=== PATIENT | male | born 1960 | race Caucasian/White ===

== ENCOUNTER → 2017-11-01 09:50 | Outpatient (CLI) | payer OTHER, SELFPAY ==
[2017-11-01 11:23] LABS: ALB/GLOB Ratio 1.2 RATIO (0.9-2.4); AST(SGOT) 22 U/L (15-37); Alanine Aminotransfer ALT/SGPT 28 U/L (16-61); Albumin, Serum 3.7 g/dL (3.2-5.0); Alkaline Phosphatase 56 U/L (45-117); Anion Gap 9 (5-15); BUN 18 mg/dL (7-18); BUN/Creat Ratio 16.1 RATIO (10-20); Calcium,Total 8.4 mg/dL (8.5-10.1); Chloride 106 mmol/L (98-107); Cholesterol 146 mg/dL (200); Creatinine, Serum 1.12 mg/dL (0.70-1.30); EST Glomerular Filtration Rate 72 mL/min (>60); Est Glom Filt Rate - Afr Amer 87 mL/min (>60); Globulin 3.1 g/dL (2.2-4.2); Glucose 100 mg/dL (74-106); High Density Lipoprotein 41 mg/dL; Potassium 4.1 mmol/L (3.5-5.1); Protein, Total 6.8 g/dL (6.4-8.2); Sodium Level 142 mmol/L (136-145); Triglycerides 71 mg/dL; Very Low Density Lipoprotein 14 mg/dL (5-40)
== END ==
PROVIDERS: Family Provider Family Medicine; PCP Family Medicine; Visit Provider Family Medicine
DX: I10 Essential (primary) hypertension (principal)
CPT/HCPCS: 36415; 80053; 80061

== ENCOUNTER 2017-11-14 14:00 | Outpatient (RCR) | payer OTHER, SELFPAY ==
--- NOTE | 2017-10-29 14:56 | HP.PTEVAL_ITS ---
Patient's Visit Information EDUARDO WESTBROOK is a 57 year old M referred to Physical Therapy by JAIR Wade with a diagnosis of L hip OA. Date of Evaluation: 10/29/17 Physical Therapist: Azam Hawkins DPT, OC - Visit Plan Frequency: 3x /Week Duration: 4-6 Weeks Plan: 3x/week for 3-6 weeks for. 1. rollout ITB, HS, Hip flexor adn quad and stretch, teach stretches for HEP, hip stabs for ext and abd adn progress to EHP. May use ESTIM and MH if painful. - Subjective Subjective: L hip is not getting better. Flared up with pain a couple years ago and got better on its own. Flared back up earlier this summer for a weeka nd got better. Then 2 weeks ago it started hurting again insidiously. Could hardly do anything weightbearing and walked very slow. Pain is anteror L hip and groin. Better once he gets moving, transitions are painful. Stabbing pain with flexion. Doctor x rayed and showed some OA. Sent for PT. F/U in 4 weeks. Sleep is Ok. Rolling can hurt. 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 Basic ADLs are OK, slower and painful. Walks for fitness with and she had to slow down. Hobbies include fishing and hiking but not lately becasue of hip. Grandkids were hard to play with this past weekend due to pain, ages 5,3,1. - Pain L hip anterior Pain Intensity (Out of 10): 0 Pain Intensity Range: 0, 6 - Objective L posterior pelvic rotation to avoid L hip ext at end stance. Slight antalgia today but not bad. Trasfers I but this hurts the most for a quick second as well as when he lifts the leg but not isometric hold. sensation LE WNL to gross light touch. reflexes 2/3 patella and achilles. Strength HIP ext and abd 4- and other hip 4+/5, knees 5/5 and ankles 5/5. Flexibility: HS mod tight , hip flexors max tight, ITB min tight B. AROM L hip flexion to 110 with mild discomfort, abd symmetrical, IR painful, ext rotation 50 degrees. R ext rotation 60 and IR not painful at 15 degrees. steps are reciprocal with a rail and hurts to ascend L hip, he tends to just use R. + L scour. - JOSE MANUEL, slight + FADDIR L - Goals Goal 1:: Pt feel 100% back to normal with L hip pain and gait Goal Time Frame: 4-6 Weeks Goal 2:: Pt I in appropriate ex to minimize future problems Goal Time Frame: 4-6 Weeks Goal 3:: Pt walk with at her normal speed for fitness without pain Goal Time Frame: 4-6 Weeks Goal 4:: Transfer out of chair without noticing pain and roll in bed easily. Goal Time Frame: 4-6 Weeks - Rehabilitation Potential Physical Therapy Diagnosis: L hip OA Rehabilitation Potential: Fair - Anticipated Interventions Patient/Client Instruction: Educate patient on: Condition, Plan of Care For the Purpose of:: To decrease pain, To improve muscle performance and motor function, To improve ability of physical actions for home/community/work/leisure Therapeutic Exercise to Include: Strength training, Flexibilty training, Gait and locomotor training, Active ROM For the Purpose of:: To decrease pain, To decrease swelling/inflammation, To increase ROM, To improve performance and independence with ADL's, To improve ability of physical actions for home/community/work/leisure Manual Therapy Techniques to Include: Soft tissue mobilization For the Purpose of:: To improve nutrient delivery to tissue TENS: Yes Thermo therapy (hot pack): Yes For the Purpose of:: To decrease pain Thank you for the opportunity to evaluate your patient. For Medicare and Medicare HMO plans, please review the plan of care and approve it. It will need to be FAXED BACK to us at [phone] for Medicare purposes. Please let me know if there are questions or concerns regarding this plan of care. Physician Signature: Date:
--- NOTE | 2017-11-14 15:13 | HP.PTREVAL_ITS ---
JAIR Wade, It has been my pleasure to treat EDUARDO WESTBROOK over the last 9 visits for L hip OA. Please see the progress note below for an update on the physical therapy plan of care! Subjective: Took anti inflammatory this morning. Will see doctor next week. Not sure next week. Pain this week has been 5/10 with transfers. in L groin. No pain at rest. Sleep is OK. HEP at home is stretches. Objective/Function: IR end range to L hip still mildly painful. Transfers adn gait are I but slight L antalgia. Strength in L hip 4/5 abd and ext. Still very tight in quad and hip flexor but no tenderness anteriorly. OVERALL SLIGHTLY BETTER BUT SLOW PROGRESS AND LIKELY DUE TO ANTI INFLAMMATORY IN PATIENT 'S MIND. Plan Plan: PATIENT TO F/U WITH DOCTOR NEXT WEEK AND CONTINUE WITH HEP AND F/U THREE WEEKS FOR EX PROGRESSION IF NEEDED(DIPS, SQUATS, SLS). PT TO CALL PRIOR IF WORSENS OR DOCTOR DESIRES SOMETHING DIFFERENT. POOL CAN BE CONSIDERED IF NO OTHER OPTIONS. Goals Goal 1:: Pt feel 100% back to normal with L hip pain and gait Goal Time Frame: 4-6 Weeks Goal Progress: Progressing Goal 2:: Pt I in appropriate ex to minimize future problems Goal Time Frame: 4-6 Weeks Goal Progress: Goal Met Goal 3:: Pt walk with at her normal speed for fitness without pain Goal Time Frame: 4-6 Weeks Goal Progress: Progressing Goal 4:: Transfer out of chair without noticing pain and roll in bed easily. Goal Time Frame: 4-6 Weeks Goal Progress: needs anti inflamm Anticipated Interventions Patient/Client Instruction: Educate patient on: Condition, Plan of Care For the Purpose of:: To decrease pain, To improve muscle performance and motor function, To improve ability of physical actions for home/community/work/leisure Therapeutic Exercise to Include: Strength training, Flexibilty training, Gait and locomotor training, Active ROM For the Purpose of:: To decrease pain, To decrease swelling/inflammation, To increase ROM, To improve performance and independence with ADL's, To improve ability of physical actions for home/community/work/leisure Manual Therapy Techniques to Include: Soft tissue mobilization For the Purpose of:: To improve nutrient delivery to tissue TENS: Yes Thermo therapy (hot pack): Yes For the Purpose of:: To decrease pain Please do not hesitate to contact me at [phone] by phone or Fax: if you have questions or concerns regarding this new plan of care! Sincerely, RAJINDER McgrathT, OC
--- NOTE | 2018-02-03 10:50 | HP.PT.NRP ---
HP - Discharge Summary (1) - Patient Information EDUARDO WESTBROOK was seen in my office for initial evaluation on 10/29/17. The following Plan of Care was established for this patient: Initial Frequency: 3x /Week Initial Duration: 4-6 Weeks - Anticipated Interventions Patient/Client Instruction: Educate patient on: Condition, Plan of Care For the Purpose of:: To decrease pain, To improve muscle performance and motor function, To improve ability of physical actions for home/community/work/leisure Therapeutic Exercise to Include: Strength training, Flexibilty training, Gait and locomotor training, Active ROM For the Purpose of:: To decrease pain, To decrease swelling/inflammation, To increase ROM, To improve performance and independence with ADL's, To improve ability of physical actions for home/community/work/leisure Manual Therapy Techniques to Include: Soft tissue mobilization For the Purpose of:: To improve nutrient delivery to tissue TENS: Yes Thermo therapy (hot pack): Yes For the Purpose of:: To decrease pain This patient was last seen in our office 11/14/17. Pertinent comments regarding their Physical therapy will appear below: Pt seen for 9 visits and was sent back to doctor following last session and was to f/u in three weeks to ensure progress. He neglected to schedule that visit adn at this point it has been over two months and I will discontinue him from my care. At this point I will be discontinuing this patient from physical therapy. I would be happy to see this patient again in the future if found appropriate by the physician. Thank you! Azam Hawkins, DPT, OC
== END 2017-11-14 19:00 | disposition home or self-care (01) ==
LOC: PT 14:00
PROVIDERS: Family Provider Family Medicine; PCP Family Medicine; Visit Provider Physician Assistant Surgical
DX: M16.12 Unilateral primary osteoarthritis, left hip (principal)
CPT/HCPCS: 97110; 97140; 97162; 97530

== ENCOUNTER 2017-11-18 06:05 | Day surgery (SDC) | payer OTHER, SELFPAY ==
[2017-11-18] VITALS (8 sets, daily range): BP systolic 82–144; BP diastolic 48–100; PULSE 65–70; RESP 16; TEMP 35.8–36.8; O2SAT 95–100; BMI 38.0
--- NOTE | 2017-11-18 | IMM_PTH ---
PATIENT: EDUARDO WESTBROOK LOC: EN U#:[id number] AGE/SX: 57/M ROOM: RE11/18/[address]: Dr. Valentin Garcia MD : 1960 BED: DIS: 11/18/2017 SPEC #: [id number] RECD: 11/19/17 14:00 STATUS: EDILBERTO REAnum #: [id number] ACITIE: 11/18/17 00:[address]: Valentin Garcia DEPT: IMMUNOHISTOCHEMISTRY RECD BY: Lissa Lubin ENTERED: 11/19/17 14:03 SP TYPE: IMMUNO OTHR DR: Dr. Ramsey Rosenthal, Tissues: A - Stomach, NOS B - Stomach, NOS C - Cardioesophageal junction D - Esophageal mucous membrane Procedures: H Pylori (initial) QUEEN-2 (initial) CK20 (add) CK7 (add) CK8 (add) HER2 BARRY (add) CDX2 (add) PHYSICIAN & INSTITUTION [place] [id number] SPECIMEN INFORMATION: Tissue Source: A ? Antrum, B ? Antral subcutaneous mass, C ? Mass of cardia, D ? Distal esophagus Clinical Info: Esophageal dysphagia Specimen Number: [id number] CPT code: 23814 x4, 46377 x7 METHODOLOGY: Deparaffinized sections of prefer/formalin-fixed tissue or PAP/DQ stained slides are incubated with monoclonal/polyclonal antibodies/oligonucleotide probes. Localization is made via biotin free immunoperoxidase method. Appropriate controls are performed and reacted as expected. Results on target cell population are indicated in the following table: RESULTS: ANTIBODY / CLONE RESULT Block A H Pylori (polyclonal) negative Block B H Pylori (polyclonal) negative Block C CK7 (OV-TL12/30) negative CK8 ([id number]) positive H Pylori (polyclonal) negative Block D Her-2neu (CB11) negative (1+) CK7 (OV-TL12/30) positive, focal CK8 (46byfnC87) positive CK20 (KS20.8) negative CDX2 ([id number]) positive QUEEN-2 (SP21) positive These tests were developed and their performance characteristics determined by [facility]. They may not have been cleared or approved by the U.S. Food and Drug Administration. The FDA has determined that such clearance or approval is not necessary. INTERPRETATION: A. Antrum, biopsy: Negative for Helicobacter pylori organisms. B. Antral mass, biopsy: Negative for Helicobacter pylori organisms. C. 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 Negative for Helicobacter pylori organisms. D. 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 SJ:wagner 11/20/17
--- NOTE | 2017-11-18 07:00 | EGD_PTH ---
PATIENT: EDUARDO WESTBROOK LOC: EN U#:[id number] AGE/SX: 57/M ROOM: RE11/18/[address]: Dr. Valentin Garcia MD : 1960 BED: DIS: 11/18/2017 SPEC #: [id number] RECD: 11/18/17 10:07 STATUS: EDILBERTO YUNIER #: [id number] CAITIE: 11/18/17 07:[address]: Valentin Garcia DEPT: SURGICAL PATHOLOGY RECD BY: Oscar Delgado ENTERED: 11/18/17 12:15 SP TYPE: EGD BIOPSY JOAN DR: Dr. Ramsey Rosenthal, DO Tissues: A - Gastric mucous membrane B - Gastric mucous membrane C - Gastric mucous membrane D - Esophageal mucous membrane Procedures: Surgery Specimen Level IV HEADER OPERATION: EGD PRE-OP DIAGNOSIS: Esophageal dysphagia TISSUE SUBMITTED: A ? Antral biopsy, B ? Antral subcutaneous mass biopsy, C ? Mass of cardia biopsy, D ? Distal esophagus biopsy MICROSCOPIC DIAGNOSIS A. Antral biopsy: Mild gastritis. B. Antral mass, biopsy: Mild gastritis. Negative for malignancy. C. 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 See comment. Chronic active gastritis. A few lymphoid aggregate formations, favor benign. D. 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 See comment. SJ:rg 11/19/17 COMMENT A & B. The results of immunohistochemistry for Helicobacter pylori will be reported separately ([id number]). C. The results of immunohistochemistry for Helicobacter pylori will be reported separately ([id number]). Immunohistochemistry ([id number]) supports the above diagnosis. D. Immunohistochemistry ([id number]) supports the above diagnosis. The tumor in specimen C & D shows similar morphologic features. Case has been reviewed in consultation with Dr. Shine who concurs with the above diagnosis. IDC:AM MICROSCOPIC DESCRIPTION Slides are reviewed. A & B. The specimen shows fragments of gastric mucosa with chronic inflammatory cell infiltrates in the lamina propria consisting of lymphocytes and plasma cells, consistent with mild chronic gastritis. GROSS DESCRIPTION A - Received in fixative is one container labeled with the patient's name and designated biopsy gastric antrum. The specimen consists of one irregular fragment of light edmondson soft tissue that measures 0.5 x 0.3 x 0.1 cm. The specimen is totally submitted in one cassette. B - Received in fixative is one container labeled with the patient's name and designated antral subcutaneous mass biopsy. The specimen consists of one irregular fragment of light edmondson soft tissue that measures 0.3 x 0.3 x 0.1 cm. The specimen is totally submitted in one cassette. C - Received in fixative is one container labeled with the patient's name and designated biopsy mass of cardia. The specimen consists of multiple irregular fragments of light edmondson soft tissue that in aggregate measure 1 x 0.3 x 0.1 cm. The specimen is totally submitted in one cassette. D - Received in fixative is one container labeled with the patient's name and designated biopsy distal esophagus. The specimen consists of multiple irregular fragments of light edmondson soft tissue that in aggregate measure 1 x 0.5 x 0.1 cm. The specimen is totally submitted in one cassette. / SJ:rg 11/18/17 TC:0 CPT: 37726 x4
--- NOTE | 2017-11-18 07:18 | CT_ITS ---
STUDY: CT CHEST WITH CONTRAST REASON FOR EXAM: Male, 57 years old. Esophageal mass seen on endoscopy. Abdominal bloating. RADIATION DOSAGE (If Supplied By Facility): CTDIvol = ( 23.48 ) mGy, DLP = ( 2497.6 ) mGycm TECHNIQUE: Transaxial imaging was performed following intravenous administration of 100 ml of Isovue 300 contrast material. Multiplanar coronal and sagittal images were reformatted. Individualized dose optimization techniques were used for this CT. COMPARISON: None. FINDINGS: The lungs are normal. There is no demonstrated pleural abnormality. Normal heart and pericardium. There are multiple small lymph nodes within the mediastinum, which are normal in size and morphology most compatible with reactive lymph hyperplasia. Normal hilar regions. Normal enhanced pulmonary arteries. Normal aorta arch and descending thoracic aorta. Normal osseous structures. There is a 1.5 cm x 1.4 cm x 2.8 cm nodular density along the right lateral wall of the distal esophagus extending into the gastroesophageal junction. Circumferential wall thickening at the gastroesophageal junction. CT/Chest WITH Contrast IMPRESSION: 1.5 cm x 1.4 cm x 2.8 cm nodular density in the right lateral wall of the distal esophagus at the level of the gastroesophageal junction with the evidence of circumferential wall thickening of the distal esophagus. Electronically Signed: Luis Miguel Bennett MD at 10:46 EDT Tel [phone], Service support ,
--- NOTE | 2017-11-18 07:18 | CT_ITS ---
STUDY: CT ABDOMEN AND PELVIS WITH CONTRAST REASON FOR EXAM: Male, 57 years old. Esophageal mass seen on endoscopy. RADIATION DOSAGE (If Supplied By Facility): CTDIvol = ( 23.48 ) mGy, DLP = ( 2497.6 ) mGycm TECHNIQUE: Transaxial images were obtained from the dome of the diaphragm to the symphysis pubis without oral contrast. 100 ml of Isovue 300 contrast was administered. Sagittal and coronal images were reconstructed. Individualized dose optimization techniques were used for this CT. COMPARISON: None. FINDINGS: The visualized lung bases are unremarkable. The visualized portions of the heart are within normal limits. 5.8 mm cyst in the inferior aspect of the right lobe of the liver. Normal gallbladder and extrahepatic biliary system. Normal spleen. Normal pancreas. Normal bilateral adrenal glands. Normal right kidney. Punctate calcification in the lower pole calyx of the left kidney. 1.7 cm x 1.6 cm nodular mass along the right lateral wall of the distal esophagus as it enters the gastroesophageal junction. Circumferential wall thickening of the gastroesophageal junction. Normal small intestine. Normal colon. The appendix is visualized and appears normal. There is scattered atherosclerotic calcification of the abdominal aorta, without a demonstrated aneurysm. Normal inferior vena cava. There is borderline retroperitoneal lymphadenopathy with enlarged nodes no greater than 10mm in the short axis diameter. Normal urinary bladder. Small benign-appearing bilateral inguinal lymph nodes. Normal abdominal wall. There are degenerative changes of the visualized lumbar spine. CT/Abdomen/Pelvis WITH Contrast IMPRESSION: Nodules seen along the right lateral wall of the distal esophagus with circumferential wall thickening of the gastroesophageal junction as described. Punctate calcification in the lower pole calyx of the left kidney. Electronically Signed: Luis Miguel Bennett MD at 10:50 EDT Tel [phone], Service support ,
--- NOTE | 2017-11-18 07:20 | PCM.OPRPT ---
Problem List (1) Dysphagia Status: Acute Qualifiers: Dysphagia type: esophageal phase Report of Operation Date of Procedure: 11/18/17 Pre-Operative Diagnosis: Esophageal dysphagia Post-Operative Diagnosis: Mass of the distal esophagus and cardiac at the e.g. junction with evidence of blood loss and ulceration Surgery/Procedure Performed:: Esophagogastroduodenoscopy with multiple cold forceps biopsies Description of Surgical Findings:: Timeout and informed consent was obtained. 87-year-old gentleman was taken to the endoscopy suite. His oropharynx anesthetized with Topex. He was placed in a left lateral decubitus position. Throughout the procedure in aliquots received total 100 mg Demerol and 4 mg of Versed is intravenous sedation. Under direct physician videogastroscope was inserted into the hypopharynx which appear to be unremarkable. Photographs obtained. The scope was advanced into the esophagus. Proximal and mid portions of the esophagus did not appear to be remarkable. The EG junction was remarkable. In the very distal esophagus just proximal to the e.g. junction there was what appeared to be a subcutaneous mass. There is irregularity of the e.g. junction with evidence of ulceration and recent bleeding with coffee-ground material. The EG junction approximately a at 41-42 cm but was distorted. Upon the scope entering the stomach immediately there were coffee ground mucus staining. The scope was advanced down to the antral area with a subcutaneous mass approximately 10 cm from the pylorus was identified. Photographs obtained. Scope was advanced through the pylorus and the first and second portion of the duodenum were inspected this did not appear to be unremarkable. The scope was withdrawn back into the stomach some mild gastritis of the antrum noted. Biopsies obtained of the antrum with cold forceps. Cold forceps were used to sample the mucosa overlying the subcutaneous mass in the more proximal antrum with a photograph was taken. The scope was retroflexed and within the cardia a ulcerated mass at the e.g. junction was identified. Cold forceps were used to sample this and it was friable and bled easily. It seemed to involve at least 50% of the circumference of the e.g. junction. Multiple photographs were obtained. The area it appeared to be ulcerated with evidence of recent bleeding. After several biopsies were obtained from a retroflex view the scope was then straightened and withdrawn back into the distal esophagus where biopsies immediately at the e.g. junction were obtained. There appeared to be a portion of this friable mass that extended into the distal esophagus as well. Difficult to appreciate the extent. Multiple photographs of the distal esophagus with this friable protruding lesion was obtained. Cold forcep biopsies were obtained from this direction as well. Excess fluid nurse aspirated free the scope was withdrawn without additional abnormality. Impression Malignant appearing tumor at the e.g. junction involving the very distal esophagus and cardia. Evidence of recent coffee ground material consistent with ulceration and low-grade bleeding. Mild antral gastritis. Subcutaneous mass of the antrum as noted. Normal-appearing duodenum. Appropriate laboratory will be obtained. CT scan of the chest and abdomen will be obtained. Appropriate oncology referral will be obtained. Appropriate treatment will be expedited for this patient. Medications were given at 0701. The scope was inserted 0704. Procedure was completed at 0712. Cc: Dr. Ishan Garcia M.D., F.A.C.S. Type of Anesthesia:: IV Sedation
[2017-11-18 07:46] LABS: Absolute Lymphocyte Count 0.99 X10^3/ul (0.83-4.51); Absolute Neutrophil Count 4.3 X10^3/uL (2.0-7.7); Basophil# 0.03 X10^3/uL; Basophil% 0.5 % (0-1); Eosinophil# 0.09 X10^3/uL; Eosinophils% 1.5 % (0-5); Hematocrit 25.7 % (40-54); Hemoglobin 7.6 g/dl (13.0-16.5); Lymphocyte # 0.99 X10^3/ul (4.0); Lymphocyte % 16.4 % (19-41); Mean Corp Hgb Conc 29.6 g/gl (32-36); Mean Corpuscular Hgb 22.8 pg (27.0-32.0); Mean Corpuscular Volume 77.2 fL (80-94); Mean Platelet Vol. 10.5 fl (6.2-12.0); Monocyte# 0.63 X10^3/uL; Monocyte% 10.4 % (0-10); Neutrophil # 4.31 X10^3/uL (2.7-7.7); Neutrophil % 71.2 % (47-70); Platelet Count 187 K/mm3 (150-450); RBC Distribution Width CV 15.1 % (11.6-14.6); RBC Distribution Width SD 41.4 fl (35.1-43.9); Red Blood Count 3.33 M/mm3 (4.6-6.2); White Blood Count 6.1 K/mm3 (4.4-11.0)
[2017-11-18 08:00] LABS: POSITIVE COUNT NO; POSITIVE DIFFERENTIAL NO; POSITIVE MORPHOLOGY NO
[2017-11-18 10:45] LABS: ALB/GLOB Ratio 1.3 RATIO (0.9-2.4); AST(SGOT) 18 U/L (15-37); Alanine Aminotransfer ALT/SGPT 21 U/L (16-61); Albumin, Serum 3.3 g/dL (3.2-5.0); Alkaline Phosphatase 55 U/L (45-117); Anion Gap 10 (5-15); BUN 16 mg/dL (7-18); BUN/Creat Ratio 15.2 RATIO (10-20); Calcium,Total 8.2 mg/dL (8.5-10.1); Chloride 108 mmol/L (98-107); Creatinine, Serum 1.05 mg/dL (0.70-1.30); EST Glomerular Filtration Rate 78 mL/min (>60); Est Glom Filt Rate - Afr Amer 94 mL/min (>60); Estimated Creatinine Clearance 86.22 ml/min; Globulin 2.6 g/dL (2.2-4.2); Glucose 109 mg/dL (74-106); Potassium 4.1 mmol/L (3.5-5.1); Protein, Total 5.9 g/dL (6.4-8.2); Sodium Level 142 mmol/L (136-145)
[2017-11-19 11:19] LABS: Carcinoembryonic Antigen 2.1 ng/mL (0.0-4.7)
== END 2017-11-18 09:18 | disposition home or self-care (01) ==
LOC: EN 06:06 → AC 06:07
PROVIDERS: Family Provider Family Medicine; PCP Family Medicine; Visit Provider Surgery
PROC: (CPT 43239; principal; 2017-11-18 06:55)
DX: C16.0 Malignant neoplasm of cardia (principal); K29.70 Gastritis, unspecified, without bleeding; K22.11 Ulcer of esophagus with bleeding; R13.19 Other dysphagia; I10 Essential (primary) hypertension; G47.30 Sleep apnea, unspecified; E66.9 Obesity, unspecified; Z79.1 Long term (current) use of non-steroidal anti-inflammatories (NSAID); Z79.899 Other long term (current) drug therapy
CPT/HCPCS: 43239; 36415; 71260; 74177; 80053; 82378; 85025; 88305; 88341; 88342; 99152; 99153; J7120; Q9967; A4216

== ENCOUNTER → 2017-11-24 07:04 | Outpatient (CLI) | payer OTHER, SELFPAY ==
--- NOTE | 2017-11-24 07:50 | PET_ITS ---
EXAMINATION: FDG PET CT INDICATIONS: A 57-year-old male with 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 COMPARISON EXAMINATION: CT of the chest report dated 11/18/17, CT of the abdomen and pelvis report dated 11/18/17. INDEX LESION SIZE SUV INTERPRETATION Distal esophagus, gastroesophageal junction, gastric cardia 50.9 mm x 41.4 mm (frame 183) 11.0 Fulfills quantitative criteria for viable neoplasm Subcarinal mediastinum 12.6 mm largest (frame 201) 3.3 (max) Fulfills borderline quantitative criteria for viable neoplasm TECHNIQUE: Following the intravenous administration of 15.63 mCi of F-18 deoxyglucose via the left antecubital fossa, multiplanar image acquisitions of the neck, chest, abdomen and pelvis to level of mid thigh, obtained at one hour post radiopharmaceutical administration contemporaneously interpreted with the current CT of the neck, chest, abdomen and pelvis to level of mid thigh, dated 11/24/[address] of the chest report dated 11/18/17, CT of the abdomen and pelvis report dated 11/18/17 reveal: SERUM GLUCOSE LEVEL: 119 mg/dl. HEIGHT: 72 inches. WEIGHT: 275 lbs. FINDINGS: 1. An increase in glucose metabolism is demonstrated in the distribution of the distal esophagus, gastroesophageal junction extending to the gastric cardia. The calculated maximum standard uptake value is 11.0. The maximal axial diameter of the corresponding metabolic, morphologic abnormality on review of CT of the thorax dated 11/24/17 is approximately 50.9 mm (transverse) x 41.4 mm (AP). 2. An increase in FDG concentration appears evident in the subcarinal mediastinum to the left of the midline generating a calculated maximum standard uptake value of 3.3. The maximal axial diameter of the corresponding hypermetabolic soft tissue density on review of CT of the thorax dated 11/24/17 is 12.6 mm (transverse). 3. Normal physiologic distribution of the radiopharmaceutical is apparent in the hepatic (2.8) and splenic parenchyma, both renal units, bladder and visualized intestinal tract. There is uniform distribution of the radiopharmaceutical concentration defined in the visualized cerebellar hemispheres and cerebral cortical structures.? Diffuse intestinal tract activity is noted throughout all four quadrants of the abdominal-pelvic retroperitoneum, mesentery consistent with normal physiologic distribution of the radiopharmaceutical. Homogeneous radiopharmaceutical concentration is apparent in the visualized appendicular-axial skeletal structures. Pertinent CT findings are as follows. CHEST: Bilateral axillary soft tissue densities with fatty hilus formation are non-glucose avid. Subcentimeter additional mediastinal soft tissue is ametabolic. There are no parenchymal densities-nodules noted in the right-left hemithorax demonstrating discernible, quantitatively significant enhanced glucose metabolism. ABDOMEN AND PELVIS: Atherosclerotic calcification is defined in the abdominal aorta without evidence of dilatation, aneurysm formation. Dystrophic calcification manifest within the prostate gland demonstrates no evidence of quantitatively significant enhanced glucose metabolism. Right-left inguinal soft tissue densities with fatty hilus formation reveal no evidence of increased glucose metabolism. SKELETAL: Degenerative changes defined in the cervical, thoracic and lumbar spine demonstrate no evidence for glucose hypermetabolism. PET/PET/CT Tumor Base -Thigh Init IMPRESSION: 1. ABNORMAL EXAMINATION INDICATIVE OF MALIGNANT VIABLE NEOPLASM. 2. Increased radiopharmaceutical concentration defined in the distal esophagus fulfills quantitative criteria for viable neoplasm. 3. The subcarinal mediastinal hypermetabolic focus fulfills borderline quantitative criteria for viable neoplasm. (Nicolasa et al, Journal of Clinical Oncology 16:2142, 1998). 4. Homogenous increased glucose metabolism manifest in the visualized appendicular-axial skeletal structures, in the absence of chemotherapeutic intervention and marrow stimulation, is consistent with the pattern associated with hyperplasia of the hematopoietic marrow. (Moiz, AJR 180:669, 2003). 5. No other quantitatively significant hypermetabolic abnormalities are noted. There is no definitive scintigraphic evidence of distant metastatic disease. Electronic Signature Yahir Barbour D.O. Electronically Signed: Yahir Barbour DO at 8:12 EDT Tel , Service support ,
== END ==
PROVIDERS: Family Provider Family Medicine; PCP Family Medicine; Visit Provider Internal Medicine Hematology & Oncology
DX: C15.5 Malignant neoplasm of lower third of esophagus (principal)
CPT/HCPCS: 78815; A9552; A4216

== ENCOUNTER 2017-11-25 09:59 | Outpatient (RCR) | payer OTHER, SELFPAY | END 2017-12-07 23:59 | LOC: NS 09:59 | PROVIDERS: Family Provider Family Medicine; PCP Family Medicine; Visit Provider Internal Medicine Hematology & Oncology | DX: D50.9 Iron deficiency anemia, unspecified (principal); Z71.3 Dietary counseling and surveillance | CPT/HCPCS: 97802 ==

== ENCOUNTER → 2017-12-04 08:11 | Outpatient (CLI) | payer OTHER, SELFPAY ==
[2017-12-01 15:00] VITALS: BMI 37.5
--- NOTE | 2017-12-04 08:16 | EKG12_ITS ---
Test Reason : PREOP Blood Pressure : / mmHG Vent. Rate : 070 BPM Atrial Rate : 070 BPM P-R Int : 146 ms QRS Dur : 136 ms QT Int : 390 ms P-R-T Axes : 055 -35 042 degrees QTc Int : 421 ms Normal sinus rhythm Left axis deviation Right bundle branch block Left ventricular hypertrophy with QRS widening Abnormal ECG Confirmed by FAITH SIMMS, MANDEEP ([id number]), tape editor JOSY GONZALES ([id number]) on 12/05/2017 1:27:04 PM Referred By: Valentin Garcia Confirmed By:MANDEEP CUEVAS MD
[2017-12-04 09:33] LABS: Hematocrit 35.1 % (40-54); Hemoglobin 10.5 g/dl (13.0-16.5); Mean Corp Hgb Conc 29.9 g/gl (32-36); Mean Corpuscular Hgb 23.7 pg (27.0-32.0); Mean Corpuscular Volume 79.2 fL (80-94); Mean Platelet Vol. 11.1 fl (6.2-12.0); Platelet Count 250 K/mm3 (150-450); RBC Distribution Width CV 20.6 % (11.6-14.6); RBC Distribution Width SD 53.7 fl (35.1-43.9); Red Blood Count 4.43 M/mm3 (4.6-6.2); White Blood Count 6.9 K/mm3 (4.4-11.0)
[2017-12-04 09:39] LABS: Scan Indicated on CBC? Y/N YES- FLAGS NOTED
[2017-12-04 09:55] LABS: Differential Comment SCANNED
== END ==
PROVIDERS: Family Provider Family Medicine; PCP Family Medicine; Referring Provider Surgery; Visit Provider Surgery
DX: Z01.818 Encounter for other preprocedural examination (principal); D64.9 Anemia, unspecified
CPT/HCPCS: 36415; 85027; 93005

== ENCOUNTER 2017-12-08 10:29 | Day surgery (SDC) | payer OTHER, SELFPAY ==
[2017-12-01 15:00] VITALS: BMI 37.5
[2017-12-08 10:48] VITALS: BP 138/80; PULSE 62; RESP 16; TEMP 36.3; O2SAT 99; BMI 37.3
--- NOTE | 2017-12-08 12:14 | DCINST_ITS ---
Discharge Diet: Light diet - advance as tolerated - if you have questions about your diet instructions, please talk to you doctor. Discharge Activity: May Not Drive - for 1 week or while taking narcotic pain medicine. May shower in (days): 1 Lifting Restrictions: 10 pounds Call your doctor if your incision/area has: Continuous Slow Oozing, Sudden Increased Bleeding, Increased Pain/ Swelling, Increased Redness, Foul Smelling Discharge Call your doctor if you observe: Fever of 101 or Higher Suture Line Care: Avoid Pulling/Pushing, Avoid Pinching/Bending Additional Dressing/Incision Instructions:: Change or remove dressing in 4 days. Leave steri-strips in place for 1 week. Allergies/Adverse Reactions: Allergies hydrocodone [From Vicodin] Allergy (Severe, Verified 12/04/17 14:13) Hallucination Penicillins Allergy (Severe, Verified 12/04/17 14:13) Rash Sulfa (Sulfonamide Antibiotics) Allergy (Severe, Verified 12/04/17 14:13) Rash Medications to take at Discharge Multivitamin [Multiple Vitamins] 1 ea PO DAILY 11/18/17 alprazolam 0.5 mg tablet 0.5 mg PO BID-TID PRN #30 tab 11/18/17 atenolol 50 mg tablet 50 mg PO DAILY #90 tab 11/18/17 ferrous sulfate 325 mg (65 mg iron) tablet,delayed release 325 mg PO DAILY #60 tab 11/19/17 Lidocaine/Prilocaine [Lidocaine-Prilocaine Cream] 30 gm TP DAILY PRN PRN #1 cream..g. 12/04/17 Ondansetron [Zofran Odt] 4 mg PO Q8H PRN 30 Days #30 tab.rapdis 12/04/17 Ascorbic Acid [Vitamin C] 500 mg PO DAILY 12/05/17 Oxycodone HCl/Acetaminophen [Percocet 5/325] 1 tablet PO Q6H PRN PRN 3 Days #8 tablet 12/08/17 The following prescriptions were given: Oxycodone HCl/Acetaminophen [Percocet 5/325] 1 tablet PO Q6H PRN PRN 3 Days #8 tablet PRN Reason: Pain Primary Care Physician: Ramsey Rosenthal DO [Primary Care Provider] - Test Results: Test results from this visit will be discussed in further detail at your follow- up appointment, if applicable. Please Follow Up With: Valentin Garcia MD - [phone] When: Call to make an appointment to be seen in about 10 days.
[2017-12-08] MEDS: Bupivacaine Mpf 0.5% 30 ML VIAL (12:22)
--- NOTE | 2017-12-08 13:03 | PCM.OPRPT ---
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 57-year-old gentleman was taken the operating place upon the table. He underwent monitored anesthesia care. Clindamycin 900 g were given intravenously preoperatively because of the patient's penicillin allergy. I elected to use a 6 [place] PowerPort. Reference #[id number]. Lot number [id number]. Expiry date 07/08/2019. The right neck and chest were sterilely prepped draped. 1% lidocaine mixed 50-50 with 0.5% Marcaine was used as local anesthetic. Throughout the procedure total 16 cc was used. Under ultrasound guidance I initially placed a right internal jugular micropuncture needle micropuncture wire the wire did not advance so then I used the introducing needle with the kit. I advanced an 035 J-wire. Fluoroscopy demonstrated good positioning. I instituted a local down upon the right chest wall. Then a transverse incision was created. Using electrocautery I made a subcutaneous pocket. The tubing was then connected from the chest to the neck site. Sheath dilator was placed over the wire. The dilator and wire removed. The catheter was advanced through the sheath. The sheath was split. Because of the patient's body habitus I could not clearly see the tubing and so I used 2 cc of Isovue. That allowed me to see the tip of the catheter in position at the SVC atrial junction. I amputated the catheter connected to the port secured it with a port attachment device placed the port within the pocket with 2-0 silk. Upon aspiration however there appeared to be some kinking. So I released the port reinspected it there had been a small kinking of the tubing IN IN did that. I trimmed the tubing slight amount readjusted with new attachment device replaced the port in the pocket secured it there with one simple suture of 2-0 silk. The port at this time accessed and aspirated and flushed very easily. It was flushed with saline then 2-1/2 cc of heparinized saline. The port site was closed with interrupted 3-0 Vicryl subdermal stitches. The neck was closed with interrupted 5-0 Vicryl subdermal stitches. Steri-Strips Telfa and OpSite dressings applied. Sponge and instrument and needle counts were reported the surgeon be correct. Blood loss was minimal. He tolerated procedure well. He was taken to the recovery area in satisfactory condition without apparent complication. Stat portable chest x-ray is pending. No apparent complication. Specimens none. Drains none. Blood loss minimal. Valentin Garcia M.D., F.A.C.S. Type of Anesthesia:: Local MAC Anesthesiologist: Amena Strickland
--- NOTE | 2017-12-08 13:07 | OP.PCM_ITS ---
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 57-year-old gentleman was taken the operating place upon the table. He underwent monitored anesthesia care. Clindamycin 900 g were given intravenously preoperatively because of the patient's penicillin allergy. I elected to use a 6 [place] PowerPort. Reference #[id number]. Lot number [id number]. Expiry date 07/08/2019. The right neck and chest were sterilely prepped draped. 1% lidocaine mixed 50- 50 with 0.5% Marcaine was used as local anesthetic. Throughout the procedure total 16 cc was used. Under ultrasound guidance I initially placed a right i nternal jugular micropuncture needle micropuncture wire the wire did not advance so then I used the introducing needle with the kit. I advanced an 035 J-wire. Fluoroscopy demonstrated good positioning. I instituted a local down upon the right chest wall. Then a transverse incision was created. Using electrocautery I made a subcutaneous pocket. The tubing was then connected from the chest to the neck site. Sheath dilator was placed over the wire. The dilator and wire removed. The catheter was advanced through the sheath. The sheath was split. Because of the patient's body habitus I could not clearly see the tubing and so I used 2 cc of Isovue. That allowed me to see the tip of the catheter in position at the SVC atrial junction. I amputated the catheter connected to the port secured it with a port attachment device placed the port within the pocket with 2-0 silk. Upon aspiration however there appeared to be some kinking. So I released the port reinspected it there had been a small kinking of the tubing IN IN did that. I trimmed the tubing slight amount readjusted with new attachment device replaced the port in the pocket secured it there with one simple suture of 2-0 silk. The port at this time accessed and aspirated and flushed very easily. It was flushed with saline then 2-1/2 cc of heparinized saline. The port site was closed with interrupted 3-0 Vicryl subdermal stitches. The neck was closed with interrupted 5-0 Vicryl subdermal stitches. Steri-Strips Telfa and OpSite dressings applied. Sponge and instrument and needle counts were reported the surgeon be correct. Blood loss was minimal. He tolerated procedure well. He was taken to the recovery area in satisfactory condition without apparent complication. Stat portable chest x-ray is pending. No apparent complication. Specimens none. Drains none. Blood loss minimal. Valentin Garcia M.D., F.A.C.S. Type of Anesthesia:: Local MAC Anesthesiologist: Amena Strickland
[2017-12-08 13:11] VITALS: BP 118/74; BP 138/80; PULSE 80; RESP 16; TEMP 36.1; O2SAT 100
[2017-12-08 13:15] VITALS: BP 114/75; BP 138/80; PULSE 58; RESP 16; O2SAT 97
--- NOTE | 2017-12-08 13:18 | RAD_ITS ---
STUDY: X-RAY CHEST REASON FOR EXAM: Male, 57 years old. Post port placement. TECHNIQUE: Single AP portable view of the chest. COMPARISON: None. FINDINGS: A right-sided portacatheter has been placed. The tip is in the proximal portion of the superior vena cava. The lungs are clear and expanded. There is no demonstrated pleural abnormality. Normal size heart. Normal mediastinum and osmin. Normal visualized pulmonary arteries. Normal visualized aortic arch and descending thoracic aorta. There are diffuse degenerative changes of the visualized thoracic spine. Normal visualized ribs, clavicles, and shoulders. There is no demonstrated abnormality of the visualized soft tissue structures of the upper abdomen. RAD/Chest 1 View (Portable) IMPRESSION: The tip of the manju catheter is in the proximal portion of the superior vena cava. Electronically Signed: Luis Miguel Bennett MD at 14:44 EDT Tel [phone], Service support ,
[2017-12-08 13:20] VITALS: BP 108/67; BP 138/80; PULSE 57; RESP 16; O2SAT 99
[2017-12-08 13:33] VITALS: BP 105/68; BP 138/80; PULSE 57; RESP 16; TEMP 36.6; O2SAT 97
[2017-12-08 14:30] VITALS: BP 138/80
== END 2017-12-08 14:35 | disposition home or self-care (01) ==
LOC: SDC 10:30 → AC 10:31
PROVIDERS: Family Provider Family Medicine; PCP Family Medicine; Referring Provider Surgery; Visit Provider Surgery
PROC: (CPT 36561; principal; 2017-12-08 12:15)
DX: C15.5 Malignant neoplasm of lower third of esophagus (principal); D64.9 Anemia, unspecified; Z86.718 Personal history of other venous thrombosis and embolism; L40.9 Psoriasis, unspecified; I10 Essential (primary) hypertension; G47.30 Sleep apnea, unspecified
CPT/HCPCS: 00532; 36561; 71045; 77001; J7120; C1788

== ENCOUNTER 2017-12-29 09:17 | Outpatient (RCR) | payer OTHER, SELFPAY ==
[2017-11-25 11:04] VITALS: BMI 37.5
[2017-12-01 15:00] VITALS: BMI 37.5
== END 2018-01-07 23:59 ==
LOC: NS 09:17
PROVIDERS: Family Provider Family Medicine; PCP Family Medicine; Visit Provider Internal Medicine Hematology & Oncology
DX: D50.9 Iron deficiency anemia, unspecified (principal); Z71.3 Dietary counseling and surveillance
CPT/HCPCS: 77336; 77386; 97803

== ENCOUNTER 2018-02-02 13:24 | Outpatient (RCR) | payer OTHER, SELFPAY ==
[2017-12-01 15:00] VITALS: BMI 37.5
[2018-01-27 12:47] VITALS: BMI 36.2
== END 2018-02-06 23:59 ==
LOC: NS 13:24
PROVIDERS: Family Provider Family Medicine; PCP Family Medicine; Visit Provider Internal Medicine Hematology & Oncology
DX: D50.9 Iron deficiency anemia, unspecified (principal); Z71.3 Dietary counseling and surveillance
CPT/HCPCS: 97803

== ENCOUNTER → 2018-03-27 12:00 | Outpatient (CLI) | payer OTHER, SELFPAY ==
[2017-12-01 15:00] VITALS: BMI 37.5
[2018-01-27 12:47] VITALS: BMI 36.2
--- OUTSIDE RECORDS SUMMARY | 2018-06-01 04:46 | XMS RPT_ITS | Summary of Care ---
:1960 Author Organization [facility]'s Address [address] [place] [address] Phone Care Team Providers Name Role Phone GaloRamsey Edward JIMENEZ Primary Care Provider Erika Doan RN Unavailable Unavailable Valentin Myers MD Unavailable Reason for Referral MRI/CAT Scan (Routine) Status Reason Specialty Diagnoses / Procedures Referred By Contact Referred To Contact Closed Diagnoses Malignant neoplasm of esophagus, unspecified location Brigid Harper, Procedures CT ABDOMEN WITH CONTRAST HI CT SCAN OF ABDOMEN CONTRAST DIGITAL DATA ANALYST-INSTRUCTIONAL RESOURCE TEACHER [address] [place] [id number] MRI/CAT Scan (Routine) Status Reason Specialty Diagnoses / Procedures Referred By Contact Referred To Contact Closed Diagnoses Malignant neoplasm of esophagus, unspecified location Brigid Harper, Procedures CT ABDOMEN WITH CONTRAST HI CT SCAN OF ABDOMEN CONTRAST DIGITAL DATA ANALYST-INSTRUCTIONAL RESOURCE TEACHER [address] [address] Reason for Visit MRI/CAT Scan (Routine) Status Reason Specialty Diagnoses / Procedures Referred By Contact Referred To Contact Closed Diagnoses Malignant neoplasm of esophagus, unspecified location Brigid Harper, Procedures CT ABDOMEN WITH CONTRAST HI CT SCAN OF ABDOMEN CONTRAST DIGITAL DATA ANALYST-INSTRUCTIONAL RESOURCE TEACHER [address] [address] Encounter Details Date Type Department Care Team Description 02/17/2018 Hospital Encounter Imaging Outpatient Care Brigid Harper, Sammy Calle DIGITAL DATA ANALYST-INSTRUCTIONAL RESOURCE TEACHER [address] [place] [address] [place] [address] Allergies Active Allergy Reactions Severity Noted Date Comments Penicillins 12/05/2017 Sulfa Antibiotics 12/05/2017 Hydrocodone-Acetaminophen 12/05/2017 as of this encounter Medications Prescription Sig. Disp. Refills Start Date End Date Status atenolol 50 MG Tab tablet DAILY 11/18/2017 Active Ascorbic Acid 100 MG Chew DAILY 11/18/2017 Active Tab ALPRAZolam 0.5 MG Tab 2 to 3 times per 11/18/2017 Active tablet day PRN For anxiety ferrous sulfate 324 (65 Fe) Take 324 mg by Active MG Tab DR tablet mouth 3 times daily with meals. ondansetron 8 MG Tab tablet Take 8 mg by Active mouth every 8 hours as needed for Nausea. prochlorperazine 10 MG Tab Take 10 mg by Active tablet mouth every 6 hours as needed. as of this encounter Active Problems Problem Noted Date Obesity: body mass index of 35.0-39.9 02/17/2018 Malignant neoplasm of lower third of esophagus 12/17/2017 Social History Tobacco Use Types Packs/Day Years Used Date Never Smoker Smokeless Tobacco: Never Used Alcohol Use Drinks/Week oz/Week Comments Yes socially Sex Assigned at Date Recorded Not on file as of this encounter Last Filed Vital Signs Vital Sign Reading Time Taken Blood Pressure 129/78 02/17/2018 4:36 PM EST Pulse 98 02/17/2018 4:36 PM EST Temperature - - Respiratory Rate - - Oxygen Saturation - - Inhaled Oxygen Concentration - - Weight - - Height 180.3 cm (5' 11) 02/17/2018 4:36 PM EST Body Mass Index - - in this encounter Functional Status Functional Status Response Date of Assessment Does this person have serious difficulty walking or Yes 01/20/2018 climbing stairs? as of this encounter Plan of Treatment Upcoming Encounters Date Type Specialty Care Team Description 03/11/2018 Pre-Operative Internal Medicine Callie Conklin MD Assessment [address] [place] [address] 04/09/2018 Hospital Encounter Multispecialty Valentin Myers Malignant neoplasm MD [place] of lower third of [address] esophagus [address] [place] [address] [phone] 04/09/2018 Procedure Pass Multispecialty Pending Results Name Priority Associated Diagnoses Date/Time CT ABDOMEN WITH CONTRAST Routine Malignant neoplasm of 02/17/2018 5:40 PM EST esophagus, unspecified location Scheduled Tests Name Priority Associated Diagnoses Order Schedule CT ABDOMEN WITH CONTRAST Routine Malignant neoplasm of 1 Occurrences starting esophagus, unspecified 02/17/2018 until location 02/17/2018 Health Maintenance Due Date Last Done Comments HEPATITIS C VIRUS SCREENING 1961 HIV SCREENING DISCUSSION 1974 TETANUS 10/21/1979 TDAP (ADULT) 1980 LIPID SCREENING 2001 COLON CANCER SCREENING DISCUSSION 10/21/2011 PROSTATE CANCER SCREENING DISCUSSION 10/21/2011 INFLUENZA VACCINE Completed 12/04/2017, 03/20/2009 as of this encounter Goals Goal Patient Goal Associated Recent Patient-Stated? Author Type Problems Progress Treatment Lifestyle No Suze Doan, LASHAE Note: Kareem Gomez and caregiver will be knowledgeable of plan of care. Seunll be compliant with treatment regimen. As evidenced by patient? s ability to recognize barriers to compliance and kn ow who to contact with questions or concerns. [facility] provided Kareem with education related to above. nutrition Lifestyle No Erika Doan, LASHAE Note: Formatting of this note may be different from the original. Kareem Gomez will maintain adequate nutrition and hydration status prior to, during, and after treatment. Kareem and caregiver will be educated on well balanced and nutritious meals, that can be modified based on preference and needs. Kareem and caregiver will discuss adequate hydration goal with healthcare provider, and will attempt to reach this goal daily. [facility] provided Kareem with education related to above. Wt Readings from Last 3 Encounters: 01/20/18 121.4 kg (267 lb 9.6 oz) 12/09/17 126 kg (277 lb 12.8 oz) as of this encounter Procedures Procedure Name Priority Date/Time Associated Diagnosis Comments CT CHEST WITH Routine 02/17/2018 5:40 PM Malignant neoplasm Results for this CONTRAST EST of esophagus, procedure are in unspecified location the results section. in this encounter Visit Diagnoses Diagnosis Malignant neoplasm of esophagus, unspecified location Administered Medications Inactive Administered Medications - up to 3 most recent administrations Medication Order MAR Action Action Date Dose Rate Site iohexol (OMNIPAQUE) 300 MG/ML Given - Radiology 02/17/2018 17:45 EST 50 mL vial 50 mL 50 mL, Oral, ONCE, 1 dose, 02/17/18 at 1745, Mix with 950ml of water iohexol (OMNIPAQUE) 350 MG/ML Given - Radiology 02/17/2018 17:45 EST 110 mL injection 1-171 mL 1-171 mL, Intravenous, ONCE, 1 dose, 02/17/18 at 1745, CT Procedure sodium chloride (PF) 0.9% injection 1-100 mL Given 02/17/2018 17:41 EST 20 mL 1-100 mL, Intravenous, ONCE NEEDED, 1 dose, Starting 02/17/18 at 1741, Until Fri02/17/18 at 1741, Flush, CT Procedure in this encounter
--- OUTSIDE RECORDS SUMMARY | 2018-06-01 04:46 | XMS RPT_ITS | Summary of Care ---
:1960 Author Organization [facility] Address [address] [place] [address] Phone Care Team Providers Name Role Phone Ramsey Rosenthal DO Primary Care Provider Erika Doan RN Unavailable Unavailable Valentin Myers MD Unavailable Reason for Visit Reason Comments Other Encounter Details Date Type Department Care Team Description 02/10/2018 Telephone Division of CardioThoracic Valentin Myers MD Other [facility] [address] [place] [address] 2nd Floor [address] [place] [address] 2nd Floor [phone] [place] [address] [phone] Allergies Active Allergy Reactions Severity Noted Date [...] this encounter Active Problems Problem Noted Date Malignant neoplasm of lower third of esophagus 12/17/2017 Social History Tobacco Use Types Packs/Day Years Used Date Never Smoker Smokeless Tobacco: Never Used Alcohol Use Drinks/Week oz/Week Comments Yes socially Sex Assigned at Date Recorded Not on file as of this encounter Functional Status Functional Status Response Date of Assessment Does this person have serious difficulty walking or Yes 01/20/2018 climbing stairs? as of this encounter Plan of Treatment Upcoming Encounters Date Type Specialty Care Team Description 02/17/2018 Hospital Encounter Nuclear Medicine Valentin Myers MD [address] 2nd Floor [place], [place] [id number] 02/17/2018 Appointment Echocardiography Fransisco Camacho DO [address] 5th [address] [place] [address] 02/17/2018 Appointment Pulmonary Diagnostics 02/17/2018 Office Visit Thoracic Surgery Valentin Myers MD [address] [place] [address] 02/17/2018 Clinical Support Nutrition and Dietetics Georgi, Encounter Janneth Carrera RD [address] [place] [address] [phone] Health Maintenance Due Date Last Done Comments [...] will be knowledgeable of plan of care. Chandler be compliant with treatment regimen. As evidenced by patient? s ability to recognize barriers to compliance and kn ow who to contact with questions or concerns. [facility] provided Kareem with education related to [...] will attempt to reach this goal daily. [facility] provided Kareem with education related to above. Wt Readings from Last 3 Encounters: 01/20/18 121.4 kg (267 lb 9.6 oz) 12/09/17 126 kg (277 lb 12.8 oz) as of this encounter
--- OUTSIDE RECORDS SUMMARY | 2018-06-01 04:46 | XMS RPT_ITS | Summary of Care ---
:1960 Author Organization [facility] Address [address] [place] [address] Phone Care Team Providers Name Role Phone GaloRamsey Primary Care Provider Erika Doan RN Unavailable Unavailable Valentin Myers MD Unavailable Reason for Referral MRI/CAT Scan (Routine) Status Reason Specialty Diagnoses / Referred By Referred To Procedures Contact Contact New Request Diagnoses Malignant neoplasm of esophagus, unspecified location Brigid Harper, Procedures CT ABDOMEN WITH CONTRAST VA CT SCAN OF ABDOMEN CONTRAST PERMANENT MOLD SUPERVISOR-PETROLEUM TERMINAL PLANT OPERATOR [address] [place] [address] MRI/CAT Scan (Routine) Status Reason Specialty Diagnoses / Referred By Referred To Procedures Contact Contact New Request Diagnoses Malignant neoplasm of esophagus, unspecified location Brigid Harper, Procedures CT CHEST WITH CONTRAST VA CAT SCAN OF CHEST CONTRAST PERMANENT MOLD SUPERVISOR-PETROLEUM TERMINAL PLANT OPERATOR [address] [place] [address] Encounter Details Date Type Department Care Team Description 02/11/2018 Orders Only T/S Brigid Harper, Malignant neoplasm of [address] PERMANENT MOLD SUPERVISOR-PETROLEUM TERMINAL PLANT OPERATOR esophagus, unspecified [place], [place] [address] location (Primary Dx) [id number] 2nd [address] [place] [address] [phone] Allergies Active Allergy Reactions Severity Noted Date [...] 01/20/2018 climbing stairs? as of this encounter Progress Notes Brigid Harper, BHARAT-PETROLEUM TERMINAL PLANT OPERATOR - 02/11/2018 11:20 AM ESTPET scan was denied by insurance. Per physician reviewer, they require a CT chest and CT abdomen before approving PET. He stated that pelvis was not necessary. Orders placed for CT chest and CT abdomenApproval code: [id number]. Will notify health officer with changes and notify Christina Tadeo of P2P results.in this encounter Plan of Treatment Upcoming Encounters Date Type Specialty Care Team Description 02/17/2018 Hospital Encounter Nuclear Medicine Valentin Myers MD [address]nd [place] [address] 02/17/2018 Appointment Echocardiography Fransisco Camacho DO [address] 5[address] [place] [address] 02/17/2018 Appointment Pulmonary Diagnostics 02/17/2018 Office Visit Thoracic Surgery Valentin Myers MD [address]nd [place] [address] 02/17/2018 Clinical Support Nutrition and Dietetics Georgi, Encounter Janneth Carrera, RD [address] [place] [address] [phone] Scheduled Tests Name Priority Associated Diagnoses Order Schedule CT CHEST WITH CONTRAST Routine Malignant neoplasm of Expected: 02/11/2018, esophagus, unspecified Expires: 02/11/[address] ABDOMEN WITH CONTRAST Routine Malignant neoplasm of Expected: 02/11/2018, esophagus, unspecified Expires: 02/11/2019 location Health Maintenance Due Date Last Done Comments [...] who to contact with questions or concerns. [facility] provided Kareem with education related to [...] will attempt to reach this goal daily. [facility] provided Kareem with education related to above. Wt Readings from Last 3 Encounters: 01/20/18 121.4 kg (267 lb 9.6 oz) 12/09/17 126 kg (277 lb 12.8 oz) as of this encounter Visit Diagnoses Diagnosis Malignant neoplasm of esophagus, unspecified location - Primary
--- OUTSIDE RECORDS SUMMARY | 2018-06-01 04:46 | XMS RPT_ITS | Summary of Care ---
:[address] [facility] Address [address] [place] [address] Phone Care Team Providers Name Role Phone GaloRamsey Edward JIMENEZ Primary Care Provider Erika Doan RN Unavailable Unavailable Valentin Myers MD Unavailable Reason for Referral MRI/CAT Scan (Routine) Status Reason Specialty Diagnoses / Procedures Referred By Contact Referred To Contact Closed Diagnoses Malignant neoplasm of esophagus, unspecified location Brigid Harper, Procedures CT CHEST WITH CONTRAST DC CAT SCAN OF CHEST CONTRAST DRUM STRAIGHTENER-LEADERSHIP PROGRAM INTERN [address] 2nd Floor [place] [phone] MRI/CAT Scan (Routine) Status Reason Specialty Diagnoses / Procedures Referred By Contact Referred To Contact Closed Diagnoses Malignant neoplasm of esophagus, unspecified location Brigid Harper, Procedures CT CHEST WITH CONTRAST DC CAT SCAN OF CHEST CONTRAST DRUM STRAIGHTENER-LEADERSHIP PROGRAM INTERN [address] [address] Reason for Visit MRI/CAT Scan (Routine) Status Reason Specialty Diagnoses / Procedures Referred By Contact Referred To Contact Closed Diagnoses Malignant neoplasm of esophagus, unspecified location Brigid Harper, Procedures CT CHEST WITH CONTRAST DC CAT SCAN OF CHEST CONTRAST DRUM STRAIGHTENER-LEADERSHIP PROGRAM INTERN [address] [address] Encounter Details Date Type Department Care Team Description 02/17/2018 Hospital Encounter Imaging Outpatient Care Brigid Harper [place] DRUM STRAIGHTENER-LEADERSHIP PROGRAM INTERN [address] [place] [address] [place], [place] [phone] Allergies Active Allergy Reactions Severity Noted Date [...] Internal Medicine Callie Conklin MD Assessment [address] [place] [address] 04/09/2018 Hospital Encounter Multispecialty Valentin Myers Malignant neoplasm MD [place] of lower third of [address] esophagus 2nd [place] [address] 04/09/2018 Procedure Pass Multispecialty Health Maintenance Due Date Last Done Comments HEPATITIS C VIRUS SCREENING 1960 HIV SCREENING DISCUSSION 1974 TETANUS 10/21/1979 TDAP (ADULT) 1980 LIPID SCREENING 2001 COLON CANCER SCREENING DISCUSSION 10/21/2011 PROSTATE CANCER SCREENING DISCUSSION 10/21/2011 INFLUENZA VACCINE Completed 12/04/2017, 03/20/2009 as of this encounter Goals Goal Patient Goal Associated Recent Patient-Stated? Author Type Problems Progress Treatment Lifestyle No Suze Doan, RN Note: Kareem Gomez and caregiver will be knowledgeable of plan of care. Chandler be compliant with treatment regimen. As evidenced by patient? s ability to recognize barriers to compliance and kn ow who to contact with questions or concerns. [facility] provided Kareem with education related to above. nutrition Lifestyle No Erika Doan, RN Note: Formatting of this note may be [...] will attempt to reach this goal daily. [facility] provided Kareem with education related to [...] location the results section. in this encounter Results CT CHEST WITH CONTRAST (02/17/2018 5:40 PM) Impressions Performed At IMPRESSION: RADIOLOGY 1.? Patchy new mild posteromedial bilateral lower lobe groundglass and nodular opacities with associated mild subpleural atelectasis/scarring, most likely infectious/inflammatory changes such as chronic aspiration. New 0.8 cm left lower lobe pleural/subpleural nodular opacity in this area could also be infectious/inflammatory etiology but is indeterminate. A few new right lower lobe ill-defined nodules are suggestive of infectious/inflammatory etiology but are nonspecific. Recommend follow-up chest CT to evaluate for stability and an interval of 2-3 months is suggested. 2.?Stable size of left mid/distal periesophageal/periaortic indeterminate enlarged lymph node. Recommend attention to this area on follow-up exam. 3.?Redemonstration of distal esophageal circumferential wall thickening asymmetric posteriorly and to the right compatible with patient's history of esophageal malignancy, but which shows apparent new/progressed extension into the proximal stomach wall. 4.?Please see separate abdomen/pelvis CT report of this same date for evaluation of the visualized upper abdominal structures. Narrative Performed At EXAM: CT CHEST WITH CONTRAST, 02/17/2018 17:40 PM RADIOLOGY COMPARISON: Outside institution chest CT dated November 18, 2017. CLINICAL INDICATIONS:?esophageal cancer; RELEVANT CLINICAL HISTORY:?C15.9:Malignant neoplasm of esophagus, unspecified location TECHNIQUE: Following the administration of intravenous contrast, axial CT images were reconstructed from the volumetric data set, from the thoracic inlet through the adrenal glands.?Coronal MIP images were also reconstructed. CONTRAST: iohexol (OMNIPAQUE) 350 MG/ML injection 1-171 mL; Route of Administration: Intravenous; Dose: 110 mL. iohexol (OMNIPAQUE) 300 MG/ML vial 50 mL; Route of Administration: Oral; Dose: 50 mL. FINDINGS: Lungs and Pleura: Patchy mild bilateral posteromedial lower lobe groundglass and small nodular opacities with mild subpleural atelectasis/scarring, most likely mild infectious/inflammatory changes such as mild aspiration. New left lower lobe posteromedial 0.8 cm pleural/subpleural nodular opacity could be infectious/inflammatory etiology but this is indeterminate (image 41). 2 adjacent new right lower lobe ill-defined 0.5 cm nodules are most likely infectious / inflammatory changes but are also nonspecific (image 43). No dense consolidation or pleural effusion. Tracheobronchial tree:?Trachea and central bronchi are patent. Mediastinum/Alfreda: Stable size of left mid/distal periesophageal/periaortic 1.8 x 1.4 cm lymph node, 1.7 x 1.4 cm previously (image 39). No hilar lymphadenopathy. Redemonstration of distal esophageal circumferential wall thickening which is thicker and more nodular posteriorly on the right compatible with patient's history of esophageal malignancy, with new/progressed extension of masslike wall thickening into the proximal stomach concerning for progressive malignancy (for example, images 41 through 55). Please see separate abdomen/pelvis CT report of this same date for further evaluation of the stomach. Axilla and Supraclavicular Region: No axillary or supraclavicular adenopathy. No visualized thyroid gland is unremarkable. Cardiovascular: The cardiac chambers and pericardium are within normal limits. The aorta and arch branch vessels, as well as the pulmonary arteries, are unremarkable. Upper Abdomen: Please see separate abdomen/pelvis CT report of this same date for evaluation of the visualized upper abdominal structures. Bones and Soft Tissue: No suspicious osseous lesion. Multilevel degenerative changes in the spine. Procedure Note User, Interfaces - 02/17/2018 9:02 PM EST EXAM: CT CHEST WITH CONTRAST, 02/17/2018 17:40 PM COMPARISON: Outside institution chest CT dated November 18, 2017. CLINICAL INDICATIONS: esophageal cancer; RELEVANT CLINICAL HISTORY: C15.9:Malignant neoplasm of esophagus, unspecified location TECHNIQUE: Following the administration of intravenous contrast, axial CT images were reconstructed from the volumetric data set, from the thoracic inlet through the adrenal glands. Coronal MIP images were also reconstructed. CONTRAST: iohexol (OMNIPAQUE) 350 MG/ML injection 1-171 mL; Route of Administration: Intravenous; Dose: 110 mL. iohexol (OMNIPAQUE) 300 MG/ML vial 50 mL; Route of Administration: Oral; Dose: 50 mL. FINDINGS: Lungs and Pleura: Patchy mild bilateral posteromedial lower lobe groundglass and small nodular opacities with mild subpleural atelectasis/scarring, most likely mild infectious/inflammatory changes such as mild aspiration. New left lower lobe posteromedial 0.8 cm pleural/subpleural nodular opacity could be infectious/inflammatory etiology but this is indeterminate (image 41). 2 adjacent new right lower lobe ill-defined 0.5 cm nodules are most likely infectious / inflammatory changes but are also nonspecific (image 43). No dense consolidation or pleural effusion. Tracheobronchial tree: Trachea and central bronchi are patent. Mediastinum/Alrfeda: Stable size of left mid/distal periesophageal/periaortic 1.8 x 1.4 cm lymph node, 1.7 x 1.4 cm previously (image 39). No hilar lymphadenopathy. Redemonstration of distal esophageal circumferential wall thickening which is thicker and more nodular posteriorly on the right compatible with patient's history of esophageal malignancy, with new/progressed extension of masslike wall thickening into the proximal stomach concerning for progressive malignancy (for example, images 41 through 55). Please see separate abdomen/pelvis CT report of this same date for further evaluation of the stomach. Axilla and Supraclavicular Region: No axillary or supraclavicular adenopathy. No visualized thyroid gland is unremarkable. Cardiovascular: The cardiac chambers and pericardium are within normal limits. The aorta and arch branch vessels, as well as the pulmonary arteries, are unremarkable. Upper Abdomen: Please see separate abdomen/pelvis CT report of this same date for evaluation of the visualized upper abdominal structures. Bones and Soft Tissue: No suspicious osseous lesion. Multilevel degenerative changes in the spine. IMPRESSION IMPRESSION: 1. Patchy new mild posteromedial bilateral lower lobe groundglass and nodular opacities with associated mild subpleural atelectasis/scarring, most likely infectious/inflammatory changes such as chronic aspiration. New 0.8 cm left lower lobe pleural/subpleural nodular opacity in this area could also be infectious/inflammatory etiology but is indeterminate. A few new right lower lobe ill-defined nodules are suggestive of infectious/inflammatory etiology but are nonspecific. Recommend follow-up chest CT to evaluate for stability and an interval of 2-3 months is suggested. 2. Stable size of left mid/distal periesophageal/periaortic indeterminate enlarged lymph node. Recommend attention to this area on follow-up exam. 3. Redemonstration of distal esophageal circumferential wall thickening asymmetric posteriorly and to the right compatible with patient's history of esophageal malignancy, but which shows apparent new/progressed extension into the proximal stomach wall. 4. Please see separate abdomen/pelvis CT report of this same date for evaluation of the visualized upper abdominal structures. Performing Organization Address City/State/Zipcode Phone Number RADIOLOGY in this encounter Visit Diagnoses Diagnosis Malignant neoplasm of esophagus, unspecified location
--- OUTSIDE RECORDS SUMMARY | 2018-06-01 04:46 | XMS RPT_ITS | Summary of Care ---
:1960 Author Organization [facility] Address [address] [place] [address] Phone Care Team Providers Name Role Phone Galo Ramsey Edward JIMENEZ Primary Care Provider Erika Doan RN Unavailable Unavailable Valentin Myers MD Unavailable Reason for Referral Pulmonary Rehabilitation (Routine) Status Reason Specialty Diagnoses / Referred By Referred To Procedures Contact Contact New Request Diagnoses Malignant neoplasm of lower third of esophagus Flores Gonzalez, Procedures PFT STANDARD PA-C [address] [place] [address] Pulmonary Rehabilitation (Routine) Status Reason Specialty Diagnoses / Referred By Referred To Procedures Contact Contact New Request Diagnoses Malignant neoplasm of lower third of esophagus Flores Gonzalez, Procedures PFT STANDARD PA-C [address] [place] [address] Reason for Visit Pulmonary Rehabilitation (Routine) Status Reason Specialty Diagnoses / Referred By Referred To Procedures Contact Contact New Request Diagnoses Malignant neoplasm of lower third of esophagus Flores Gonzalez, Procedures PFT STANDARD PA-C [address] [place] [address] Encounter Details Date Type Department Care Team Description 02/17/2018 Hospital Encounter Pulmonary Diagnostics Lab Fransisco Camacho, Arrived [address] DO [facility] [address] [place] [address] 5th [address] [place] [address] [phone] Allergies Active Allergy Reactions Severity Noted Date [...] Internal Medicine Callie Conklin MD Assessment [address] [facility] [address] [place] [address] 04/09/2018 Hospital Encounter Multispecialty Valentin Myers Malignant neoplasm MD [place] of lower third of [address] esophagus 2nd [place] [address] 04/09/2018 Procedure Pass Multispecialty Pending Results Name Priority Associated Diagnoses Date/Time PFT STANDARD Routine Malignant neoplasm of lower third of 02/17/2018 1:54 PM EST esophagus Health Maintenance Due Date Last Done Comments [...] who to contact with questions or concerns. PCR provided Kareem with education related to above. nutrition Lifestyle No Erika Doan, ALSHAE Note: Formatting of this note may be [...] will attempt to reach this goal daily. PCR provided Kareem with education related to above. Wt Readings from Last 3 Encounters: 01/20/18 121.4 kg (267 lb 9.6 oz) 12/09/17 126 kg (277 lb 12.8 oz) as of this encounter Procedures Procedure Name Priority Date/Time Associated Diagnosis Comments PFT STANDARD Routine 02/17/2018 1:54 PM Malignant neoplasm of EST lower third of esophagus HEMOGLOBIN STAT 02/17/2018 12:35 PM Results for this EST procedure are in the results section. in this encounter Results HEMOGLOBIN (02/17/2018 12:35 PM) HEMOGLOBIN (HGB) 13.6 13.4 - 16.8 g/dL LAB, [facility] Performing Organization Address City/State/Zipcode Phone Number LAB, [facility], [address] [place] [address] in this encounter Visit Diagnoses Diagnosis Malignant neoplasm of lower third of esophagus
--- OUTSIDE RECORDS SUMMARY | 2018-06-01 04:47 | XMS RPT_ITS ---
:1960 Author Organization OHIP Support Name Relationship Address Phone JAMEL GOMEZ Unavailable [address] + [place] [address] NORWESSCH Unavailable [address] + [place] [address] PIETRO, JAMEL Unavailable [address] + [place] [address] NORWESSCH Unavailable [address] + [place] [address] PIETRO, JAMEL Unavailable Unavailable + PIETRO, EDUARDO Unavailable Unavailable Unavailable PIETRO, JAMEL Unavailable Unavailable + PIETRO, EDUARDO Unavailable Unavailable Unavailable PIETRO, JAMEL Unavailable Unavailable + PIETRO, EDUARDO Unavailable Unavailable Unavailable PIETRO, JAMEL Unavailable Unavailable + PIETRO, EDUARDO Unavailable Unavailable Unavailable PIETRO, JAMEL Unavailable Unavailable + PIETRO, EDUARDO Unavailable Unavailable Unavailable PIETRO, JAMEL Unavailable Unavailable + PIETRO, EDUARDO Unavailable Unavailable Unavailable PIETRO, JAMEL Unavailable Unavailable + PIETRO, EDUARDO Unavailable Unavailable Unavailable PIETRO, JAMEL Unavailable Unavailable + PIETRO, EDUARDO Unavailable Unavailable Unavailable PIETRO, JAMEL Unavailable Unavailable + PIETRO, EDUARDO Unavailable Unavailable Unavailable PIETRO, JAMEL Unavailable [address] + [place] [address] NORWESSCH Unavailable [address] + [place] [address] PIETRO, JAMEL Unavailable [address] + [facility] [place] [address] NORWESSCH Unavailable [address] + [place] [address] PIETRO, JAMEL Unavailable [address] + [place] [address] NORWESSCH Unavailable [address] + [place] [address] PIETRO, JAMEL Unavailable [address] + [place] [address] NORWESSCH Unavailable [address] + [place] [address] PIETRO, JAMEL Unavailable Unavailable + PIETRO, EDUARDO Unavailable Unavailable Unavailable PIETRO, JAMEL Unavailable [address] + [place] [address] NORWESSCH Unavailable [address] + [place] [address] PIETRO, JAMEL Unavailable [address] + [place] [address] NORWESSCH Unavailable [address] + [place] [address] PIETRO, JAMEL Unavailable [address] + [place] [address] NORWESSCH Unavailable [address] + [place] [address] PIETRO, JAMEL Unavailable [address] + [place] [address] NORWESSCH Unavailable [address] + [place] [address] PIETRO, JAMEL Unavailable [address] + [place] [address] NORWESSCH Unavailable [address] + [place] [address] PIETRO, JAMEL Unavailable [address] + [place] [address] NORWESSCH Unavailable [address] + [place] [address] PIETRO, JAMEL Unavailable [address] + [place] [address] NORWESSCH Unavailable [address] + [place] [address] PIETRO, JAMEL Unavailable [address] + [place] [address] NORWESSCH Unavailable [address] + [place] [address] PIETRO, JAMEL Unavailable [address] + [place] [address] NORWESSCH Unavailable [address] + [place] [address] PIETRO, JAMEL Unavailable [address] + [place] [address] NORWESSCH Unavailable [address] + [place] [address] PIETRO, JAMEL Unavailable [address] + [place] [address] NORWESSCH Unavailable [address] + [place] [address] PIETRO, JAMEL Unavailable [address] + [place] [address] NORWESSCH Unavailable [address] + [place] [address] PIETRO, JAMEL Unavailable Unavailable + PIETRO, EDUARDO Unavailable Unavailable Unavailable PIETRO, JAMEL Unavailable [address] + [place] [address] NORWESSCH Unavailable [address] + [place] [address] PIETRO, JAMEL Unavailable [address] + [place] [address] NORWESSCH Unavailable [address] + [place] [address] PIETRO, JAMEL Unavailable [address] + [place] [address] NORWESSCH Unavailable [address] + [place] [address] PIETRO, JAMEL Unavailable [address] + [place] [address] NORWESSCH Unavailable [address] + [place] [address] PIETRO, JAMEL Unavailable [address] + [place] [address] NORWESSCH Unavailable [address] + [place] [address] PIETRO, JAMEL Unavailable [address] + [place] [address] NORWESSCH Unavailable [address] + [place] [address] PIETRO, JAMEL Unavailable [address] + [place] [address] NORWESSCH Unavailable [address] + [place] [address] PIETRO, JAMEL Unavailable [address] + [place] [address] NORWESSCH Unavailable [address] + [place] [address] PIETRO, JAMEL Unavailable [address] + [place] [address] NORWESSCH Unavailable [address] + [place] [address] PIETRO, JAMEL Unavailable [address] + [place] [address] NORWESSCH Unavailable [address] + [place] [address] PIETRO, JAMEL Unavailable [address] + [place] [address] NORWESSCH Unavailable [address] + [place] [address] PIETRO, JAMEL Unavailable [address] + [place] [address] NORWESSCH Unavailable [address] + [place] [address] PIETRO, JAMEL Unavailable Unavailable + EDUARDO GOMEZ Unavailable Unavailable Unavailable PIETRO, JAMEL Unavailable [address] + [place] [address] NORWESSCH Unavailable [address] + [place] [address] PIETRO, JAMEL Unavailable [address] + [place] [address] NORWESSCH Unavailable [address] + [place] [address] PIETRO, JAMEL Unavailable Unavailable + EDUARDO GOMEZ Unavailable Unavailable Unavailable PIETRO, JAMEL Unavailable Unavailable + EDUARDO GOMEZ Unavailable Unavailable Unavailable PIETRO, JAMEL Unavailable [address] + [place] [address] NORWESSCH Unavailable [address] + [place] [address] NORWESSCH Unavailable [address] + [place] [address] NORWESSCH Unavailable [address] + [place] [address] NORWESSCH Unavailable [address] + [place] [address] NORWESSCH Unavailable [address] + [place] [address] NORWESSCH Unavailable [address] + [place] [address] Care Team Providers Name Role Phone MCKENNA OSHEA Attending Unavailable ROSLYN POWELL Referring Unavailable BROWN, JD R Primary Care Unavailable GLOINORENIRIS Attending Unavailable GLOIN, IRIS Referring Unavailable GLOIN, IRIS Attending Unavailable GLOIN, IRIS Referring Unavailable GLOIN, IRIS Attending Unavailable GLOIN, IRIS Referring Unavailable OSHEAMCKENNA CARTER Attending Unavailable BROWN, JD R Referring Unavailable BROWN, JD R Primary Care Unavailable VIRGIE RUDD Attending Unavailable BLAIRE, VIRGIE L Referring Unavailable BROWN, JD R Primary Care Unavailable VIRGIE RUDD Attending Unavailable BLAIRE, VIRGIE L Referring Unavailable BROWN, JD R Primary Care Unavailable KIARA PENDLETON Attending Unavailable CLINTON, KELI Referring Unavailable BROWN, JD R Primary Care Unavailable KIARA PENDLETON Attending Unavailable CLINTON, KELI Referring Unavailable BROWN, JD R Primary Care Unavailable MCKENNA OSHEA Attending Unavailable BROWN, JD R Referring Unavailable BROWN, JD R Primary Care Unavailable KELLEN SHERWOOD Attending Unavailable MCKENNA OSHEA Referring Unavailable BROWN, JD R Primary Care Unavailable JOANN LOCKHART Attending Unavailable GLOIN, IRIS Referring Unavailable BROWN, JD R Primary Care Unavailable LOCKHARTJOANN COLON Attending Unavailable LOCKHART JOANN Referring Unavailable BROWN, JD R Primary Care Unavailable LOCKHARTJOANN COLON Attending Unavailable LOCKHART, JOANN Referring Unavailable BROWN, JD R Primary Care Unavailable Brown, Jd Attending Unavailable Brown, Jd Referring Unavailable Brown, Jd Primary Care Unavailable Brown, Jd Attending Unavailable Brown, Jd Referring Unavailable Brown, Jd Primary Care Unavailable Lui Chung PA-C Attending Unavailable Lui Chung PA-C Referring Unavailable Brown, Jd Primary Care Unavailable Brown, Jd Attending Unavailable Brown, Jd Referring Unavailable Brown, Jd Primary Care Unavailable Cebul Mckenna Attending Unavailable Brown, Jd Referring Unavailable Brown, Jd Primary Care Unavailable Cebul, Mckenna Attending Unavailable Cebul, Mckenna Referring Unavailable Brown, Jd Primary Care Unavailable Cebul, Mckenna Attending Unavailable Cebul, Mckenna Referring Unavailable Brown, Jd Primary Care Unavailable Cebul, Mckenna Consulting Unavailable IsckarusAj Attending Unavailable Brown, Jd Referring Unavailable Brown, Jd Primary Care Unavailable IsckarusAj Attending Unavailable Brown, Jd Referring Unavailable Brown, Jd Primary Care Unavailable Isckarus, Mansour Consulting Unavailable Isckarus, Mansour Attending Unavailable Isckarus, Mansour Referring Unavailable Brown, Jd Primary Care Unavailable Isckarus, Mansour Attending Unavailable Brown, Jd Primary Care Unavailable Roslyn Powell Attending Unavailable Brown, Jd Referring Unavailable Brown, Jd Primary Care Unavailable Isckarus, [place] Consulting Unavailable Cebul, Mckenna Attending Unavailable Brown, Jd Referring Unavailable Cebul, Mckenna Attending Unavailable Cebul, Mckenna Referring Unavailable Brown, Jd Primary Care Unavailable Zahira Mera Attending Unavailable Brown, Jd Referring Unavailable Brown, Jd Primary Care Unavailable Isckarus, [place] Consulting Unavailable Cebul, Mckenna Attending Unavailable Cebul, Mckenna Referring Unavailable Brown, Jd Primary Care Unavailable Sanjay, Edin Attending Unavailable Cebul, Mckenna Referring Unavailable Brown, Jd Primary Care Unavailable Cebul, Mckenna Consulting Unavailable Isckarus, Mansour Attending Unavailable Brown, Jd Primary Care Unavailable Roslyn Powell Attending Unavailable Roslyn Powell Referring Unavailable Cebul, Mckenna Attending Unavailable Cebul, Mckenna Referring Unavailable Brown, Jd Primary Care Unavailable Cebul, Mckenna Consulting Unavailable Isckarus, Mansour Attending Unavailable Brown, Jd Referring Unavailable Brown, Jd Primary Care Unavailable Isckarus, [place] Consulting Unavailable Bob, Roslyn Attending Unavailable Brown, Jd Referring Unavailable Brown, Jd Primary Care Unavailable Isckarus, [place] Consulting Unavailable Roslyn Powell Attending Unavailable Roslyn Powell Referring Unavailable Isckarus, Aj Attending Unavailable Isckarus, Kathiour Attending Unavailable Brown, Jd Referring Unavailable Brown, Jd Primary Care Unavailable Isckarus, [place] Consulting Unavailable Roslyn Powell Attending Unavailable Brown, Jd Referring Unavailable Brown, Jd Primary Care Unavailable Isckarus, [place] Consulting Unavailable Edin Grace Attending Unavailable Cebul, Mckenna Referring Unavailable Isckarus, Mansour Attending Unavailable Brown, Jd Referring Unavailable Brown, Jd Primary Care Unavailable Isckarus, [place] Consulting Unavailable Roslyn Powell Attending Unavailable Brown, Jd Referring Unavailable Brown, Jd Primary Care Unavailable Isckarus, [place] Consulting Unavailable Carson Randolph Attending Unavailable Brown, Jd Referring Unavailable Brown, Jd Primary Care Unavailable Isckarus, [place] Consulting Unavailable BobRoslyn keene Attending Unavailable Brown, Jd Referring Unavailable Brown, Jd Primary Care Unavailable Isckarus, [place] Consulting Unavailable Isckarus, Mansour Attending Unavailable Brown, Jd Primary Care Unavailable Isckarus, Mansour Attending Unavailable Brown, Jd Referring Unavailable Brown, Jd Primary Care Unavailable Isckarus, [place] Consulting Unavailable Bob, Roslyn Attending Unavailable Brown, Jd Referring Unavailable Brown, Jd Primary Care Unavailable Isckarus, [place] Consulting Unavailable Samaria, Zahira Attending Unavailable Brown, Jd Referring Unavailable Brown, Jd Primary Care Unavailable Isckarus, Mans[place] Consulting Unavailable Samaria, Zahira Attending Unavailable Brown, Jd Referring Unavailable Brown, Jd Primary Care Unavailable Isckarus, Mansour Consulting Unavailable Isckarus, Mansour Attending Unavailable Brown, Jd Primary Care Unavailable Bob, Roslyn Attending Unavailable Brown, Jd Referring Unavailable Brown, Jd Primary Care Unavailable Isckarus, Mansour Consulting Unavailable PROBLEMS PROBLEMS DATE TYPE CONDITION / CODE ATTENDING STATUS SOURCE Unknown 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, 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 / [place] Community C16.0(ICD-10) Hospital Repository Admitting Encounter for other JOANN LOCKHART Active [place] [address] diagnosis preprocedural University examination / [facility] Z01.818(ICD-10) Center Repository Admitting Anxiety disorder, JOANN LOCKHART [place] [address] diagnosis unspecified / University F41.9(ICD-10) [facility] Repository Admitting Gastritis, JOANN LOCKHART [place] [address] diagnosis unspecified, without [facility] bleeding / [facility] K29.70(ICD-[facility]) Center Repository Admitting Essential (primary) JOANN LOCKHART [place] [address] diagnosis hypertension / University I10(ICD-10) [facility] Repository Admitting Obstructive sleep JOANN LOCKHART [place] [address] diagnosis apnea (adult) [facility] G47.33([facility]-10) Center Repository Admitting Malignant neoplasm of JOANN LOCKHART Active [place] [address] diagnosis lower third of [facility] esophagus [facility] C15.5(ICD-10) Center Repository Admitting Malignant neoplasm of BLAIRE VIRGIE Active [place] [address] diagnosis esophagus, unspecified L University / C15.9(ICD-10) [facility] Repository Unknown D50.9 - Iron Isckarus, Active [place] [facility] deficiency [facility] unspecified / Hospital D50.9(ICD-10) Repository Unknown C15.9 - Malignant Samaria, Active [place] neoplasm of esophagus, [place] Community unspecified / Hospital C15.9(ICD-10) Repository Unknown D64.9 - Anemia, Samaria, Active [place] unspecified / [facility] Community D64.9(ICD-10) Hospital Repository Unknown K21.0 - Samaria, Active [place] 8 Gastro-esophageal Zahira [facility] reflux disease with Hospital esophagitis / Repository K21.0(ICD-10) Unknown Z79.899 - Other long Samaria, Active [place] [facility] term (current) drug [facility] Community therapy / Hospital Z79.899(ICD-10) Repository Admitting Esophagus Cancer / DORIE, [place] [address] diagnosis [id number]() [facility] Repository Unknown R11.2 - Nausea with Roslyn Powell Active [place] 8 vomiting, unspecified Community / R11.2(ICD-10) Hospital Repository Admitting New Patient / DORIE, Active [place] [address] diagnosis [id number]() [facility] Repository Admitting Other / 0() DORIE, [place] [address] diagnosis [facility] Repository Unknown G89.18 - Other acute CebuMckenna freed Active [place] [facility] postprocedural pain / Community G89.18(ICD-10) Hospital Repository Unknown Z01.818 - Encounter Sanjay, [place] Active [place] [facility] for other Community preprocedural Hospital examination / Repository Z01.818(ICD-10) Unknown C15.5 - Malignant CebuMckenna freed Active [place] 8 neoplasm of lower Community third of esophagus / Hospital C15.5(ICD-10) Repository Unknown Z23 - Encounter for Isckarus, Active [place] [facility] immunization / [place] Community Z23(ICD-10) Hospital Repository Unknown R94.31 - Abnormal SanjayHermelindo segundoril Active [place] [facility] electrocardiogram Community [ECG] [EKG] / Hospital R94.31(ICD-10) Repository Unknown I45.10 - Unspecified Sanjay, Edin Active [place] 8 right bundle-branch Community block / I45.10(ICD-10) Hospital Repository Unknown R13.10 - Dysphagia, Cebul, Mckenna Active [place] [facility] unspecified / Community R13.10(ICD-10) Hospital Repository Unknown 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 CLINICAL INDICATIONS: Preoperative evaluation, port placement. 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 The tip terminates near the confluence of the right axillary and right jugular veins. Chest Wall: Degenerative changes in the thoracic spine Osmin: Normal Mediastinum: Normal Pleural Spaces: No pleural effusion. No pneumothorax. Lungs: Clear, without mass, interstitial disease, or consolidation. Cardiac Silhouette: Normal, without overall or specific chamber enlargement, or abnormal calcification Thoracic Aorta: Normal Pulmonary Vessels: Normal, without PVH IMPRESSION: No acute cardiopulmonary disease Observed: 03/11/2018 Status: F Source: [facility] TYPE AND CROSS - 3:35 PM [facility] PRE-OP [facility] REPOSITORY ABO/RH(D): A NEGATIVE ANTIBODY SCREEN: NEGATIVE Performed By: #### XMPO #### [facility] [address] [place] [id number] [facility] [address] [place] [address] CBC WITH DIFF Collected: 03/11/2018 Status: F Source: [facility] 3:08 PM [facility] REPOSITORY TYPE CODE TESTS RESULT OUT OF REFERENCE UNITS RANGE LAB WBC 3.73-10.10 K/uL WBC Count 8.78 LAB RBC 4.38-5.83 M/uL RBC Count 4.60 LAB HGB 13.4-16.8 g/dL Hemoglobin 13.2 Low LAB HCT 39.6-48.8 % Hematocrit 40.3 LAB MCV 79.0-94.5 fL Mean Cell 87.6 Volume LAB MCH 26.1-33.3 pg Mean Cell 28.7 Hgb LAB MCHC 31.9-36.5 g/dL Mean Cell 32.8 Hgb Conc LAB RDW 10.9-14.3 % RBC 18.3 High Distribution LAB PLT 146-337 K/uL Platelet 239 Count LAB MPV 8.7-12.3 fL Mean 9.1 Platelet Volume LAB NRBC 0.0-0.2 /100 WBC NUCLEATED 0.0 RBC LAB DTYPE Electronic DIFFERENTIAL TYPE Differential LAB IGRE % IMMATURE 0.3 GRANS % LAB SEGS % NEUTROPHIL 80.1 SEGMENTED LAB LYM % LYMPHOCYTE 4.0 % LAB MON % MONOCYTE % 12.4 LAB EOS % *EOSINOPHIL 2.7 % LAB BASO % BASOPHIL % 0.5 LAB IGABS 0.00-0.07 K/uL IMMATURE <0.04 GRANS ABSOLUTE LAB SBANS 1.57-6.19 K/uL SEGS + 7.03 High Bands,Absolute LAB ALYM 0.83-3.57 K/uL Abs Lymph 0.35 Low LAB AMONO 0.24-0.93 K/uL Abs [place] 1.09 High LAB AEOS 0.00-0.48 K/uL Abs Eos 0.24 LAB ABASO 0.00-0.09 K/uL Abs Baso 0.04 Performed By: #### CBCDFM, [facility] #### [facility] [address] [place], [place] [address] #### PTCC, PTTMS #### [facility] [address] [place] [id number] [place] [address] [place] [address] PT/INR - TOBIAS URRUTIA Collected: 03/11/2018 Status: F Source: [facility] LAB 3:08 PM [facility] REPOSITORY TYPE CODE TESTS RESULT OUT OF RANGE REFERENCE UNITS LAB PT 11.9-14.2 sec PT 12.8 LAB INR 0.9-1.1 INR 1.0 Performed By: #### CBCDFM, CHM6C #### [facility] [address] [place] [address] #### PTCC, PTTMS #### [facility] [address] [place] [address] [address] [place] [address] CHEM 6 - [facility] Collected: 03/11/2018 Status: F Source: [facility] LAB 3:08 PM [facility] REPOSITORY TYPE CODE TESTS RESULT OUT OF REFERENCE UNITS RANGE LAB BUN 7-22 mg/dL BUN 16 LAB NA 133-143 mmol/L Sodium 138 LAB K 3.5-5.0 mmol/L Potassium 4.2 LAB CL 98-108 mmol/L Chloride 101 LAB CO2 22-30 mmol/L Carbon Dioxide 28 LAB CREA 0.70-1.30 mg/dL Creatinine 0.93 LAB GAP 7-17 mmol/L Anion Gap 13 LAB GFR >60 mL/min/1.73 sqM Est GFR,non >60 Citizen [place] LAB GFRA >60 mL/min/1.73 sqM Est GFR, >60 Performed By: #### CBCDFM, CHM6C #### [facility] [address] [place] [address] #### PTCC, PTTMS #### [facility] [address] [place] [address] [place] [address] PTT WITH MIXING Collected: 03/11/2018 Status: F Source: [facility] STUDY 3:08 PM [facility] REPOSITORY TYPE CODE TESTS RESULT OUT OF RANGE REFERENCE UNITS LAB PTT 24.0-34.3 sec PTT 28.4 LAB PTT1T1 sec PTT Mix PTT is w/BRANCH BILLING PAYROLL CLERK normal, PTT mixing study not done. Performed By: #### CBCDFM, CHM6C #### [facility], [place] [address] [place], [place] [address] #### PTCC, PTTMS #### [facility] [address] [place] [address] [facility] [address] [place], [place] [address] CT ABDOMEN WITH Observed: 02/18/2018 Status: F Source: [facility] 7:54 AM [facility] REPOSITORY EXAM: CT ABDOMEN WITH CONTRAST, 02/17/2018 17:40 PM COMPARISON: PET/CT scan on November 24, 2017. CT of abdomen and pelvis on November 18, 2017 CLINICAL INDICATIONS: esophageal cancer; C15.9:Malignant neoplasm of esophagus, unspecified location TECHNIQUE: Helical axial images of the abdomen were performed from the lung bases through the iliac crests following the administration of oral and intravenous contrast. Coronal 2 mm reconstructions were also made. CONTRAST: iohexol (OMNIPAQUE) 350 MG/ML injection 1-171 mL; Route of Administration: Intravenous; Dose: 110 mL. iohexol (OMNIPAQUE) 300 MG/ML vial 50 mL; Route of Administration: Oral; Dose: 50 mL. FINDINGS: Lung Bases: Please see dedicated chest CT scan of the same date for full description of the intra-thoracic contents. ABDOMEN Liver: Liver is normal in size and CT density. A subcentimeter hypodensity in the posterior right lobe on image 41, stable. Biliary/Gallbladder: The gallbladder is partially distended with a tiny stone. The biliary tree is nondilated. Spleen: Spleen is normal in size and CT density. Pancreas: Pancreas is normal. There is no evidence of pancreatic mass or peripancreatic fluid. Kidneys: Kidneys are normal in size. There are no stones or hydronephrosis. Adrenals: Adrenal glands are unremarkable. Retroperitoneal/Lymph Nodes/Vasculature: Gastrohepatic prominent lymph node measuring 1.1 cm in short axis on image 33, previously 0.9 cm. Gastrointestinal/Mesentery: Circumferential thickening of the distal esophagus near the GE junction. Low-density nodule along the right lateral distal esophageal wall on image 19 measuring 1.4 x 1.6 cm, previously 1.3 x 1.3 cm. Distal paraesophageal/para-aortic lymph node, measuring 1.4 x 1.8 cm on image 9, previously 1.4 x 1.7 cm. The area of hypermetabolic activity in the GE junction on image 22 became somewhat increased in density. There is a somewhat elongated area of low-density along the medial gastric fundal wall on image 30, measuring 3.5 x 6.9 cm, possibly previously measured 1.5 x 3.8 cm. Partially visualized normal appendix. Unremarkable visualized there contrast filled small bowel loops. Unremarkable colon. No ascites. Bony Structures: Visualized bony structures are consistent with the patient's age. Degenerative change of spines. No suspicious osseous lesion. IMPRESSION: 1. Circumferential thickening of the distal esophagus near the GE junction and low-density nodule in the distal esophageal wall with a stable distal paraesophageal/ para-aortic lymph node. An elongated area of low-density along the medial gastric fundal wall which is retrospectively markedly increased in size since 2017. Finding compatible with known distal esophageal cancer with marked interval further spreading into the gastric fundus. Recommend endoscopic evaluation. 2. No obvious metastatic disease in the liver or retroperitoneal lymphadenopathy in the abdomen. CHEST WITH Observed: 02/17/2018 Status: F Source: [place] [facility] 9:02 PM [facility] REPOSITORY EXAM: CT CHEST WITH CONTRAST, 02/17/2018 17:40 [...] tree: Trachea and central bronchi are patent. Mediastinum/Osmin: Stable size of left mid/distal periesophageal/periaortic 1.8 [...] lesion. Multilevel degenerative changes in the spine. IMPRESSION: 1. Patchy new mild posteromedial bilateral [...] node. Recommend attention to this area on follow- up exam. 3. Redemonstration of distal esophageal circumferential wall thickening asymmetric posteriorly and to the right compatible with patient's history of esophageal malignancy, but which shows apparent new/progressed extension into the proximal stomach wall. 4. Please see separate abdomen/pelvis CT report of this same date for evaluation of the visualized upper abdominal structures. *CRE/GFR POC DEVICE Collected: 02/17/2018 Status: F Source: [facility] 4:43 PM [facility] REPOSITORY TYPE CODE TESTS RESULT OUT OF REFERENCE UNITS RANGE LAB CREPC 0.70-1.30 mg/dL Creatinine (poc 1.00 device) LAB GFRPC >60 mL/min/1.7 3 sq m est GFR, (poc device) >60 LAB PCSTYP *POC SAMPLE TYPE Venous HEMOGLOBIN Collected: 02/17/2018 Status: F Source: [facility] 12:35 PM [facility] REPOSITORY TYPE CODE TESTS RESULT OUT OF REFERENCE UNITS RANGE LAB HGB 13.4-16.8 g/dL Hemoglobin 13.6 Performed By: #### HGB #### [facility] [address] [place] [id number] [facility] [address] [place] [address] ECHOCARDIOGRAM TREADMILL Observed: 02/17/2018 Status: F Source: [facility] STRESS TEST 11:44 AM [facility] REPOSITORY Overall this is a negative treadmill echocardiogram for ischemia. Baseline ECG is normal sinus rhythm with RBBB. The patient performed 9:30 min:sec on Gera protocol to 85% APHR reaching 10.9 METs, stopping due to fatigue. This represents average exercise capacity by age/gender. There were no diagnostic ECG changes for ischemia during stress. There were no significant arrhythmias noted. Baseline LV function/wall motion is normal with appropriate augmentation to >70% without any stress induced wall motion abnormalities. 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 From 12/16/17 - 01/19/18 he received neoadjuvant concurrent chemoradiation. History of Present Illness: 11/05/2017: Patient was referred to general surgery due to progressive dysphasia. 11/18/2017: EGD was performed which demonstrated in the very distal esophagus just proximal to the GE junction there appeared to be evidence of submucosal mass with irregularity at the GE junction with evidence of ulceration and reduce bleeding coffee- ground material, this mass seemed to involve at least 50% of the circumference of the GE junction. The GE junction was approximately at 41-42 cm upon the scope entering the stomach immediately there were coffee-ground mucus staining and as the scope was advanced down to the antral area there was subcutaneous submucosal mass approximately 10 cm from the pylorus identified. Biopsies were obtained of the antrum and also the GE junction mass. Biopsy obtained of the esophagus and cardia were consistent with invasive mucinous adenocarcinoma with focal signet ring features. 11/18/2017: CT chest abdomen pelvis was performed which demonstrated evidence for a 1.5 x 1.4 x 2.8 cm nodular density in the right lateral wall of the distal esophagus at the level of the GE junction with evidence of circumferential wall thickening of the distal esophagus. There is multiple or multiple small lymph nodes within the mediastinum which are normal size and morphology most compatible with reactive hyperplasia. There is no evidence of metastatic disease. 11/20/2017: Patient was evaluated by medical oncology who recommended surgical consultation for consideration of treatment of esophageal cancer and PET/CT to complete staging. Also iron profile and iron administration will be completed due to anemia. 11/24/2017: PET scan was completed which demonstrated increase uptake defined in the distal esophagus for filling quantitive criteria for viable neoplasm. This lesion measures about 5 x 4 cm and has an SUV of 11. There is increase concentration involving a paraesophageal/subcarinal lymph node on the left of midline with an SUV of 3.3 and a measured size of 1.3 cm. There was no evidence of metastatic disease identified. From 12/16/17 - 01/19/18: received concurrent chemoradiation consisting of 4500 cGy in 25 fractions to the distal esophageal tumor with margin, all questionable/involved LNs, and elective LN coverage including celiac and gastrohepatic. A simulataneous integrated boost was used to concurrently treat the gross disease involving the distal esophageal tumor and questionable/involved LNs (para-esophageal borderline and small marlin-gastric) as demonstrated on the PET scan consisting of 5000 cGy of 6 MV photons in 25 fractions. 01/20/18: Patient was evaluated by thoracic surgery at [facility] and pre-operative testing and imaging was ordered. Radiation Treatment History: 1) From 12/16/17 - 01/19/18: received concurrent chemoradiation consisting of 4500 cGy in 25 fractions to the distal esophageal tumor with margin, all questionable/involved LNs, and elective LN coverage including celiac and gastrohepatic. A simulataneous integrated boost was used to concurrently treat the gross disease involving the distal esophageal tumor and questionable/involved LNs (para-esophageal borderline and small marlin-gastric) as demonstrated on the PET scan consisting of 5000 cGy of 6 MV photons in 25 fractions. Interval History: Patient returns for routine follow-up 1 month after completing neoadjuvant chemoradiation therapy. He reports doing well overall. He believes that his swallowing has been stable and he can swallow soft foods and liquids without difficulty and if he chews up meats or breads well is able to swallow them without much difficulty. He denies having odynophagia or regurgitation of swallowed content. He has a very mild continuous nonproductive cough. He denies having any shortness of breath or chest pain. He denies having any acid reflux, he continues to take omeprazole daily. He reports a stable appetite and weight. Energy level is returning although still not 100%, he is working from home and stays active in his daily life. He completes all activities of daily living without any difficulty. He denies having any other problems or concerns at this time. I have reviewed the medical, surgical, and other pertinent history in details and have updated medication and allergy information in the electronic medical record. Review of Systems: A 12-point review of systems was completed and was negative except for what is noted in the HPI/Interval History and by the nurse. Height/Weight/BMI: Height: 6 ft Weight: 268.7 lbs (weight at start of SHEET COMBINING OPERATOR: 276.2 lbs, end of SHEET COMBINING OPERATOR: 266 lbs) Vital Signs Temperature 98.3 F 02/12/18 09:16 Temperature Source Oral 02/12/18 09:16 Pulse Rate 75 02/12/18 09:16 Respiratory Rate 16 02/12/18 09:16 Physical Exam: ECO KARNOFSKY SCORE: 90% CONSTITUTIONAL: Well-developed, overweight, and in no apparent distress. HEENT: Mucous membranes moist. No evidence of thrush or lesions within the visualized oropharynx or oral cavity. No trismus. Pupils are equal, round, and reactive to light and accommodation. Extraocular movements are intact. Sclerae are anicteric. NECK: Supple,with no thyromegaly, and non-tender. Trachea midline. No cervical or supraclavicular adenopathy noted. CARDIAC: Regular rate and rhythm. Normal S1, S2. No murmurs, rubs, or gallops. PULMONARY/CHEST: Lungs are clear to auscultation and percussion bilaterally. No wheezes, rhonchi, or crackles noted. No increased work of breathing. ABDOMINAL: Abdomen soft, non-tender, non-distended. No hepatomegaly. Normoactive bowel sounds in all four quadrants. No guarding, rebound. BACK: Straight and aligned. No CVA tenderness. Axial skeleton non-tender to percussion. EXTREMITIES: Full range of motion in all four extremities, with normal strength equally and symmetrically. No evidence of edema. No clubbing. NEUROLOGICAL EXAM: Alert and oriented x 3. Cranial nerves II through XII are grossly intact. No focal neurological deficit. Speech is fluent. There is no upper or lower extremity sensory deficit or motor deficit. Muscle strength is 5/5 in all muscle groups. Gait and posture are steady. PSYCHIATRIC: Appropriate mood and affect for the clinical situation. 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 From 12/16/17 - 01/19/18 he received neoadjuvant concurrent chemoradiation. Patient appears to have healed well from radiation related toxicities and has some residual tiredness and persistent mild dysphasia but otherwise is doing very well. I reviewed expected timing and management of radiation related toxicities. He was evaluated by [facility] thoracic surgery and will have preoperative testing and imaging completed on 02/17/2018. Unfortunately his insurance denied the PET scan but he will have a CT chest abdomen and pelvis instead. Following preoperative testing he will have surgery scheduled at [facility]. I briefly discussed surveillance strategies following a successful esophagectomy but plan to further discuss this when he returns in about 2 months. He will plan to see medical oncology next week following the restaging scans. Roslyn Powell DO, Software Support Technician, Department of Radiation Oncology [facility] 02/12/18 1020 <Electronically signed by Roslyn Powell DO> Date Roslyn Powell DO CC: Aj Andrews MD Signed ONCOLOGY VISIT REPORT Observed: 01/27/2018 Status: F Source: [place] 1:30 PM [facility] REPOSITORY [facility] [address] [place] [address]. [place] [address] OFFICE VISIT Date of Service: 01/27/18 1246 MR#: [id number] Acct: [id number] Name: EDUARDO GOMEZ Rep #: [id number] : 1960 From: Zahira CÁRDENAS Age/Sex: 57/M Location: [facility] Status: Signed Subjective - Date of Service Date of Service:: 01/27/18 - Chief Complaint Follow up-esophageal ca - History of Present Illness Patient is a 57-year-old male who presented with progressive painless dysphagia and fatigue due to anemia. No weight loss, no nausea or vomiting, no melena. EGD November 18, 2017 showed a malignant appearing tumor at the e.g. junction involving the very distal esophagus and cardia. Evidence of recent coffee ground material consistent with ulceration and low-grade bleeding. Biopsie MICROSCOPIC DIAGNOSIS A. Antral biopsy: Mild gastritis. B. Antral mass, biopsy: Mild gastritis. Negative for malignancy. C. 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 Chronic active gastritis. A few lymphoid aggregate formations, favor benign. D. 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 CT scan chest November 18, 2017: IMPRESSION: 1.5 cm x 1.4 cm x 2.8 cm nodular density in the right lateral wall of the distal esophagus at the level of the gastroesophageal junction with the evidence of circumferential wall thickening of the distal esophagus. CT scan abdomen November 18, 2017: IMPRESSION: Nodules seen along the right lateral wall of the distal esophagus with circumferential wall thickening of the gastroesophageal junction as described. Punctate calcification in the lower pole calyx of the left kidney. PET/CT November 24, 2017: MPRESSION: 1. ABNORMAL EXAMINATION INDICATIVE OF MALIGNANT VIABLE NEOPLASM. 2. Increased radiopharmaceutical concentration defined in the distal esophagus fulfills quantitative criteria for viable neoplasm. 3. The subcarinal mediastinal hypermetabolic focus fulfills borderline quantitative criteria for viable neoplasm. (Nicolasa reyes al, Journal of Clinical Oncology 16:2142, 1998). 4. Homogenous increased glucose metabolism manifest in the visualized appendicular-axial skeletal structures, in the absence of chemotherapeutic intervention and marrow stimulation, is consistent with the pattern associated with hyperplasia of the hematopoietic marrow. (Moiz, AJR 180:669, 2003). 5. No other quantitatively significant hypermetabolic abnormalities are noted. There is no definitive scintigraphic evidence of distant metastatic disease. Treatment: Neoadjuvant concomitant chemoradiation (weekly carbotaxol) 12/16/17- 01/19/18. - Interval History /The patient is presenting to clinic accompanied by spouse for 1 week follow up. Since his visit with me last week, he was evaluated by Dr. Oshea on 01/20/18. Scheduled for PET/CT, pre op testing and follow up with Dr. sOhea on 02/17/18 to assign a date for surgery as appropriate. PO fluid intake likely inadequate. Appetite fair. Nausea continues, describes as mild, intermittent and improving. Requests refill of PPI. - Past Medical/Social History Past Medical History Cancer: Esophageal cancer Social History Social History: No changes Smoking Status Never smoker Review of Systems Constitutional:: Reports: Fatigue. Denies: Fever, Sweats, Weight loss, Appetite change, Chills Cardiovascular:: Denies: Chest pain, Palpitations, Dyspnea on exertion, Orthopnea, PND, Shortness of breath Respiratory: Denies: Cough, Hemoptysis, Shortness of Breath, Wheezing Gastrointestinal:: Reports: Nausea. Denies: Abdominal pain, Vomiting, Diarrhea, Constipation, Hematochezia Genitourinary: Denies: Dysuria, Hematuria, 15, Flank pain Musculoskeletal:: Denies: Back pain, Myalgia, Arthralgia Skin: Denies: Rash, Skin Changes, Wounds Neurological:: Denies: Headache, Dizziness, Numbness, Tingling, Visual changes, Tinnitus, Hearing loss Psychiatric: Denies: Anxiety, Depression, Homicidal Ideations, Suicidal Ideations Vital Signs Height 6 ft Weight: 266 lb Weight in Pounds 266.0 lbs BMI 37.5 Pulse Ox 98 - Physical Exam General: Alert, Oriented x3, No apparent distress HEENT: Atraumatic, PERRLA, EOMI, Normocephalic Oropharynx:: Negative for: Dry mucosa, Ulcerated lesions Neck:: Supple, Trachea midline. Negative for: JVD, bilateral Cardiac:: Regular rate, Regular rhythm, Normal S1, Normal S2. Negative for: Murmur Lungs: Clear to auscultation, Excusion symmetrical. Negative for: Rhonchi, Wheezes Abdomen:: Bowel sounds x 4, Soft, Non-tender, Non-distended. Negative for: Hepatosplenomegaly Extremities:: Negative for: Cyanosis, Edema Neurological: Neuro grossly intact Skin:: - - Port right upper chest accessed with gripper covered with DSD. Negative for: Lesions, Rash, Petechiae, Ecchymosis Psychiatric:: Appropriate affect, Euthymic Lymphatics:: Negative for: Cervical lymphadenopathy, Supraclavicular lymphadenopathy, Axillary lymphadenopathy Assessment and Plan 57-year-old male with GE junction adenocarcinoma. Patient presented with painless dysphagia, symptomatic anemia (iron deficiency and cancer) He has a good performance status. Recommendation: #1 Started multimodality approach December 16, 2017 that include preop concomitant chemoradiation followed by definitive surgery with an intent to cure. Completed 5 doses of weekly carboplatin/paclitaxel on 01/13/18 and radiation therapy today. Tolerated well with c/o fatigue and mild dysphagia (improving) Plans PET/CT and pre op PFTs/Echo at [facility] on 02/17/[address] Oshea. Weight stable, VS WNL, he is not endorsing any s/sx of dehydration and labs reviewed show no evidence to suggest need for IV hydration at this time. CBC reviewed, shows mild thrombocytopenia and anemia, Hgb 12.1. WBC recovered. #2 Chemotherapy induced nausea- Well controlled with Compazine and Zofran at this time. On PPI. #3 Received IV iron for iron deficiency anemia and anemia improved as evidenced by Hgb 12.5 today. RTO 02/12/18 for follow up with Dr. Powell and 02/19/[address] Andrews. Patient encouraged to call in the event he experiences dizziness/weakness prior to next visit and he will be evaluated for IVF support. Zahira Mera, MSN, SILK CREPE MACHINE OPERATOR, AOCNP Medications: Prescriptions This Visit Medication Instructions Recorded Lidocaine/Prilocaine 30 gm TP DAILY PRN PRN #1 cream..g. 12/04/17 [Lidocaine-Prilocaine Cream] Omeprazole 20 mg PO DAILY #30 capsule. 12/17/17 Primary Care Provider: Jd Rosenthal DO Referring Provider: Jd Rosenthal DO - Problem List (1) Esophagus cancer Status: Acute Qualifiers: Malignant neoplasm of esophagus location: lower third Qualified Code(s): C15.5 - Malignant neoplasm of lower third of esophagus (2) Iron deficiency anemia Status: Chronic Qualifiers: Iron deficiency anemia type: other iron deficiency Qualified Code(s): D50.8 - Other iron deficiency anemias 01/27/18 1330 <Electronically signed by Zahira CÁRDENAS> Date Zahira CÁRDENAS Cosigner Signature: Date (if applicable) CC: COMPREHENSIVE METABOLIC Collected: 01/27/2018 Status: F Source: [place] 12:29 PM [facility] REPOSITORY Order Comment: Reason for Laboratory Test . TYPE CODE TESTS RESULT OUT OF RANGE REFERENCE UNITS LAB L501.0100 74-106 mg/dL High GLU 137 Result Comment: Fasting Glucose result greater than or equal to 126 mg/dL suggests DIABETES MELLITUS per A.D.A. criteria. Please note revised GLUCOSE reference range effective 2017. LAB L501.1000 7-18 mg/dL Normal BUN 14 LAB L501.1100 0.70-1.30 mg/dL Normal CREAT,SERUM 0.92 Result Comment: The validity of the calculated GFR AND GFRAA in patients over 70 years has not been determined. Clinical correlation is essential. LAB L501.1110 >60 mL/min Normal EST GFR 90 Result Comment: Non- GFR Calc LAB L501.1115 >60 mL/min Normal EST GFR - AA 109 Result Comment: GFR Calc LAB L501.1255 ml/min Normal Estimated CRCL 98.41 LAB L501.1300 10-20 RATIO Normal BUN/CRE 15.2 LAB L501.1500 6.4-8. g/dL Normal 2 T PROT 6.7 LAB L501.1800 3.2-5. g/dL Normal 0 ALB 3.6 LAB L501.1950 2.2-4. g/dL Normal 2 GLOB 3.1 LAB L501.2000 0.9-2. RATIO Normal 4 A/G 1.2 LAB L501.2200 8.5-10 mg/dL Normal .1 CA 8.6 LAB L501.4100 15-37 U/L Normal AST 26 LAB L501.4305 45-117 U/L Normal ALK P 62 LAB L501.4405 16-61 U/L Normal ALT 32 LAB L501.4600 0.20-1 mg/dL Normal .00 T BILI 0.40 LAB L501.5300 136-14 mmol/L Normal 5 NA 139 LAB L501.5600 3.5-5. mmol/L Normal 1 K 3.8 LAB L501.5900 98-107 mmol/L Normal CL 103 LAB L501.6100 21.0-3 mmol/L Normal 2.0 CO2 28.0 LAB L501.6200 5-15 Normal GAP 8 Performed By: #### L500.4050 #### [facility] [address] [place], [address] CBC W/DIFF, AUTOMATED Collected: 01/27/2018 Status: F Source: [place] 12:29 PM [facility] REPOSITORY Order Comment: Reason for Laboratory Test . TYPE CODE TESTS RESULT OUT OF RANGE REFERENCE UNITS LAB L100.1000 4.4-11.0 K/mm3 Normal WBC 4.6 LAB L100.1200 4.6-6.2 M/mm3 Low RBC 4.56 LAB L100.1300 13.0-16.5 g/dl Low HGB 12.1 LAB L100.1400 40-54 % Low HCT 37.6 LAB L100.1500 80-94 fL Normal MCV 82.5 LAB L100.1600 27.0-32.0 pg Low MCH 26.5 LAB L100.1700 32-36 g/gl Normal MCHC 32.2 LAB L100.1810 11.6-14.6 % High RDW CV 23.5 LAB L100.1820 35.1-43.9 fl High RDW SD 69.6 LAB L100.1900 150-450 K/mm3 Low PLT 105 LAB L100.2000 6.2-12.0 fl Normal MPV 9.0 LAB L100.2100 47-70 % High NEUT% 74.4 LAB L100.2200 19-41 % Low LY% 11.5 LAB L100.2300 0-10 % High MONO% 12.2 LAB L100.2400 0-5 % Normal EO% 1.3 LAB L100.2500 0-1 % Normal BASO% 0.4 LAB L100.2550 0.0-0.9 % Normal IM GRAN % 0.200 Result Comment: IG% - Immature Granulocytes (promyelocytes, myelocytes and metamyelocytes) > 1% indicates that a LEFT SHIFT is Present. LAB L100.2620 2.0-7.7 X10 3/uL Normal Absolute Neut 3.4 LAB L100.2720 0.83-4.51 X10 3/ul Low Absolute Lymph 0.53 LAB L100.7300 ANISO Normal 1+ Performed By: #### L100.0100 #### [facility] [address] [place], [address] ONCOLOGY VISIT REPORT Observed: 01/19/2018 Status: F Source: [place] 11:43 AM [facility] REPOSITORY [facility] [place] [address] [address] OFFICE VISIT Date of Service: 01/19/18 09 MR#: [id number] Acct: [id number] Name: EDUARDO GOMEZ Rep #: [id number] : 1960 From: Zahira CÁRDENAS Age/Sex: 57/M Location: [facility] Status: Signed Subjective - Date of Service Date of Service:: 01/19/18 - Chief Complaint Follow up-esophageal ca - History of Present Illness Patient is a 57-year-old male who presented with progressive painless dysphagia and fatigue due to anemia. No weight loss, no nausea or vomiting, no melena. EGD November 18, 2017 showed a malignant appearing tumor at the e.g. junction involving the very distal esophagus and cardia. Evidence of recent coffee ground material consistent with ulceration and low-grade bleeding. Biopsie MICROSCOPIC DIAGNOSIS A. Antral biopsy: Mild gastritis. B. Antral mass, biopsy: Mild gastritis. Negative for malignancy. C. 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 Chronic active gastritis. A few lymphoid aggregate formations, favor benign. D. 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 CT scan chest November 18, 2017: IMPRESSION: 1.5 cm x 1.4 cm x 2.8 cm nodular density in the right lateral wall of the distal esophagus at the level of the gastroesophageal junction with the evidence of circumferential wall thickening of the distal esophagus. CT scan abdomen November 18, 2017: IMPRESSION: Nodules seen along the right lateral wall of the distal esophagus with circumferential wall thickening of the gastroesophageal junction as described. Punctate calcification in the lower pole calyx of the left kidney. PET/CT November 24, 2017: MPRESSION: 1. ABNORMAL EXAMINATION INDICATIVE OF MALIGNANT VIABLE NEOPLASM. 2. Increased radiopharmaceutical concentration defined in the distal esophagus fulfills quantitative criteria for viable neoplasm. 3. The subcarinal mediastinal hypermetabolic focus fulfills borderline quantitative criteria for viable neoplasm. (Nicolasa et al, Journal of Clinical Oncology 16:2142, 1998). 4. Homogenous increased glucose metabolism manifest in the visualized appendicular-axial skeletal structures, in the absence of chemotherapeutic intervention and marrow stimulation, is consistent with the pattern associated with hyperplasia of the hematopoietic marrow. (Pastor-Josh, AJR 180:669, 2003). 5. No other quantitatively significant hypermetabolic abnormalities are noted. There is no definitive scintigraphic evidence of distant metastatic disease. Treatment: Neoadjuvant concomitant chemoradiation (weekly carbotaxol) 12/16/17- 01/19/18. - Interval History The patient is presenting to clinic accompanied by spouse for 1 week follow up. Completed chemoradiation on 01/13/18. Reports overall he tolerated well with mild c/o sleep disturbance, fatigue and mild, intermittent nausea. Compazine and Zofran are effective. Has not resulted in any episodes of emesis. Denies fever/chills, sweats, headache, reflux, abd pain, swelling/pain of extremities and numbness/tingling. 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 Has an appointment with surgeon, Dr. Oshea at [facility] tomorrow. - Past Medical/Social History Past Medical History Cancer: Esophageal cancer Social History Social History: No changes Smoking Status Never smoker Review of Systems Constitutional:: Reports: Weakness, Fatigue. Denies: Fever, Sweats, Weight loss, Appetite change, Chills Cardiovascular:: Denies: Chest pain, Palpitations, Dyspnea on exertion, Orthopnea, PND, Shortness of breath Respiratory: Denies: Cough, Hemoptysis, Shortness of Breath, Wheezing Gastrointestinal:: Reports: Reflux - on PPI, Dysphagia. Denies: Abdominal pain, Nausea, Vomiting, Diarrhea, Constipation, Melena, Hematochezia Genitourinary: Denies: Dysuria, Hematuria, 15, Flank pain Musculoskeletal:: Denies: Back pain, Myalgia, Arthralgia Skin: Denies: Rash, Skin Changes, Wounds Neurological:: Denies: Headache, Dizziness, Numbness, Tingling, Visual changes, Tinnitus, Hearing loss Psychiatric: Denies: Anxiety, Depression, Homicidal Ideations, Suicidal Ideations Vital Signs Height 6 ft Weight: 267 lb 9.6 oz Weight in Pounds 267.6 lbs BMI 37.5 Pulse Ox 96 - Physical Exam General: Alert, Oriented x3, No apparent distress HEENT: Atraumatic, PERRLA, EOMI, Normocephalic Oropharynx:: Negative for: Dry mucosa, Ulcerated lesions Neck:: Supple, Trachea midline. Negative for: JVD, bilateral Cardiac:: Regular rate, Regular rhythm, Normal S1, Normal S2. Negative for: Murmur Lungs: Clear to auscultation, Excusion symmetrical. Negative for: Rhonchi, Wheezes Abdomen:: Bowel sounds x 4, Soft, Non-tender, Non-distended. Negative for: Hepatosplenomegaly Extremities:: Negative for: Cyanosis, Edema Neurological: Neuro grossly intact Skin:: - - port upper chest, surrounding integument intact without erythema/edema. Negative for: Lesions, Rash, Petechiae, Ecchymosis Psychiatric:: Appropriate affect, Euthymic Lymphatics:: Negative for: Cervical lymphadenopathy, Supraclavicular lymphadenopathy, Axillary lymphadenopathy Laboratory Data: Laboratory Tests WBC 3.7 L (4.4-11.0) K/mm3 Assessment and Plan 57-year-old male with GE junction adenocarcinoma. Patient presented with painless dysphagia, symptomatic anemia (iron deficiency and cancer) He has a good performance status. Recommendation: #1 Started multimodality approach December 16, 2017 that include preop concomitant chemoradiation followed by definitive surgery with an intent to cure. Completed 5 doses of weekly carboplatin/paclitaxel on 01/13/18 and radiation therapy today. Tolerating well with c/o fatigue and mild dysphagia. Objectively he has lost approx 4 lb since his visit with med onc last week. Patient accepted the offer of IV hydration today. CBC reviewed, shows mild thrombocytopenia, platelets 82,000 and Hgb 12.5. Plans to meet with surgeon, Dr. Oshea tomorrow. #2 Chemotherapy induced nausea- Well controlled with Compazine and Zofran at this time. On PPI. #3 Received IV iron for iron deficiency anemia and anemia improved as evidenced by Hgb 12.5 today. RTO next week for follow up, sooner if issues arise. Patient encouraged to call in the event he experiences dizziness/weakness prior to next visit and he will be evaluated for IVF support. Zahira Mera, MSN, [employer] MACHINE OPERATOR, AOCNP Medications: Prescriptions This Visit Medication Instructions Recorded Lidocaine/Prilocaine 30 gm TP DAILY PRN PRN #1 cream..g. 12/04/17 Primary Care Provider: Jd Rosenthal DO Referring Provider: Jd Brown, DO - Problem List (1) Esophagus cancer Status: Acute Qualifiers: Malignant neoplasm of esophagus location: lower third Qualified Code(s): C15.5 - Malignant neoplasm of lower third of esophagus (2) Iron deficiency anemia Status: Chronic Qualifiers: Iron deficiency anemia type: other iron deficiency Qualified Code(s): D50.8 - Other iron deficiency anemias (3) Dehydration Status: Acute 01/19/18 1143 <Electronically signed by Zahira CÁRDENAS> Date Zahira CÁRDENAS Cosigner Signature: Date (if applicable) CC: END OF TREATMENT Observed: 01/19/2018 Status: F Source: [place] SUMMARY 10:19 AM [facility] REPOSITORY [facility] [address] [place] [id number] End of Treatment Summary Date of Service: 01/19/18 1005 MR#: [id number] Acct: [id number] Name: EDUARDO GOMEZ Rep #: [id number] : 1960 From: Roslyn Powell DO Age/Sex: 57/M Location: [facility] Status: Signed End of Treatment Summary: Diagnosis: Eduardo Gomez is a 57-year-old male diagnosed with 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 Oncologic History: 11/05/2017: Patient was referred to general surgery due to progressive dysphasia. 11/18/2017: EGD was performed which demonstrated in the very distal esophagus just proximal to the GE junction there appeared to be evidence of submucosal mass with irregularity at the GE junction with evidence of ulceration and reduce bleeding coffee- ground material, this mass seemed to involve at least 50% of the circumference of the GE junction. The GE junction was approximately at 41-42 cm upon the scope entering the stomach immediately there were coffee-ground mucus staining and as the scope was advanced down to the antral area there was subcutaneous submucosal mass approximately 10 cm from the pylorus identified. Biopsies were obtained of the antrum and also the GE junction mass. Biopsy obtained of the esophagus and cardia were consistent with invasive mucinous adenocarcinoma with focal signet ring features. 11/18/2017: CT chest abdomen pelvis was performed which demonstrated evidence for a 1.5 x 1.4 x 2.8 cm nodular density in the right lateral wall of the distal esophagus at the level of the GE junction with evidence of circumferential wall thickening of the distal esophagus. There is multiple or multiple small lymph nodes within the mediastinum which are normal size and morphology most compatible with reactive hyperplasia. There is no evidence of metastatic disease. 11/20/2017: Patient was evaluated by medical oncology who recommended surgical consultation for consideration of treatment of esophageal cancer and PET/CT to complete staging. Also iron profile and iron administration will be completed due to anemia. 11/24/2017: PET scan was completed which demonstrated increase uptake defined in the distal esophagus for filling quantitive criteria for viable neoplasm. This lesion measures about 5 x 4 cm and has an SUV of 11. There is increase concentration involving a paraesophageal/subcarinal lymph node on the left of midline with an SUV of 3.3 and a measured size of 1.3 cm. There was no evidence of metastatic disease identified. The patient completed a course of external beam radiotherapy in our department. This treatment was delivered for curative intent. Treatment was given according to the following parameters: EDUARDO GOMEZ received 4500 cGy of 6 MV photons in 25 fractions to the distal esophageal tumor with margin, all questionable/involved LNs, and elective LN coverage including celiac and gastrohepatic with a VMAT technique consisting of 2 arcs. A simulataneous integrated boost was used with the same VMAT plan to concurrently treat the gross disease involving the distal esophageal tumor and questionable/involved LNs (para-esophageal borderline and small marlin-gastric) as demonstrated on the PET scan consisting of 5000 cGy of 6 MV photons in [address] with ITV was used for treatment planning and IGRT consisted of daily CBCT. The patient did receive concurrent chemotherapy consisting of weekly carbo/taxol. Date of First Treatment: 12/16/17 Date of Last Treatment: 01/19/18 Total Elapsed Days (including weekend and holidays): 34 Missed Treatments: none Response and Tolerance: The patient tolerated this course of radiotherapy well overall. The following radiation related toxicities developed during the course of radiation therapy: * Grade 1 odynophagia/dysphagia which was treated with MMW and minimal to no dietary modification needed * Reflux was treated with PPI * Grade 1 fatigue Total weight change during therapy: 8-10 lb loss, did not have feeding tube placed Disposition: The patient tolerated the planned course of chemoradiation therapy well without unexpected toxicity in an appropriate time course. I will have Mr. Gomez follow-up in 4 weeks for a routine visit to assess resolution of radiation toxicity. The patient will maintain scheduled follow-up visits with the other providers. He has an appointment with [facility] thoracic surgery on 01/20/18. The patient was instructed to call with any further questions or concerns in the interim. If we can provide any further information on this patient's course of care, please do not hesitate to ask. We would like to thank you very much for allowing us to participate in the care of this patient. Sincerely, Roslyn Powell DO, MS Software Support Technician, Department of Radiation Oncology [facility] 01/19/18 1019 <Electronically signed by Roslyn Powell DO> Date Roslyn Powell DO Cosigner Signature: Date (if applicable) CC: Jd Rosenthal DO; Aj Andrews MD CBC W/DIFF, AUTOMATED Collected: 01/19/2018 Status: F Source: [place] 8:54 AM [facility] REPOSITORY Order Comment: Reason for Laboratory Test . TYPE CODE TESTS RESULT OUT OF RANGE REFERENCE UNITS LAB L100.1000 4.4-11.0 K/mm3 Low WBC 3.7 LAB L100.1200 4.6-6.2 M/mm3 Normal RBC 4.77 LAB L100.1300 13.0-16.5 g/dl Low HGB 12.5 LAB L100.1400 40-54 % Low HCT 39.0 LAB L100.1500 80-94 fL Normal MCV 81.8 LAB L100.1600 27.0-32.0 pg Low MCH 26.2 LAB L100.1700 32-36 g/gl Normal MCHC 32.1 LAB L100.1810 11.6-14.6 % High RDW CV 22.7 LAB L100.1820 35.1-43.9 fl High RDW SD 67.8 LAB L100.1900 150-450 K/mm3 Low PLT 82 LAB L100.2000 6.2-12.0 fl Normal MPV 8.9 LAB L100.2100 47-70 % High NEUT% 85.5 LAB L100.2200 19-41 % Low LY% 7.7 LAB L100.2300 0-10 % Normal MONO% 5.2 LAB L100.2400 0-5 % Normal EO% 0.8 LAB L100.2500 0-1 % Normal BASO% 0.3 LAB L100.2550 0.0-0.9 % Normal IM GRAN % 0.500 Result Comment: IG% - Immature Granulocytes (promyelocytes, myelocytes and metamyelocytes) > 1% indicates that a LEFT SHIFT is Present. LAB L100.2620 2.0-7.7 X10 3/uL Absolute Neut Normal 3.1 LAB L100.2720 0.83-4.51 X10 3/ul Low Absolute Lymph 0.28 LAB L100.5500 ADEQ PLT EST Normal MOD DEC LAB L100.5650 PLT MORPH Normal LARGE LAB L100.7300 ANISO Normal 1+ LAB L100.7600 HYPOCHROMASIA Normal RARE Performed By: #### L100.0100 #### [facility] [address] [place], [place], [id number] COMPREHENSIVE METABOLIC Collected: 01/19/2018 Status: F [facility] 8:[facility] AM [facility] REPOSITORY Order Comment: Reason for Laboratory Test . TYPE CODE TESTS RESULT OUT OF RANGE REFERENCE UNITS LAB L501.0100 74-106 mg/dL High GLU 108 Result Comment: Fasting Glucose result from 100 to 125 mg/dL suggests IMPAIRED HOMEOSTASIS per A.D.A. criteria. Please note revised GLUCOSE reference range effective 2017. LAB L501.1000 7-18 mg/dL Normal BUN 12 LAB L501.1100 0.70-1.30 mg/dL Normal CREAT,SERUM 0.95 Result Comment: The validity of the calculated GFR AND GFRAA in patients over 70 years has not been determined. Clinical correlation is essential. LAB L501.1110 >60 mL/min Normal EST GFR 87 Result Comment: Non- GFR Calc LAB L501.1115 >60 mL/min Normal EST GFR - AA 105 Result Comment: GFR Calc LAB L501.1255 ml/min Normal Estimated CRCL 95.30 LAB L501.1300 10-20 RATIO Normal BUN/CRE 12.6 LAB L501.1500 6.4-8. g/dL Normal 2 T PROT 6.7 LAB L501.1800 3.2-5. g/dL Normal 0 ALB 3.6 LAB L501.1950 2.2-4. g/dL Normal 2 GLOB 3.1 LAB L501.2000 0.9-2. RATIO Normal 4 A/G 1.2 LAB L501.2200 8.5-10 mg/dL Normal .1 CA 8.6 LAB L501.4100 15-37 U/L Normal AST 20 LAB L501.4305 45-117 U/L Normal ALK P 55 LAB L501.4405 16-61 U/L Normal ALT 26 LAB L501.4600 0.20-1 mg/dL Normal .00 T BILI 0.50 LAB L501.5300 136-14 mmol/L Normal 5 NA 139 LAB L501.5600 3.5-5. mmol/L Normal 1 K 4.0 LAB L501.5900 98-107 mmol/L Normal CL 102 LAB L501.6100 21.0-3 mmol/L Normal 2.0 CO2 28.0 LAB L501.6200 5-15 Normal GAP 9 Performed By: #### L500.4050 #### [facility] [address] 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 Plan was made to complete neoadjuvant chemoradiation therapy consisting of 4500 cGy in 25 fractions with a simultaneous integrated boost delivering 5000 cGy in 25 fractions to the areas of gross disease, he is receiving concurrent carbo/Taxol. Surgery will be completed at [facility]. Treatment Data: Treatment Site: Distal Esophagus Current total dose/Total dose planned: 4400 cGy / 5000 cGy Fraction number: Chemotherapy: Weekly Carbo/Taxol (Friday) Subjective: Tolerating radiation therapy well without difficulty Swallowing: mild odynophagia, mild dysphagia, not needing MMW Nutrition/Diet: softer diet with boost 2-3 per day Weight: weight and appetite stable, Nausea/vomiting: some increase after 1st week of chemo, controlled now. Taking zofran tid scheduled and compazine for breakthrough as needed Reflux: none, takes Prilosec daily, occasional tums Resp: mild dry cough occasionally, no SOB Height/Weight/BMI: Height: 6 ft Weight: at sim: 275 lbs (12/17/17: 275.8 lbs, 12/24/17: 270.5 lbs, 12/31/17: 270.8 lbs, 01/07/18: 269.6 lbs, 01/14/18: 267.6 lbs) Vital Signs Temperature 97.4 F L 01/14/18 08:58 Temperature Source Oral 01/14/18 08:58 Pulse Rate 96 01/14/18 08:58 Respiratory Rate 16 11/07/18 08:58 Objective: Gen: NAD Resp: CTAB, no w/r/r Skin: no erythema Laboratory Tests WBC 4.3 L Hgb 12.0 L Plt Count 139 L Laboratory Tests WBC 4.3 L Hgb 12.7 L Plt Count 119 L Absolute Neuts (auto) 3.7 Assessment: Tolerating radiation therapy well overall. All treatment related imaging reviewed and approved Occasional nausea - controlled Reflux - controlled Dysphagia/odynophagia: grade 1 Plan: Continue treatment as planned Discussed potential toxicity and management Nausea: Zofran 8 mg tid scheduled, Compazine 5-10 mg for breakthrough prn Weight: Stable. weigh at home daily, add boost if dropping. Continue Omeprazole daily, MMW Rx prn (not using yet) Follow up next month or sooner if needed. Follow up with Thoracic surgery at [facility] on 01/20, will need restaging PET Thank you for allowing me to participate in the management and care of your patient. If I may answer any questions in the interim, please do not hesitate to contact me at any time. Roslyn Powell DO, MS Software Support Technician, Department of Radiation Oncology [facility] 01/14/18 0907 <Electronically signed by Roslyn Powell DO> Date Roslyn Powell DO Cosign Signature: Date (if applicable) CC: ONCOLOGY VISIT REPORT Observed: 01/13/2018 Status: F Source: [place] 10:47 AM [facility] REPOSITORY [facility] [place] [address] OFFICE VISIT Date of Service: 01/13/18 1035 MR#: [id number] Acct: [id number] Name: EDUARDO GOMEZ Rep #: [id number] : 1960 From: Aj Andrews MD Age/Sex: 57/M Location: [facility] Status: Signed - Problem List (1) Esophagus cancer Status: Acute Qualifiers: Malignant neoplasm of esophagus location: lower third Qualified Code(s): C15.5 - Malignant neoplasm of lower third of esophagus (2) Iron deficiency anemia Status: Chronic Qualifiers: Iron deficiency anemia type: other iron deficiency Qualified Code(s): D50.8 - Other iron deficiency anemias (3) Anemia Status: Chronic (4) Dysphagia Status: Acute Qualifiers: - Date of Service Date of Service:: 01/13/18 - Chief Complaint Esophageal cancer on treatment - History of Present Illness Patient is a 57-year-old male who presented with progressive painless dysphagia and fatigue due to anemia. No weight loss, no nausea or vomiting, no melena. EGD November 18, 2017 showed a malignant appearing tumor at the e.g. junction involving the very distal esophagus and cardia. Evidence of recent coffee ground material consistent with ulceration and low-grade bleeding. Biopsie MICROSCOPIC DIAGNOSIS A. Antral biopsy: Mild gastritis. B. Antral mass, biopsy: Mild gastritis. Negative for malignancy. C. 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 Chronic active gastritis. A few lymphoid aggregate formations, favor benign. D. 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 CT scan chest November 18, 2017: IMPRESSION: 1.5 cm x 1.4 cm x 2.8 cm nodular density in the right lateral wall of the distal esophagus at the level of the gastroesophageal junction with the evidence of circumferential wall thickening of the distal esophagus. CT scan abdomen November 18, 2017: IMPRESSION: Nodules seen along the right lateral wall of the distal esophagus with circumferential wall thickening of the gastroesophageal junction as described. Punctate calcification in the lower pole calyx of the left kidney. PET/CT November 24, 2017: MPRESSION: 1. ABNORMAL EXAMINATION INDICATIVE OF MALIGNANT VIABLE NEOPLASM. 2. Increased radiopharmaceutical concentration defined in the distal esophagus fulfills quantitative criteria for viable neoplasm. 3. The subcarinal mediastinal hypermetabolic focus fulfills borderline quantitative criteria for viable neoplasm. (Nicolasa et al, Journal of Clinical Oncology 16:2142, 1998). 4. Homogenous increased glucose metabolism manifest in the visualized appendicular-axial skeletal structures, in the absence of chemotherapeutic intervention and marrow stimulation, is consistent with the pattern associated with hyperplasia of the hematopoietic marrow. (Moiz, AJR 180:669, 2003). 5. No other quantitatively significant hypermetabolic abnormalities are noted. There is no definitive scintigraphic evidence of distant metastatic disease. Treatment: Neoadjuvant concomitant chemoradiation (weekly carbotaxol) started on December 16, 2017 - Past Medical/Social History Past Medical History Cancer: Esophageal cancer Social History Social History: No changes Smoking Status Never smoker Review of Systems Constitutional:: Reports: Weakness, Fatigue. Denies: Fever, Sweats, Weight loss, Appetite change, Chills Cardiovascular:: Denies: Chest pain, Palpitations, Dyspnea on exertion, Orthopnea, PND, Shortness of breath Respiratory: Denies: Cough, Hemoptysis, Shortness of Breath, Wheezing Gastrointestinal:: Reports: Constipation, Dysphagia - But able to maintain a good oral intake. Denies: Abdominal pain, Nausea, Vomiting, Diarrhea, Hematochezia Genitourinary: Denies: Dysuria, Hematuria, 15, Flank pain Musculoskeletal:: Denies: Back pain, Myalgia, Arthralgia Skin: Denies: Rash, Skin Changes, Wounds Neurological:: Denies: Headache, Dizziness, Visual changes, Tinnitus, Hearing loss Psychiatric: Denies: Anxiety, Depression, Homicidal Ideations, Suicidal Ideations Vital Signs Height 6 ft Weight: 122.47 kg Weight in Pounds 270.0 lbs BMI 37.5 Pulse Ox 97 - Physical Exam General: Alert, Oriented x3, No apparent distress, - - ECOG 1 HEENT: Atraumatic, PERRLA, EOMI, Normocephalic Oropharynx:: Dry mucosa Neck:: Supple, Trachea midline, - - Port okay. Negative for: JVD, bilateral Cardiac:: Regular rate, Regular rhythm, Normal S1, Normal S2. Negative for: Murmur Lungs: Clear to auscultation, Excusion symmetrical. Negative for: Rhonchi, Wheezes Abdomen:: Soft, Non-tender, Non-distended. Negative for: Hepatosplenomegaly Extremities:: Negative for: Cyanosis, Edema Neurological: Neuro grossly intact Skin:: Negative for: Lesions, Rash, Petechiae, Ecchymosis Psychiatric:: Appropriate affect, Euthymic Lymphatics:: Negative for: Cervical lymphadenopathy, Supraclavicular lymphadenopathy Laboratory Data: Laboratory Tests WBC 4.3 L (4.4-11.0) K/mm3 Assessment and Plan 57-year-old male with GE junction adenocarcinoma. Patient presented with painless dysphagia, symptomatic anemia (iron deficiency and cancer) but no weight loss yet. He has a good performance status. Recommendation: #1 Started multimodality approach December 16, 2017 that include preop concomitant chemoradiation followed by definitive surgery with an intent to cure. Continue with concomitant week 5/5 carbotaxol with radiation therapy today he will be monitored on a weekly basis during this phase. #2 nausea vomiting and weight loss better controlled this week. He is beginning to experience some discomfort with swallowing but not requiring treatment. #3 received IV iron for iron deficiency anemia and improved. Patient was seen was his impression and plan reviewed Medications: Prescriptions This Visit Medication Instructions Recorded Lidocaine/Prilocaine 30 gm TP DAILY PRN PRN #1 cream..g. 12/04/17 [Lidocaine-Prilocaine Cream] Omeprazole 20 mg PO DAILY #30 capsule. 12/17/17 Primary Care Provider: Jd Rosenthal DO Referring Provider: Jd Rosenthal DO 01/13/18 1047 <Electronically signed by Aj Andrews MD> Date Aj Andrews MD Cosigner Signature: Date (if applicable) CC: CBC W/DIFF, AUTOMATED Collected: 01/13/2018 Status: F Source: [place] 9:33 AM [facility] REPOSITORY TYPE CODE TESTS RESULT OUT OF RANGE REFERENCE UNITS LAB L100.1000 4.4-11.0 K/mm3 Low WBC 4.3 LAB L100.1200 4.6-6.2 M/mm3 Normal RBC 4.77 LAB L100.1300 13.0-16.5 g/dl Low HGB 12.7 LAB L100.1400 40-54 % Low HCT 39.0 LAB L100.1500 80-94 fL Normal MCV 81.8 LAB L100.1600 27.0-32.0 pg Low MCH 26.6 LAB L100.1700 32-36 g/gl Normal MCHC 32.6 LAB L100.1810 11.6-14.6 % High RDW CV 22.9 LAB L100.1820 35.1-43.9 fl High RDW SD 67.2 LAB L100.1900 150-450 K/mm3 Low PLT 119 LAB L100.2000 6.2-12.0 fl Normal MPV 8.9 LAB L100.2100 47-70 % High NEUT% 85.5 LAB L100.2200 19-41 % Low LY% 4.4 LAB L100.2300 0-10 % Normal MONO% 7.7 LAB L100.2400 0-5 % Normal EO% 1.4 LAB L100.2500 0-1 % Normal BASO% 0.5 LAB L100.2550 0.0-0.9 % Normal IM GRAN % 0.500 Result Comment: IG% - Immature Granulocytes (promyelocytes, myelocytes and metamyelocytes) > 1% indicates that a LEFT SHIFT is Present. LAB L100.2620 2.0-7.7 X10 3/uL Absolute Neut Normal 3.7 LAB L100.2720 0.83-4.51 X10 3/ul Low Absolute Lymph 0.19 LAB L100.5500 ADEQ PLT EST Normal SLT DEC LAB L100.7300 ANISO Normal 1+ LAB L100.7600 HYPOCHROMASIA Normal 1+ LAB L100.7800 MACROCYTE Normal RARE Performed By: #### L100.0100 #### [facility] [address] [place], [place], [id number] COMPREHENSIVE METABOLIC Collected: 01/13/2018 Status: F Source: [facility] 9:33 AM [facility] REPOSITORY Order Comment: Reason for Laboratory Test Chemotherapy TYPE CODE TESTS RESULT OUT OF RANGE REFERENCE UNITS LAB L501.0100 74-106 mg/dL High GLU 219 Result Comment: Glucose result greater than or equal to 200 mg/dL suggests DIABETES MELLITUS per A.D.A. criteria. Please note revised GLUCOSE reference range effective 2017. LAB L501.1000 7-18 mg/dL Normal BUN 15 LAB L501.1100 0.70-1.30 mg/dL Normal CREAT,SERUM 1.07 Result Comment: The validity of the calculated GFR AND GFRAA in patients over 70 years has not been determined. Clinical correlation is essential. LAB L501.1110 >60 mL/min Normal EST GFR 76 Result Comment: Non- GFR Calc LAB L501.1115 >60 mL/min Normal EST GFR - AA 92 Result Comment: GFR Calc LAB L501.1255 ml/min Normal Estimated CRCL 84.61 LAB L501.1300 10-20 RATIO Normal BUN/CRE 14.0 LAB L501.1500 6.4-8. g/dL Normal 2 T PROT 7.0 LAB L501.1800 3.2-5. g/dL Normal 0 ALB 3.7 LAB L501.1950 2.2-4. g/dL Normal 2 GLOB 3.3 LAB L501.2000 0.9-2. RATIO Normal 4 A/G 1.1 LAB L501.2200 8.5-10 mg/dL Normal .1 CA 8.6 LAB L501.4100 15-37 U/L Normal AST 16 LAB L501.4305 45-117 U/L Normal ALK P 58 LAB L501.4405 16-61 U/L Normal ALT 24 LAB L501.4600 0.20-1 mg/dL Normal .00 T BILI 0.30 LAB L501.5300 136-14 mmol/L Normal 5 NA 136 LAB L501.5600 3.5-5. mmol/L Normal 1 K 4.2 LAB L501.5900 98-107 mmol/L Normal CL 102 LAB L501.6100 21.0-3 mmol/L Normal 2.0 CO2 26.0 LAB L501.6200 5-15 Normal GAP 8 Performed By: #### L500.4050 #### [facility] [address] [place], [place], [address] RADIATION ONCOLOGY Observed: 01/07/2018 Status: F Source: [place] VISIT 9:00 AM [facility] REPOSITORY [facility] [address] 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 Plan was made to complete neoadjuvant chemoradiation therapy consisting of 4500 cGy in 25 fractions with a simultaneous integrated boost delivering 5000 cGy in 25 fractions to the areas of gross disease, he is receiving concurrent carbo/Taxol. Surgery will be completed at [facility]. Treatment Data: Treatment Site: Distal Esophagus Current total dose/Total dose planned: 3400 cGy / 5000 cGy Fraction number: Chemotherapy: Weekly Carbo/Taxol (Friday) Subjective: Tolerating radiation therapy well without difficulty Swallowing: mild odynophagia, mild dysphagia, not needing MMW Nutrition/Diet: softer diet with boost 2-3 per day Weight: weight and appetite stable, Nausea/vomiting: some increase after 1st week of chemo, controlled now. Taking zofran tid scheduled and compazine for breakthrough as needed Reflux: none, takes Prilosec daily, occasional tums Resp: mild dry cough occasionally, no SOB Height/Weight/BMI: Height: 6 ft Weight: at sim: 275 lbs (12/17/17: 275.8 lbs, 12/24/17: 270.5 lbs, 12/31/17: 270.8 lbs, 01/07/18: 269.6 lbs) Vital Signs Temperature 97.6 F L 01/07/18 08:55 Temperature Source Oral 01/07/18 08:55 Pulse Rate 75 01/07/18 08:55 Respiratory Rate 16 01/07/18 08:55 Objective: Gen: NAD Resp: CTAB, no w/r/r Skin: no erythema Laboratory Tests WBC 4.3 L Hgb 12.0 L Plt Count 139 L Assessment: Tolerating radiation therapy well overall. All treatment related imaging reviewed and approved Occasional nausea - controlled Reflux - controlled Dysphagia/odynophagia: grade 1 Plan: Continue treatment as planned Discussed potential toxicity and management Nausea: Zofran 8 mg tid scheduled, Compazine 5 mg for breakthrough (not needing right now) Weight: weigh at home daily, add boost if dropping. Continue Omeprazole, MMW Rx provided to be used as needed (not using yet) Follow up next week or sooner if needed Thank you for allowing me to participate in the management and care of your patient. If I may answer any questions in the interim, please do not hesitate to contact me at any time. Roslyn Powell DO, MS Software Support Technician, Department of Radiation Oncology [facility] 01/07/18 0900 <Electronically signed by Roslyn Powell DO> Date Roslyn Powell DO Cosigner Signature: Date (if applicable) CC: ONCOLOGY VISIT REPORT Observed: 01/06/2018 Status: F Source: [place] 11:49 AM [facility] REPOSITORY [facility] [address] [place] [address] [place] [address] OFFICE VISIT Date of Service: 01/06/18 1139 MR#: [id number] Acct: [id number] Name: EDUARDO GOMEZ Rep #: [id number] : 1960 From: Carson Randolph MD Age/Sex: 57/M Location: ONC Status: Signed Subjective - Date of Service Date of Service:: 01/06/18 - Chief Complaint GEJ cancer on treatment - History of Present Illness Patient is a 57-year-old male who presented with progressive painless dysphagia and fatigue due to anemia. No weight loss, no nausea or vomiting, no melena. EGD November 18, 2017 showed a malignant appearing tumor at the e.g. junction involving the very distal esophagus and cardia. Evidence of recent coffee ground material consistent with ulceration and low-grade bleeding. Biopsie MICROSCOPIC DIAGNOSIS A. Antral biopsy: Mild gastritis. B. Antral mass, biopsy: Mild gastritis. Negative for malignancy. C. 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 Chronic active gastritis. A few lymphoid aggregate formations, favor benign. D. 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 CT scan chest November 18, 2017: IMPRESSION: 1.5 cm x 1.4 cm x 2.8 cm nodular density in the right lateral wall of the distal esophagus at the level of the gastroesophageal junction with the evidence of circumferential wall thickening of the distal esophagus. CT scan abdomen November 18, 2017: IMPRESSION: Nodules seen along the right lateral wall of the distal esophagus with circumferential wall thickening of the gastroesophageal junction as described. Punctate calcification in the lower pole calyx of the left kidney. PET/CT November 24, 2017: MPRESSION: 1. ABNORMAL EXAMINATION INDICATIVE OF MALIGNANT VIABLE NEOPLASM. 2. Increased radiopharmaceutical concentration defined in the distal esophagus fulfills quantitative criteria for viable neoplasm. 3. The subcarinal mediastinal hypermetabolic focus fulfills borderline quantitative criteria for viable neoplasm. (Nicolasa et al, Journal of Clinical Oncology 16:2142, 1998). 4. Homogenous increased glucose metabolism manifest in the visualized appendicular-axial skeletal structures, in the absence of chemotherapeutic intervention and marrow stimulation, is consistent with the pattern associated with hyperplasia of the hematopoietic marrow. (Moiz, AJR 180:669, 2003). 5. No other quantitatively significant hypermetabolic abnormalities are noted. There is no definitive scintigraphic evidence of distant metastatic disease. Treatment: Neoadjuvant concomitant chemoradiation (weekly carbo+taxol) started on December 16, 2017, comes for week 4. - Past Medical/Social History Past Medical History Cancer: Esophageal cancer Social History Social History: No changes Smoking Status Never smoker Review of Systems Constitutional:: Denies: Fever, Sweats, Weight loss, Appetite change, Chills Cardiovascular:: Denies: Chest pain, Palpitations, Dyspnea on exertion, Orthopnea, PND, Shortness of breath Respiratory: Denies: Cough, Hemoptysis, Shortness of Breath, Wheezing Gastrointestinal:: Denies: Abdominal pain, Nausea, Vomiting, Diarrhea, Constipation, Hematochezia Genitourinary: Denies: Dysuria, Hematuria, 15, Flank pain Musculoskeletal:: Denies: Back pain, Myalgia, Arthralgia Skin: Denies: Rash, Skin Changes, Wounds Neurological:: Denies: Headache, Dizziness, Visual changes, Tinnitus, Hearing loss Psychiatric: Denies: Anxiety, Depression, Homicidal Ideations, Suicidal Ideations Vital Signs Height 6 ft Weight: 122.47 kg Weight in Pounds 270.0 lbs BMI 37.5 Pulse Ox 98 - Physical Exam General: - - [place] area. HEENT: Atraumatic, PERRLA, EOMI, Normocephalic Oropharynx:: Dry mucosa Neck:: Supple, Trachea midline. Negative for: JVD, bilateral Cardiac:: Regular rate, Regular rhythm, Normal S1, Normal S2. Negative for: Murmur Lungs: Clear to auscultation, Excusion symmetrical. Negative for: Rhonchi, Wheezes Abdomen:: Bowel sounds x 4, Soft, Non-tender, Non-distended. Negative for: Hepatosplenomegaly Extremities:: Negative for: Cyanosis, Edema Neurological: Neuro grossly intact Skin:: Negative for: Lesions, Rash, Petechiae, Ecchymosis Psychiatric:: Appropriate affect, Euthymic Lymphatics:: Negative for: Cervical lymphadenopathy, Supraclavicular lymphadenopathy, Axillary lymphadenopathy Laboratory Data: Laboratory Tests Assessment and Plan GEJ adenocarcinoma on neoadjuvant chemotherapy-Taxol + Carboplatin, and radiation therapy. Tolerating therapy, counts are OK for therapy. Plan is to proceed with 4th weekly Taxol and Carboplatin. RTC 1 week with CBC, CMP for Cycle 5. Medications: Prescriptions This Visit Medication Instructions Recorded Lidocaine/Prilocaine 30 gm TP DAILY PRN PRN #1 cream..g. 12/04/17 [Lidocaine-Prilocaine Cream] Omeprazole 20 mg PO DAILY #30 capsule. 12/17/17 Primary Care Provider: Jd Rosenthal DO Referring Provider: Jd Rosenthal DO - Problem List (1) Gastroesophageal cancer Status: Chronic (2) Chemotherapy management, encounter for Status: Acute Code Visit Office Visits / Consults: [id number] OV L5 Est 01/06/18 1149 <Electronically signed by Carson Randolph MD> Date Carson Randolph MD Cosigner Signature: Date (if applicable) CC: CBC W/DIFF, AUTOMATED Collected: 01/06/2018 Status: F Source: [place] 9:14 AM [facility] REPOSITORY TYPE CODE TESTS RESULT OUT OF RANGE REFERENCE UNITS LAB L100.1000 4.4-11.0 K/mm3 Low WBC 4.3 LAB L100.1200 4.6-6.2 M/mm3 Low RBC 4.57 LAB L100.1300 13.0-16.5 g/dl Low HGB 12.0 LAB L100.1400 40-54 % Low HCT 37.7 LAB L100.1500 80-94 fL Normal MCV 82.5 LAB L100.1600 27.0-32.0 pg Low MCH 26.3 LAB L100.1700 32-36 g/gl Low MCHC 31.8 LAB L100.1810 11.6-14.6 % High RDW CV 22.9 LAB L100.1820 35.1-43.9 fl High RDW SD 67.1 LAB L100.1900 150-450 K/mm3 Low PLT 139 LAB L100.2000 6.2-12.0 fl Normal MPV 9.5 LAB L100.2100 47-70 % High NEUT% 83.6 LAB L100.2200 19-41 % Low LY% 7.3 LAB L100.2300 0-10 % Normal MONO% 7.3 LAB L100.2400 0-5 % Normal EO% 1.4 LAB L100.2500 0-1 % Normal BASO% 0.2 LAB L100.2550 0.0-0.9 % Normal IM GRAN % 0.200 Result Comment: IG% - Immature Granulocytes (promyelocytes, myelocytes and metamyelocytes) > 1% indicates that a LEFT SHIFT is Present. LAB L100.2620 2.0-7.7 X10 3/uL Normal Absolute Neut 3.6 LAB L100.2720 0.83-4.51 X10 3/ul Low Absolute Lymph 0.31 LAB L100.5500 ADEQ Normal PLT EST ADEQUATE LAB L100.7300 Normal ANISO RARE Performed By: #### L100.0100 #### [facility] [address] [place], [place], [address] COMPREHENSIVE METABOLIC Collected: 01/06/2018 Status: F Source: [place] 9:14 AM [facility] REPOSITORY Order Comment: Reason for Laboratory Test Chemotherapy TYPE CODE TESTS RESULT OUT OF RANGE REFERENCE UNITS LAB L501.0100 74-106 mg/dL High GLU 121 Result Comment: Fasting Glucose result from 100 to 125 mg/dL suggests IMPAIRED HOMEOSTASIS per A.D.A. criteria. Please note revised GLUCOSE reference range effective 2017. LAB L501.1000 7-18 mg/dL Normal BUN 14 LAB L501.1100 0.70-1.30 mg/dL Normal CREAT,SERUM 0.90 Result Comment: The validity of the calculated GFR AND GFRAA in patients over 70 years has not been determined. Clinical correlation is essential. LAB L501.1110 >60 mL/min Normal EST GFR 93 Result Comment: Non- GFR Calc LAB L501.1115 >60 mL/min Normal EST GFR - AA 112 Result Comment: GFR Calc LAB L501.1255 ml/min Normal Estimated CRCL 100.59 LAB L501.1300 10-20 RATIO BUN/CRE Normal 15.5 LAB L501.1500 6.4-8. g/dL 2 T PROT Normal 6.6 LAB L501.1800 3.2-5. g/dL 0 ALB Normal 3.5 LAB L501.1950 2.2-4. g/dL 2 GLOB Normal 3.1 LAB L501.2000 0.9-2. RATIO 4 A/G Normal 1.1 LAB L501.2200 8.5-10 mg/dL .1 CA Normal 8.8 LAB L501.4100 15-37 U/L AST Normal 16 LAB L501.4305 45-117 U/L ALK P Normal 55 LAB L501.4405 16-61 U/L ALT Normal 21 LAB L501.4600 0.20-1 mg/dL .00 T BILI Normal 0.30 LAB L501.5300 136-14 mmol/L 5 NA Normal 137 LAB L501.5600 3.5-5. mmol/L 1 K Normal 3.9 LAB L501.5900 98-107 mmol/L CL Normal 103 LAB L501.6100 21.0-3 mmol/L 2.0 CO2 Normal 30.0 LAB L501.6200 5-15 Low GAP 4 Performed By: #### L500.4050 #### [facility] [address] [place], [address] RADIATION ONCOLOGY Observed: 12/31/2017 Status: F Source: [place] VISIT 9:13 AM [facility] REPOSITORY [facility] [address] 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 Plan was made to complete neoadjuvant chemoradiation therapy consisting of 4500 cGy in 25 fractions with a simultaneous integrated boost delivering 5000 cGy in 25 fractions to the areas of gross disease, he is receiving concurrent carbo/Taxol. Surgery will be completed at [facility] Treatment Data: Treatment Site: Distal Esophagus Current total dose/Total dose planned: 2400 cGy / 5000 cGy Fraction number: Chemotherapy: Weekly Carbo/Taxol (Friday) Subjective: Tolerating radiation therapy well without difficulty Swallowing: no odynophagia, mild dysphagia Nutrition/Diet: normal diet without restriction, no supplements Weight: weight and appetite stable, nausea reducing intake occurs /Friday Nausea/vomiting: some increase after 1st week of chemo, none now. Taking zofran tid scheduled and compazine for breakthrough as needed Reflux: none, takes Prilosec daily, occasional tums Height/Weight/BMI: Height: 6 ft Weight: at sim: 275 lbs (12/17/17: 275.8 lbs, 12/24/17: 270.5 lbs, 12/31/17: 270.8 lbs) Vital Signs Temperature 98.6 F 12/31/17 08:55 Temperature Source Core 12/31/17 08:55 Pulse Rate 71 12/31/17 08:55 Respiratory Rate 16 12/31/17 08:55 Objective: Gen: NAD Resp: CTAB, no w/r/r Skin: no erythema Assessment: Tolerating radiation therapy well overall. All treatment related imaging reviewed and approved Occasional nausea - controlled Reflux - controlled Plan: Continue treatment as planned Discussed potential toxicity and management Nausea: Zofran 8 mg tid scheduled, Compazine 5 mg for breakthrough (not needing right now) Weight: weigh at home daily, add boost if dropping. Continue Omeprazole, MMW Rx provided Follow up next week or sooner if needed Thank you for allowing me to participate in the management and care of your patient. If I may answer any questions in the interim, please do not hesitate to contact me at any time. Roslyn Powell DO, MS Software Support Technician, Department of Radiation Oncology [facility] 12/31/17912 <Electronically signed by Roslyn Powell DO> Date Roslyn Powell DO Cosigner Signature: Date (if applicable) CC: ONCOLOGY VISIT REPORT Observed: 12/30/2017 Status: F Source: [place] 10:03 AM [facility] REPOSITORY [facility] [place] [address] OFFICE VISIT Date of Service: 12/30/17951 MR#: [id number] Acct: [id number] Name: EDUARDO GOMEZ Rep #: [id number] : 1960 From: Aj Andrews MD Age/Sex: 57/M Location: ONC Status: Signed - Problem List (1) Esophagus cancer Status: Acute Qualifiers: Malignant neoplasm of esophagus location: lower third (2) Iron deficiency anemia Status: Chronic Qualifiers: Iron deficiency anemia type: other iron deficiency Qualified Code(s): D50.8 - Other iron deficiency anemias (3) Anemia Status: Chronic (4) Dysphagia Status: Acute Qualifiers: - Date of Service Date of Service:: 12/30/17 - Chief Complaint Esophagus cancer on treatment - History of Present Illness Patient is a 57-year-old male who presented with progressive painless dysphagia and fatigue due to anemia. No weight loss, no nausea or vomiting, no melena. EGD November 18, 2017 showed a malignant appearing tumor at the e.g. junction involving the very distal esophagus and cardia. Evidence of recent coffee ground material consistent with ulceration and low-grade bleeding. Biopsie MICROSCOPIC DIAGNOSIS A. Antral biopsy: Mild gastritis. B. Antral mass, biopsy: Mild gastritis. Negative for malignancy. C. 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 Chronic active gastritis. A few lymphoid aggregate formations, favor benign. D. 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 CT scan chest November 18, 2017: IMPRESSION: 1.5 cm x 1.4 cm x 2.8 cm nodular density in the right lateral wall of the distal esophagus at the level of the gastroesophageal junction with the evidence of circumferential wall thickening of the distal esophagus. CT scan abdomen November 18, 2017: IMPRESSION: Nodules seen along the right lateral wall of the distal esophagus with circumferential wall thickening of the gastroesophageal junction as described. Punctate calcification in the lower pole calyx of the left kidney. PET/CT November 24, 2017: MPRESSION: 1. ABNORMAL EXAMINATION INDICATIVE OF MALIGNANT VIABLE NEOPLASM. 2. Increased radiopharmaceutical concentration defined in the distal esophagus fulfills quantitative criteria for viable neoplasm. 3. The subcarinal mediastinal hypermetabolic focus fulfills borderline quantitative criteria for viable neoplasm. (Nicolasa reyes al, Journal of Clinical Oncology 16:2142, 1998). 4. Homogenous increased glucose metabolism manifest in the visualized appendicular-axial skeletal structures, in the absence of chemotherapeutic intervention and marrow stimulation, is consistent with the pattern associated with hyperplasia of the hematopoietic marrow. (Moiz, AJR 180:669, 2003). 5. No other quantitatively significant hypermetabolic abnormalities are noted. There is no definitive scintigraphic evidence of distant metastatic disease. Treatment: Neoadjuvant concomitant chemoradiation (weekly carbotaxol) started on December 16, 2017 - Past Medical/Social History Past Medical History Cancer: Esophageal cancer Social History Social History: No changes Smoking Status Never smoker Review of Systems Constitutional:: Reports: Fatigue Cardiovascular:: Denies: Chest pain, Palpitations, Dyspnea on exertion, Orthopnea, PND, Shortness of breath Respiratory: Denies: Cough, Hemoptysis, Shortness of Breath, Wheezing Gastrointestinal:: Reports: Nausea, Vomiting - Both nausea and vomiting are better controlled with [id number] anti-emetics, Dysphagia - Discomfort with swallowing Genitourinary: Denies: Dysuria, Hematuria, 15, Flank pain Musculoskeletal:: Denies: Back pain, Myalgia, Arthralgia Skin: Denies: Rash, Skin Changes, Wounds Neurological:: Denies: Headache, Dizziness, Visual changes, Tinnitus, Hearing loss Psychiatric: Denies: Anxiety, Depression, Homicidal Ideations, Suicidal Ideations Vital Signs Height 6 ft Weight: 123.468 kg Weight in Pounds 272.2 lbs BMI 37.5 Pulse Ox 99 - Physical Exam General: Alert, Oriented x3, No apparent distress, - - ECOG 1 HEENT: Atraumatic, PERRLA, EOMI, Normocephalic Oropharynx:: Dry mucosa Neck:: Supple, Trachea midline, -. Negative for: JVD, bilateral Cardiac:: Regular rate, Regular rhythm, Normal S1, Normal S2. Negative for: Murmur Lungs: Clear to auscultation, Excusion symmetrical. Negative for: Rhonchi, Wheezes Abdomen:: Soft, Non-tender, Non-distended. Negative for: Hepatosplenomegaly Extremities:: Negative for: Cyanosis, Edema Neurological: Neuro grossly intact Skin:: Negative for: Lesions, Rash, Petechiae, Ecchymosis Psychiatric:: Appropriate affect, Euthymic Lymphatics:: Negative for: Cervical lymphadenopathy, Supraclavicular lymphadenopathy Laboratory Data: Laboratory Tests WBC 4.3 L (4.4-11.0) K/mm3 RBC 4.37 L (4.6-6.2) M/mm3 Hgb 11.2 L (13.0-16.5) g/dl Assessment and Plan 57-year-old male with GE junction adenocarcinoma. Patient presented with painless dysphagia, symptomatic anemia (iron deficiency and cancer) but no weight loss yet. He has a good performance status. Recommendation: #1 Started multimodality approach December 16, 2017 that include preop concomitant chemoradiation followed by definitive surgery with an intent to cure. Continue with concomitant weekly carbotaxol with radiation therapy today he will be monitored on a weekly basis during this phase. #2 nausea vomiting and weight loss better controlled this week. He is beginning to experience some discomfort with swallowing but not requiring treatment. #3 received IV iron for iron deficiency anemia and improved. Patient was seen was his impression and plan reviewed Medications: Prescriptions This Visit Medication Instructions Recorded Lidocaine/Prilocaine 30 gm TP DAILY PRN PRN #1 cream..g. 12/04/17 [Lidocaine-Prilocaine Cream] Primary Care Provider: Jd Rosenthal DO Referring Provider: Jd Rosenthal DO 12/30/17 1003 <Electronically signed by Aj Andrews MD> Date Aj Andrews MD Cosigner Signature: Date (if applicable) CC: CBC W/DIFF, AUTOMATED Collected: 12/30/2017 Status: C Source: [place] 9:05 AM [facility] REPOSITORY TYPE CODE TESTS RESULT OUT OF RANGE REFERENCE UNITS LAB L100.1000 4.4-11.0 K/mm3 Low WBC 4.3 LAB L100.1200 4.6-6.2 M/mm3 Low RBC 4.37 LAB L100.1300 13.0-16.5 g/dl Low HGB 11.2 LAB L100.1400 40-54 % Low HCT 36.1 LAB L100.1500 80-94 fL Normal MCV 82.6 LAB L100.1600 27.0-32.0 pg Low MCH 25.6 LAB L100.1700 32-36 g/gl Low MCHC 31.0 LAB L100.1810 11.6-14.6 % High RDW CV 22.6 LAB L100.1820 35.1-43.9 fl High RDW SD 65.7 LAB L100.1900 150-450 K/mm3 Low PLT 139 LAB L100.2000 6.2-12.0 fl Normal MPV 9.8 LAB L100.2100 47-70 % High NEUT% 84.2 LAB L100.2200 19-41 % Low LY% 4.6 LAB L100.2300 0-10 % Normal MONO% 8.6 LAB L100.2400 0-5 % Normal EO% 1.9 LAB L100.2500 0-1 % Normal BASO% 0.5 LAB L100.2550 0.0-0.9 % Normal IM GRAN % 0.200 Result Comment: IG% - Immature Granulocytes (promyelocytes, myelocytes and metamyelocytes) > 1% indicates that a LEFT SHIFT is Present. LAB L100.2620 2.0-7.7 X10 3/uL Normal Absolute Neut 3.6 LAB L100.2720 0.83-4.51 X10 3/ul Low Absolute Lymph 0.20 LAB L100.7300 1+ Normal ANISO LAB L100.9900 Normal PATH REV Reviewed Result Comment: AMENDED REPORT 01/01/18 1314 PATH REV previously reported as: July juan Performed By: #### L100.0100 #### [facility] [address] [facility]. [place], [place], [address] COMPREHENSIVE METABOLIC Collected: 12/30/2017 Status: F Source: [facility] 9:05 AM [facility] REPOSITORY Order Comment: Reason for Laboratory Test Chemotherapy TYPE CODE TESTS RESULT OUT OF RANGE REFERENCE UNITS LAB L501.0100 74-106 mg/dL High GLU 136 Result Comment: Fasting Glucose result greater than or equal to 126 mg/dL suggests DIABETES MELLITUS per A.D.A. criteria. Please note revised GLUCOSE reference range effective 2017. LAB L501.1000 7-18 mg/dL Normal BUN 15 LAB L501.1100 0.70-1.30 mg/dL Normal CREAT,SERUM 0.88 Result Comment: The validity of the calculated GFR AND GFRAA in patients over 70 years has not been determined. Clinical correlation is essential. LAB L501.1110 >60 mL/min Normal EST GFR 96 Result Comment: Non- GFR Calc LAB L501.1115 >60 mL/min Normal EST GFR - AA 116 Result Comment: GFR Calc LAB L501.1255 ml/min Normal Estimated CRCL 102.88 LAB L501.1300 10-20 RATIO BUN/CRE Normal 17.1 LAB L501.1500 6.4-8. g/dL 2 T PROT Normal 6.6 LAB L501.1800 3.2-5. g/dL 0 ALB Normal 3.6 LAB L501.1950 2.2-4. g/dL 2 GLOB Normal 3.0 LAB L501.2000 0.9-2. RATIO 4 A/G Normal 1.2 LAB L501.2200 8.5-10 mg/dL .1 CA Normal 8.8 LAB L501.4100 15-37 U/L Low AST 13 LAB L501.4305 45-117 U/L ALK P Normal 54 LAB L501.4405 16-61 U/L ALT Normal 20 LAB L501.4600 0.20-1 mg/dL .00 T BILI Normal 0.40 LAB L501.5300 136-14 mmol/L 5 NA Normal 138 LAB L501.5600 3.5-5. mmol/L 1 K Normal 3.8 LAB L501.5900 98-107 mmol/L CL Normal 102 LAB L501.6100 21.0-3 mmol/L 2.0 CO2 Normal 29.0 LAB L501.6200 5-15 GAP Normal 7 Performed By: #### L500.4050 #### [facility] [address] [place], [place], [address] RADIATION ONCOLOGY Observed: 12/24/2017 Status: F Source: [place] VISIT 9:10 AM [facility] REPOSITORY [facility] 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 Plan was made to complete neoadjuvant chemoradiation therapy consisting of 4500 cGy in 25 fractions with a simultaneous integrated boost delivering 5000 cGy in 25 fractions to the areas of gross disease, he is receiving concurrent carbo/Taxol. Surgery will be completed at [facility] Treatment Data: Treatment Site: Distal Esophagus Current total dose/Total dose planned: 1400 cGy / 5000 cGy Fraction number: Chemotherapy: Weekly Carbo/Taxol (Friday) Subjective: Tolerating radiation therapy well without difficulty Swallowing: no odynophagia, mild dysphagia Nutrition/Diet: normal diet without restriction, no supplements Weight: down a few lbs from last week, likely due to nausea reducing intake but now stable Nausea/vomiting: some increase after 1st week of chemo, none now. Taking zofran tid scheduled and compazine for breakthrough as needed Reflux: none, takes Prilosec daily, occasional tums Height/Weight/BMI: Height: 6 ft Weight: at sim: 275 lbs (12/17/17: 275.8 lbs, 12/24/17: 270.5 lbs) Vital Signs Temperature 98.1 F 12/24/17 08:50 Temperature Source Oral 12/24/17 08:50 Pulse Rate 70 12/24/17 08:50 Respiratory Rate 16 12/24/17 08:50 Objective: Gen: NAD Resp: CTAB, no w/r/r Skin: no erythema Assessment: Tolerating radiation therapy well overall. All treatment related imaging reviewed and approved Occasional nausea - controlled Reflux - controlled Plan: Continue treatment as planned Discussed potential toxicity and management Nausea: Zofran 8 mg tid scheduled, Compazine 5 mg for breakthrough (not needing right now) Weight: weigh at home daily, add boost if dropping. Continue Omeprazole Follow up next week or sooner if needed Thank you for allowing me to participate in the management and care of your patient. If I may answer any questions in the interim, please do not hesitate to contact me at any time. Roslyn Powell DO, MS Software Support Technician, Department of Radiation Oncology [facility] 12/24/17 0910 <Electronically signed by Roslyn Powell DO> Date Roslyn Powell DO Cosigner Signature: Date (if applicable) CC: ONCOLOGY VISIT REPORT Observed: 12/23/2017 Status: F Source: [place] 10:04 AM [facility] REPOSITORY [facility] [address] [place] [id number] OFFICE VISIT Date of Service: 12/23/17 1000 MR#: [id number] Acct: [id number] Name: EDUARDO GOMEZ Lissett Rep #: [id number] : 1960 From: Aj Andrews MD Age/Sex: 57/M Location: ONC Status: Signed - Problem List (1) Esophagus cancer Status: Acute Qualifiers: Malignant neoplasm of esophagus location: lower third (2) Iron deficiency anemia Status: Chronic Qualifiers: Iron deficiency anemia type: other iron deficiency Qualified Code(s): D50.8 - Other iron deficiency anemias (3) Anemia Status: Chronic (4) Dysphagia Status: Acute Qualifiers: - Date of Service Date of Service:: 12/23/17 - Chief Complaint Esophageal cancer on treatment - History of Present Illness Patient is a 57-year-old male who presented with progressive painless dysphagia and fatigue due to anemia. No weight loss, no nausea or vomiting, no melena. EGD November 18, 2017 showed a malignant appearing tumor at the e.g. junction involving the very distal esophagus and cardia. Evidence of recent coffee ground material consistent with ulceration and low-grade bleeding. Biopsie MICROSCOPIC DIAGNOSIS A. Antral biopsy: Mild gastritis. B. Antral mass, biopsy: Mild gastritis. Negative for malignancy. C. 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 Chronic active gastritis. A few lymphoid aggregate formations, favor benign. D. 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 CT scan chest November 18, 2017: IMPRESSION: 1.5 cm x 1.4 cm x 2.8 cm nodular density in the right lateral wall of the distal esophagus at the level of the gastroesophageal junction with the evidence of circumferential wall thickening of the distal esophagus. CT scan abdomen November 18, 2017: IMPRESSION: Nodules seen along the right lateral wall of the distal esophagus with circumferential wall thickening of the gastroesophageal junction as described. Punctate calcification in the lower pole calyx of the left kidney. PET/CT November 24, 2017: MPRESSION: 1. ABNORMAL EXAMINATION INDICATIVE OF MALIGNANT VIABLE NEOPLASM. 2. Increased radiopharmaceutical concentration defined in the distal esophagus fulfills quantitative criteria for viable neoplasm. 3. The subcarinal mediastinal hypermetabolic focus fulfills borderline quantitative criteria for viable neoplasm. (Nicolasa et al, Journal of Clinical Oncology 16:2142, 1998). 4. Homogenous increased glucose metabolism manifest in the visualized appendicular-axial skeletal structures, in the absence of chemotherapeutic intervention and marrow stimulation, is consistent with the pattern associated with hyperplasia of the hematopoietic marrow. (Pastor-Josh, AJR 180:669, 2003). 5. No other quantitatively significant hypermetabolic abnormalities are noted. There is no definitive scintigraphic evidence of distant metastatic disease. Treatment: Neoadjuvant concomitant chemoradiation (weekly carbotaxol) started on December 16, 2017 - Past Medical/Social History Past Medical History Cancer: Esophageal cancer Social History Social History: No changes Smoking Status Never smoker Review of Systems Constitutional:: Reports: Fatigue, Weight loss. Denies: Fever, Sweats, Appetite change, Chills Cardiovascular:: Denies: Chest pain, Palpitations, Dyspnea on exertion, Orthopnea, PND, Shortness of breath Respiratory: Denies: Cough, Hemoptysis, Shortness of Breath, Wheezing Gastrointestinal:: Reports: Nausea - Better control with [id number] Zofran and as needed Compazine, Diarrhea - Intermittent bouts, Dysphagia. Denies: Abdominal pain, Vomiting, Constipation, Hematochezia Genitourinary: Denies: Dysuria, Hematuria, 15, Flank pain Musculoskeletal:: Denies: Back pain, Myalgia, Arthralgia Skin: Denies: Rash, Skin Changes, Wounds Neurological:: Denies: Headache, Dizziness, Visual changes, Tinnitus, Hearing loss Psychiatric: Denies: Anxiety, Depression, Homicidal Ideations, Suicidal Ideations Vital Signs Height 6 ft Weight: 123.74 kg Weight in Pounds 272.8 lbs BMI 37.5 Pulse Ox 99 - Physical Exam General: Alert, Oriented x3, No apparent distress, - - ECOG 1 HEENT: Atraumatic, PERRLA, EOMI, Normocephalic Oropharynx:: Dry mucosa Neck:: Supple, Trachea midline, -. Negative for: JVD, bilateral Cardiac:: Regular rate, Regular rhythm, Normal S1, Normal S2. Negative for: Murmur Lungs: Clear to auscultation, Excusion symmetrical. Negative for: Rhonchi, Wheezes Abdomen:: Soft, Non-tender, Non-distended. Negative for: Hepatosplenomegaly Extremities:: Negative for: Cyanosis, Edema Neurological: Neuro grossly intact Skin:: Negative for: Lesions, Rash, Petechiae, Ecchymosis Psychiatric:: Appropriate affect, Euthymic Lymphatics:: Negative for: Cervical lymphadenopathy, Supraclavicular lymphadenopathy Laboratory Data: Laboratory Tests Assessment and Plan 57-year-old male with GE junction adenocarcinoma. Patient presented with painless dysphagia, symptomatic anemia (iron deficiency and cancer) but no weight loss yet. He has a good performance status. Recommendation: #1 Started multimodality approach December 16, 2017 that include preop concomitant chemoradiation followed by definitive surgery with an intent to cure. Continue with concomitant weekly carbotaxol with radiation therapy today he will be monitored on a weekly basis during this phase. #2 nausea and weight loss noted, reviewed antiemetic regimen, diet and supplement. #2 received IV iron for iron deficiency anemia and improved. Patient was seen was his impression and plan reviewed Medications: Prescriptions This Visit Medication Instructions Recorded Lidocaine/Prilocaine 30 gm TP DAILY PRN PRN #1 cream..g. 12/04/17 [Lidocaine-Prilocaine Cream] Primary Care Provider: Jd Rosenthal DO Referring Provider: Jd Rosenthal DO 12/23/17 1004 <Electronically signed by Aj Andrews MD> Date Aj Cartagenaignmoises Signature: Date (if applicable) CC: CBC W/DIFF, AUTOMATED Collected: 12/23/2017 Status: F Source: [place] 9:04 AM [facility] REPOSITORY TYPE CODE TESTS RESULT OUT OF RANGE REFERENCE UNITS LAB L100.1000 4.4-11.0 K/mm3 Normal WBC 4.9 LAB L100.1200 4.6-6.2 M/mm3 Low RBC 4.47 LAB L100.1300 13.0-16.5 g/dl Low HGB 11.1 LAB L100.1400 40-54 % Low HCT 36.5 LAB L100.1500 80-94 fL Normal MCV 81.7 LAB L100.1600 27.0-32.0 pg Low MCH 24.8 LAB L100.1700 32-36 g/gl Low MCHC 30.4 LAB L100.1810 11.6-14.6 % High RDW CV 21.6 LAB L100.1820 35.1-43.9 fl High RDW SD 63.8 LAB L100.1900 150-450 K/mm3 Normal PLT 150 LAB L100.2000 6.2-12.0 fl Normal MPV 9.2 LAB L100.2100 47-70 % High NEUT% 85.1 LAB L100.2200 19-41 % Low LY% 9.2 LAB L100.2300 0-10 % Normal MONO% 3.1 LAB L100.2400 0-5 % Normal EO% 1.8 LAB L100.2500 0-1 % Normal BASO% 0.4 LAB L100.2550 0.0-0.9 % Normal IM GRAN % 0.400 Result Comment: IG% - Immature Granulocytes (promyelocytes, myelocytes and metamyelocytes) > 1% indicates that a LEFT SHIFT is Present. LAB L100.2620 2.0-7.7 X10 3/uL Normal Absolute Neut 4.2 LAB L100.2720 0.83-4.51 X10 3/ul Low Absolute Lymph 0.45 LAB L100.4500 Normal SMEAR COMMENT SCANNED Result Comment: LYMPHOPENIA NOTED LAB L100.7300 Normal ANISO 2+ Performed By: #### L100.0100, L500.4050 #### [facility] [address] [place], [address] COMPREHENSIVE METABOLIC Collected: 12/23/2017 Status: F Source: [place] [facility] 9:04 AM [facility] REPOSITORY Order Comment: Reason for Laboratory Test Chemotherapy TYPE CODE TESTS RESULT OUT OF RANGE REFERENCE UNITS LAB L501.0100 74-106 mg/dL High GLU 140 Result Comment: Fasting Glucose result greater than or equal to 126 mg/dL suggests DIABETES MELLITUS per A.D.A. criteria. Please note revised GLUCOSE reference range effective 2017. LAB L501.1000 7-18 mg/dL Normal BUN 15 LAB L501.1100 0.70-1.30 mg/dL Normal CREAT,SERUM 1.00 Result Comment: The validity of the calculated GFR AND GFRAA in patients over 70 years has not been determined. Clinical correlation is essential. LAB L501.1110 >60 mL/min Normal EST GFR 82 Result Comment: Non- GFR Calc LAB L501.1115 >60 mL/min Normal EST GFR - AA 99 Result Comment: GFR Calc LAB L501.1255 ml/min Normal Estimated CRCL 90.53 LAB L501.1300 10-20 RATIO Normal BUN/CRE 15.0 LAB L501.1500 6.4-8. g/dL Normal 2 T PROT 6.7 LAB L501.1800 3.2-5. g/dL Normal 0 ALB 3.6 LAB L501.1950 2.2-4. g/dL Normal 2 GLOB 3.1 LAB L501.2000 0.9-2. RATIO Normal 4 A/G 1.2 LAB L501.2200 8.5-10 mg/dL Low .1 CA 8.4 LAB L501.4100 15-37 U/L Normal AST 19 LAB L501.4305 45-117 U/L Normal ALK P 54 LAB L501.4405 16-61 U/L Normal ALT 21 LAB L501.4600 0.20-1 mg/dL Normal .00 T BILI 0.40 LAB L501.5300 136-14 mmol/L Normal 5 NA 137 LAB L501.5600 3.5-5. mmol/L Normal 1 K 4.0 LAB L501.5900 98-107 mmol/L Normal CL 103 LAB L501.6100 21.0-3 mmol/L Normal 2.0 CO2 28.0 LAB L501.6200 5-15 Normal GAP 6 Performed By: #### L100.0100, L500.4050 #### [facility] [address] [place], [address] RADIATION ONCOLOGY Observed: 12/17/2017 Status: F Source: [place] VISIT 9:13 AM [facility] REPOSITORY [facility] [address] 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 Plan was made to complete neoadjuvant chemoradiation therapy consisting of 4500 cGy in 25 fractions with a simultaneous integrated boost delivering 5000 cGy in 25 fractions to the areas of gross disease, he is receiving concurrent carbo/Taxol. Surgery will be completed at [facility] Treatment Data: Treatment Site: Distal Esophagus Current total dose/Total dose planned: 400 cGy / 5000 cGy Fraction number: Chemotherapy: Weekly Carbo/Taxol Subjective: Tolerating radiation therapy well without difficulty Swallowing: no odynophagia, mild dysphagia Nutrition/Diet: normal diet without restriction Weight: Stable Nausea/vomiting: none, taking zofran pre-tx Reflux: mild, takes occasional tums Height/Weight/BMI: Height: 6 ft Weight: at sim: 275 lbs (12/17/17: 275.8 lbs, Vital Signs Temperature 97.9 F 12/17/17 08:50 Temperature Source Oral 12/17/17 08:50 Pulse Rate 76 12/17/17 08:50 Respiratory Rate 16 12/17/17 08:50 Objective: Gen: NAD Resp: CTAB, no w/r/r Skin: no erythema Assessment: Tolerating radiation therapy well overall. All treatment related imaging reviewed and approved Plan: Continue treatment as planned Discussed potential toxicity and management Rx for Omeprazole Follow up next week or sooner if needed Thank you for allowing me to participate in the management and care of your patient. If I may answer any questions in the interim, please do not hesitate to contact me at any time. Roslyn Powell DO, MS Software Support Technician, Department of Radiation Oncology [facility] 12/17/17912 <Electronically signed by Roslyn Powell DO> Date Roslyn Powell DO Cosigner Signature: Date (if applicable) CC: ONCOLOGY VISIT REPORT Observed: 12/16/2017 Status: F Source: [place] 10:11 AM [facility] REPOSITORY [facility] [address] [place], [place] [address] [address] OFFICE VISIT Date of Service: 12/16/17 1004 MR#: [id number] Acct: [id number] Name: EDUARDO GOMEZ Rep #: [id number] : 1960 From: Aj Andrews MD Age/Sex: 57/M Location: ONC Status: Signed - Problem List (1) Esophagus cancer Status: Acute Qualifiers: Malignant neoplasm of esophagus location: lower third (2) Iron deficiency anemia Status: Chronic Qualifiers: Iron deficiency anemia type: other iron deficiency Qualified Code(s): D50.8 - Other iron deficiency anemias (3) Anemia Status: Chronic (4) Dysphagia Status: Acute Qualifiers: - Date of Service Date of Service:: 12/16/17 - Chief Complaint Esophageal cancer - History of Present Illness Patient is a 57-year-old male who presented with progressive painless dysphagia and fatigue due to anemia. No weight loss, no nausea or vomiting, no melena. EGD November 18, 2017 showed a malignant appearing tumor at the e.g. junction involving the very distal esophagus and cardia. Evidence of recent coffee ground material consistent with ulceration and low-grade bleeding. Biopsie MICROSCOPIC DIAGNOSIS A. Antral biopsy: Mild gastritis. B. Antral mass, biopsy: Mild gastritis. Negative for malignancy. C. 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 Chronic active gastritis. A few lymphoid aggregate formations, favor benign. D. 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 CT scan chest November 18, 2017: IMPRESSION: 1.5 cm x 1.4 cm x 2.8 cm nodular density in the right lateral wall of the distal esophagus at the level of the gastroesophageal junction with the evidence of circumferential wall thickening of the distal esophagus. CT scan abdomen November 18, 2017: IMPRESSION: Nodules seen along the right lateral wall of the distal esophagus with circumferential wall thickening of the gastroesophageal junction as described. Punctate calcification in the lower pole calyx of the left kidney. PET/CT November 24, 2017: MPRESSION: 1. ABNORMAL EXAMINATION INDICATIVE OF MALIGNANT VIABLE NEOPLASM. 2. Increased radiopharmaceutical concentration defined in the distal esophagus fulfills quantitative criteria for viable neoplasm. 3. The subcarinal mediastinal hypermetabolic focus fulfills borderline quantitative criteria for viable neoplasm. (Nicolasa et al, Journal of Clinical Oncology 16:2142, 1998). 4. Homogenous increased glucose metabolism manifest in the visualized appendicular-axial skeletal structures, in the absence of chemotherapeutic intervention and marrow stimulation, is consistent with the pattern associated with hyperplasia of the hematopoietic marrow. (Moiz, AJR 180:669, 2003). 5. No other quantitatively significant hypermetabolic abnormalities are noted. There is no definitive scintigraphic evidence of distant metastatic disease. - Past Medical/Social History Past Medical History Cancer: Esophageal cancer Social History Social History: No changes Smoking Status Never smoker Review of Systems Constitutional:: Denies: Fever, Sweats, Weight loss, Appetite change, Chills Cardiovascular:: Denies: Chest pain, Palpitations, Dyspnea on exertion, Orthopnea, PND, Shortness of breath Respiratory: Denies: Cough, Hemoptysis, Shortness of Breath, Wheezing Gastrointestinal:: Reports: Dysphagia - Painless to solids. Denies: Abdominal pain, Nausea, Vomiting, Diarrhea, Constipation, Hematochezia Genitourinary: Denies: Dysuria, Hematuria, 15, Flank pain Musculoskeletal:: Denies: Back pain, Myalgia, Arthralgia Skin: Denies: Rash, Skin Changes, Wounds Neurological:: Denies: Headache, Dizziness, Visual changes, Tinnitus, Hearing loss Psychiatric: Denies: Anxiety, Depression, Homicidal Ideations, Suicidal Ideations Vital Signs Height 144 ft 8 in Weight: 125.282 kg Weight in Pounds 276.2 lbs BMI 37.5 Pulse Ox 98 - Physical Exam General: Alert, Oriented x3, No apparent distress, - - Weight ECOG 0 HEENT: Atraumatic, PERRLA, EOMI, Normocephalic Oropharynx:: Dry mucosa Neck:: Supple, Trachea midline, - - Port okay. Negative for: JVD, bilateral Cardiac:: Regular rate, Regular rhythm, Normal S1, Normal S2. Negative for: Murmur Lungs: Clear to auscultation, Excusion symmetrical. Negative for: Rhonchi, Wheezes Abdomen:: Soft, Non-tender, Non-distended. Negative for: Hepatosplenomegaly Extremities:: Negative for: Cyanosis, Edema Neurological: Neuro grossly intact Skin:: Negative for: Lesions, Rash, Petechiae, Ecchymosis Psychiatric:: Appropriate affect, Euthymic Lymphatics:: Negative for: Cervical lymphadenopathy, Supraclavicular lymphadenopathy Laboratory Data: Laboratory Tests WBC 4.7 (4.4-11.0) K/mm3 RBC 4.43 L (4.6-6.2) M/mm3 Hgb 10.9 L (13.0-16.5) g/dl Assessment and Plan 57-year-old male with GE junction adenocarcinoma. Patient presented with painless dysphagia, symptomatic anemia (iron deficiency and cancer) but no weight loss yet. He has a good performance status. Recommendation: #1 I reviewed the most recent NCCN guidelines and advised a multimodality approach that will include preop concomitant chemoradiation followed by definitive surgery with an intent to cure. Patient was seen by thoracic surgery at [facility] (Dr. Oshea) and radiation oncology at [facility] (Dr. Powell) and will start his first phase of treatment with concomitant weekly carbotaxol with radiation therapy today he will be monitored on a weekly basis during this phase. #2 received IV iron for iron deficiency anemia and improved. Patient was seen was his impression and plan reviewed Medications: Prescriptions This Visit Medication Instructions Recorded Primary Care Provider: Jd Rosenthal DO Referring Provider: Jd Rosenthal DO 12/16/17 1011 <Electronically signed by Aj Andrews MD> Date Aj Andrews MD Cosigner Signature: Date (if applicable) CC: Jd Rosenthal DO CBC W/DIFF, AUTOMATED Collected: 12/16/2017 Status: F Source: [place] 9:07 AM [facility] REPOSITORY Order Comment: Reason for Laboratory Test . TYPE CODE TESTS RESULT OUT OF RANGE REFERENCE UNITS LAB L100.1000 4.4-11.0 K/mm3 Normal WBC 4.7 LAB L100.1200 4.6-6.2 M/mm3 Low RBC 4.43 LAB L100.1300 13.0-16.5 g/dl Low HGB 10.9 LAB L100.1400 40-54 % Low HCT 36.2 LAB L100.1500 80-94 fL Normal MCV 81.7 LAB L100.1600 27.0-32.0 pg Low MCH 24.6 LAB L100.1700 32-36 g/gl Low MCHC 30.1 LAB L100.1810 11.6-14.6 % High RDW CV 21.7 LAB L100.1820 35.1-43.9 fl High RDW SD 64.4 LAB L100.1900 150-450 K/mm3 Normal PLT 178 LAB L100.2000 6.2-12.0 fl Normal MPV 9.4 LAB L100.2100 47-70 % High NEUT% 77.5 LAB L100.2200 19-41 % Low LY% 14.3 LAB L100.2300 0-10 % Normal MONO% 6.9 LAB L100.2400 0-5 % Normal EO% 1.1 LAB L100.2500 0-1 % Normal BASO% 0.2 LAB L100.2550 0.0-0.9 % Normal IM GRAN % 0.000 Result Comment: IG% - Immature Granulocytes (promyelocytes, myelocytes and metamyelocytes) > 1% indicates that a LEFT SHIFT is Present. LAB L100.2620 2.0-7.7 X10 3/uL Normal Absolute Neut 3.6 LAB L100.2720 0.83-4.51 X10 3/ul Low Absolute Lymph 0.67 LAB L100.4500 SMEAR Normal COMMENT Result Comment: ANISOCYTOSIS 1+ Performed By: #### L100.0100, L500.4050 #### [facility] [address] [place], [address] COMPREHENSIVE METABOLIC Collected: 12/16/2017 Status: F Source: [facility] 9:07 AM [facility] REPOSITORY Order Comment: Reason for Laboratory Test . TYPE CODE TESTS RESULT OUT OF RANGE REFERENCE UNITS LAB L501.0100 74-106 mg/dL High GLU 223 Result Comment: Glucose result greater than or equal to 200 mg/dL suggests DIABETES MELLITUS per A.D.A. criteria. Please note revised GLUCOSE reference range effective 2017. LAB L501.1000 7-18 mg/dL Normal BUN 16 LAB L501.1100 0.70-1.30 mg/dL Normal CREAT,SERUM 1.08 Result Comment: The validity of the calculated GFR AND GFRAA in patients over 70 years has not been determined. Clinical correlation is essential. LAB L501.1110 >60 mL/min Normal EST GFR 75 Result Comment: Non- GFR Calc LAB L501.1115 >60 mL/min Normal EST GFR - AA 91 Result Comment: GFR Calc LAB L501.1255 ml/min Normal Estimated CRCL 135.34 LAB L501.1300 10-20 RATIO BUN/CRE Normal 14.8 LAB L501.1500 6.4-8. g/dL 2 T PROT Normal 7.0 LAB L501.1800 3.2-5. g/dL 0 ALB Normal 3.7 LAB L501.1950 2.2-4. g/dL 2 GLOB Normal 3.3 LAB L501.2000 0.9-2. RATIO 4 A/G Normal 1.1 LAB L501.2200 8.5-10 mg/dL Low .1 CA 8.4 LAB L501.4100 15-37 U/L AST Normal 15 LAB L501.4305 45-117 U/L ALK P Normal 60 LAB L501.4405 16-61 U/L ALT Normal 24 LAB L501.4600 0.20-1 mg/dL .00 T BILI Normal 0.40 LAB L501.5300 136-14 mmol/L 5 NA Normal 139 LAB L501.5600 3.5-5. mmol/L 1 K Normal 3.9 LAB L501.5900 98-107 mmol/L CL Normal 104 LAB L501.6100 21.0-3 mmol/L 2.0 CO2 Normal 27.0 LAB L501.6200 5-15 GAP Normal 8 Performed By: #### L100.0100, L500.4050 #### [facility] [address] [facility] [place], [address] DISCHARGE INSTRUCTION Observed: 12/08/2017 Status: F Source: [place] 4:48 PM [facility] REPOSITORY [facility] Medical Records Department [address] [place] [address] Instructions for Home/Discharge Instructions 12/08/17 1214 MR#: [id number] Acct: [id number] Name: EDUARDO GOMEZ Rep #: [id number] : 1960 57 From: Mckenna Garcia MD PCP: Jd Rosenthal DO Status[place] [facility] [place] Diet: Light diet - advance as tolerated - if you have questions about your diet instructions, please talk to you doctor. Discharge Activity: May Not Drive - for 1 week or while taking narcotic pain medicine. May shower in (days): 1 Lifting Restrictions: 10 pounds Call your doctor if your incision/area has: Continuous Slow Oozing, Sudden Increased Bleeding, Increased Pain/ Swelling, Increased Redness, Foul Smelling Discharge Call your doctor if you observe: Fever of 101 or Higher Suture Line Care: Avoid Pulling/Pushing, Avoid Pinching/Bending Additional Dressing/Incision Instructions:: Change or remove dressing in 4 days. Leave steri-strips in place for 1 week. Allergies/Adverse Reactions: Allergies hydrocodone [From Vicodin] Allergy (Severe, Verified 12/04/17 14:13) Hallucination Penicillins Allergy (Severe, Verified 12/04/17 14:13) Rash Sulfa (Sulfonamide Antibiotics) Allergy (Severe, Verified 12/04/17 14:13) Rash Medications to take at Discharge Multivitamin [Multiple Vitamins] 1 ea PO DAILY 11/18/17 alprazolam 0.5 mg tablet 0.5 mg PO BID-TID PRN #30 tab 11/18/17 atenolol 50 mg tablet 50 mg PO DAILY #90 tab 11/18/17 ferrous sulfate 325 mg (65 mg iron) tablet,delayed release 325 mg PO DAILY #60 tab 11/19/17 Lidocaine/Prilocaine [Lidocaine-Prilocaine Cream] 30 gm TP DAILY PRN PRN #1 cream..g. 12/04/17 Ondansetron [Zofran Odt] 4 mg PO Q8H PRN 30 Days #30 tab.rapdis 12/04/17 Ascorbic Acid [Vitamin C] 500 mg PO DAILY 12/05/17 Oxycodone HCl/Acetaminophen [Percocet 5/325] 1 tablet PO Q6H PRN PRN 3 Days #8 tablet 12/08/17 The following prescriptions were given: Oxycodone HCl/Acetaminophen [Percocet 5/325] 1 tablet PO Q6H PRN PRN 3 Days #8 tablet PRN Reason: Pain Primary Care Physician: Jd Rosenthal DO [Primary Care Provider] - Test Results: Test results from this visit will be discussed in further detail at your follow-up appointment, if applicable. Please Follow Up With: Mckenna Garcia MD - [phone] When: Call to make an appointment to be seen in about 10 days. 12/08/17 5520 <Electronically signed by Mckenna Garcia MD> Date Mckenna Garcia MD CC: Jd Rosenthal DO OPERATIVE REPORT Observed: 12/08/2017 Status: F Source: [place] 1:07 PM [facility] REPOSITORY [facility] Medical Records Department [address] [place] [address] Operative Report 12/08/17 1303 MR#: [id number] Acct: [id number] Name: EDUARDO GOMEZ Rep #: [id number] : 1960 57 From: Mckenna Garcia MD PCP: Jd Rosenthal DO Status: REG [facility] [place]: [place] [address] Problem List (1) Esophagus cancer Status: Acute Qualifiers: Malignant neoplasm of esophagus location: lower third Report of Operation Date of Procedure: 12/08/17 Pre-Operative Diagnosis: Distal esophageal cancer Post-Operative Diagnosis: Same Surgery/Procedure Performed:: Right internal jugular 6 Greek PowerPort placement Description of Surgical Findings:: Timeout and informed consent was obtained. 57-year-old gentleman was taken the operating place upon the table. He underwent monitored anesthesia care. Clindamycin 900 g were given intravenously preoperatively because of the patient's penicillin allergy. I elected to use a 6 Greek PowerPort. Reference #[id number]. Lot number [id number]. Expiry date 07/08/2019. The right neck and chest were sterilely prepped draped. 1% lidocaine mixed 50-50 with 0.5% Marcaine was used as local anesthetic. Throughout the procedure total 16 cc was used. Under ultrasound guidance I initially placed a right internal jugular micropuncture needle micropuncture wire the wire did not advance so then I used the introducing needle with the kit. I advanced an 035 J-wire. Fluoroscopy demonstrated good positioning. I instituted a local down upon the right chest wall. Then a transverse incision was created. Using electrocautery I made a subcutaneous pocket. The tubing was then connected from the chest to the neck site. Sheath dilator was placed over the wire. The dilator and wire removed. The catheter was advanced through the sheath. The sheath was split. Because of the patient's body habitus I could not clearly see the tubing and so I used 2 cc of Isovue. That allowed me to see the tip of the catheter in position at the SVC atrial junction. I amputated the catheter connected to the port secured it with a port attachment device placed the port within the pocket with 2-0 silk. Upon aspiration however there appeared to be some kinking. So I released the port reinspected it there had been a small kinking of the tubing IN IN did that. I trimmed the tubing slight amount readjusted with new attachment device replaced the port in the pocket secured it there with one simple suture of 2-0 silk. The port at this time accessed and aspirated and flushed very easily. It was flushed with saline then 2-1/2 cc of heparinized saline. The port site was closed with interrupted 3-0 Vicryl subdermal stitches. The neck was closed with interrupted 5-0 Vicryl subdermal stitches. Steri-Strips Telfa and OpSite dressings applied. Sponge and instrument and needle counts were reported the surgeon be correct. Blood loss was minimal. He tolerated procedure well. He was taken to the recovery area in satisfactory condition without apparent complication. Stat portable chest x-ray is pending. No apparent complication. Specimens none. Drains none. Blood loss minimal. Mckenna Garcia M.D., F.A.C.S. Type of Anesthesia:: Local MAC Anesthesiologist: Amena Strickland 12/08/17 1307 <Electronically signed by Mckenna Garcia MD> Date Mckenna Garcia MD CC: Jd Rosenthal DO; Mckenna Garcia MD Signed CHEST 1 VIEW Observed: 12/08/2017 Status: F Source: [place] (PORTABLE) 12:15 PM [facility] REPOSITORY [facility] Imaging Services [address] [place] [id number] Chest 1 View (Portable) MR#: [id number] Acct: [id number] Name: EDUARDO GOMEZ Rep #: [id number] : 1960 M 57 From: Luis Miguel Bennett MD PCP: Jd Rosenthal DO Status: [facility] Study: Chest 1 View (Portable) Date of Exam: 12/08/17 Exam# [id number] Ordering Dr: Mckenna Garcia MD STUDY: X-RAY CHEST REASON FOR EXAM: Male, 57 years old. Post port placement. TECHNIQUE: Single AP portable view of the chest. COMPARISON: None. FINDINGS: A right-sided portacatheter has been placed. The tip is in the proximal portion of the superior vena cava. The lungs are clear and expanded. There is no demonstrated pleural abnormality. Normal size heart. Normal mediastinum and osmin. Normal visualized pulmonary arteries. Normal visualized aortic arch and descending thoracic aorta. There are diffuse degenerative changes of the visualized thoracic spine. Normal visualized ribs, clavicles, and shoulders. There is no demonstrated abnormality of the visualized soft tissue structures of the upper abdomen. RAD/Chest 1 View (Portable) IMPRESSION: The tip of the manju catheter is in the proximal portion of the superior vena cava. Electronically Signed: Luis Miguel Bennett MD at 14:44 EDT Tel [phone], Service support , CC: Jd Rosenthal DO; Mckenna Garcia MD Network Admin: Signed 12 LEAD ELECTROCARDIOGRAM Observed: 12/05/2017 Status: F Source: [place] 1:27 PM [facility] REPOSITORY [facility] Cardiovascular Services [address] [place] [id number] 12 Lead EKG 12/04/17 0829 MR#: [id number] Acct: [id number] Name: EDUARDO GOMEZ Rep #: [id number] : 1960 57 From: Edin Grace MD Attending Dr: Mckenna Garcia MD Status: REG CLI Ordering Dr: Mckenna Garcia MD Date: 12/04/17 Location: LAB Sex: M C Admitted: Test Reason : PREOP Blood Pressure : / mmHG Vent. Rate : 070 BPM Atrial Rate : 070 BPM P-R Int : 146 ms QRS Dur : 136 ms QT Int : 390 ms P-R-T Axes : 055 -35 042 degrees QTc Int : 421 ms Normal sinus rhythm Left axis deviation Right bundle branch block Left ventricular hypertrophy with QRS widening Abnormal ECG Confirmed by EDIN GRACE MD ([id number]), design editor JOSY GONZALES ([id number]) on 12/05/2017 1:27:04 PM Referred By: Mckenna Garcia Confirmed By:EDIN GRACE MD 12/05/17 1327 Date Edin Grace MD CC: Jd Rosenthal DO; Mckenna Garcia MD Signed ONCOLOGY VISIT REPORT Observed: 12/04/2017 Status: F Source: [place] 3:49 PM [facility] Oncology [address] [place] [address] OFFICE VISIT Date of Service: 12/04/17 1413 MR#: [id number] Acct: [id number] Name: EDUARDO GOMEZ Rep #: [id number] : 1960 From: Zahira CÁRDENAS Age/Sex: 57/M Location: ONC Status: Signed with Addenda ADDENDUM by Zahira Mera NP on 12/04/17 at 1549 Code Visit Patient to receive influenza vac today 12/04/17 1549 <Electronically signed by Zahira CÁRDENAS> Date Zahira Mera cc: * Signed Subjective - Date of Service Date of Service:: 12/04/17 - Chief Complaint Chemotherapy Education-Carboplatin/Taxol - History of Present Illness Patient is a 57-year-old male who presented with progressive painless dysphagia and fatigue due to anemia. No weight loss, no nausea or vomiting, no melena. EGD November 18, 2017 showed a malignant appearing tumor at the e.g. junction involving the very distal esophagus and cardia. Evidence of recent coffee ground material consistent with ulceration and low-grade bleeding. Biopsie MICROSCOPIC DIAGNOSIS A. Antral biopsy: Mild gastritis. B. Antral mass, biopsy: Mild gastritis. Negative for malignancy. C. 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 Chronic active gastritis. A few lymphoid aggregate formations, favor benign. D. 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 CT scan chest November 18, 2017: IMPRESSION: 1.5 cm x 1.4 cm x 2.8 cm nodular density in the right lateral wall of the distal esophagus at the level of the gastroesophageal junction with the evidence of circumferential wall thickening of the distal esophagus. CT scan abdomen November 18, 2017: IMPRESSION: Nodules seen along the right lateral wall of the distal esophagus with circumferential wall thickening of the gastroesophageal junction as described. Punctate calcification in the lower pole calyx of the left kidney. - Interval History The patient is presenting to clinic accompanied by spouse for chemotherapy education. Tentatively port placement is scheduled for FridayDecember [address] Garcia. - Past Medical/Social History Past Medical History Cancer: Esophageal cancer Social History Social History: No changes Smoking Status Never smoker Review of Systems Constitutional:: Reports: Appetite change. Denies: Fever, Sweats, Weight loss, Chills Cardiovascular:: Denies: Chest pain, Palpitations, Dyspnea on exertion, Orthopnea, PND, Shortness of breath Respiratory: Denies: Cough, Hemoptysis, Shortness of Breath, Wheezing Gastrointestinal:: Denies: Abdominal pain, Nausea, Vomiting, Diarrhea, Constipation, Melena, Hematochezia Genitourinary: Denies: Dysuria, Hematuria, 15, Flank pain Musculoskeletal:: Denies: Back pain, Myalgia, Arthralgia Skin: Denies: Rash, Skin Changes, Wounds Neurological:: Reports: Numbness - right foot chronic he attributes to h/o varicose vein surgery, Tingling. 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 Patient presents with painless dysphagia, symptomatic anemia (iron deficiency and cancer). 1. Adenocarcinoma of the GE junction- A multimodality approach that will include preop concomitant chemoradiation followed by definitive surgery with an intent to cure has been advised. The patient has been thoroughly educated to risks/benefits associated with chemotherapy, carboplatin Taxol. Specifically, he has been educated to potential side effects, recommendations for symptom management, and circumstances in which he should contact provider immediately, such as the development of any signs/symptoms of infection inclusive of temperature > 100.4. Encouraged to go directly to ED should fever occur outside normal clinic hours. He has been provided written educational information and after hours contact information and prescriptions for prn antiemetics/EMLA cream. Tentatively port placement is scheduled for December 08 under the care of Dr. Garcia. Greater than 50% of this one hour visit was spent in counseling and a significant amount of time was allotted for questions. All the patient's concerns were addressed to his satisfaction and he is agreeable to proceed. Tentatively, he will commence with cycle 1 on 12/10/2017. Scheduled for surgical consultation at [facility] was Dr. Oshea 12/09/17. 2. Anemia, iron deficiency- Received Venofer 300 mg x 3 doses. Zahira Mera, MSN, SILK CREPE MACHINE OPERATOR, AOCNP Primary Care Provider: Jd Rosenthal DO Referring Provider: Jd Rosenthal DO - Problem List (1) Esophagus cancer Status: Acute Qualifiers: Malignant neoplasm of esophagus location: lower third Qualified Code(s): C15.5 - Malignant neoplasm of lower third of esophagus (2) Iron deficiency anemia Status: Chronic Qualifiers: Iron deficiency anemia type: other iron deficiency Qualified Code(s): D50.8 - Other iron deficiency anemias (3) Educational circumstance Status: Acute 12/04/17 1549 <Electronically signed by Zahira CÁRDENAS> Date Zahira CÁRDENAS Cosigner Signature: Date (if applicable) CC: CBC-COMPLETE BLOOD CNT Collected: 12/04/2017 Status: F Source: [place] NO DIFF 8:16 AM [facility] REPOSITORY TYPE CODE TESTS RESULT OUT OF RANGE REFERENCE UNITS LAB L100.1000 4.4-11.0 K/mm3 Normal WBC 6.9 LAB L100.1200 4.6-6.2 M/mm3 Low RBC 4.43 LAB L100.1300 13.0-16.5 g/dl Low HGB 10.5 LAB L100.1400 40-54 % Low HCT 35.1 LAB L100.1500 80-94 fL Low MCV 79.2 LAB L100.1600 27.0-32.0 pg Low MCH 23.7 LAB L100.1700 32-36 g/gl Low MCHC 29.9 LAB L100.1810 11.6-14.6 % High RDW CV 20.6 LAB L100.1820 35.1-43.9 fl High RDW SD 53.7 LAB L100.1900 150-450 K/mm3 Normal PLT 250 LAB L100.2000 6.2-12.0 fl Normal MPV 11.1 Performed By: #### L100.0500, L100.4500 #### [facility] [address] [place], [place], [id number] DIFFERENTIAL COMMENT Collected: 12/04/2017 Status: F Source: [place] 8:16 AM [facility] REPOSITORY TYPE CODE TESTS RESULT OUT OF RANGE REFERENCE UNITS LAB L100.4500 Normal SMEAR COMMENT SCANNED Result Comment: RARE HYPOCHROMIA 1+ ANISOCYTOSIS Performed By: #### L100.0500, L100.4500 #### [facility] [address] [place], [place], [address] SURGERY VISIT REPORT Observed: 12/04/2017 Status: F Source: [place] 7:50 AM [facility] REPOSITORY [facility] [address] [place], [place] [address] OFFICE VISIT Date of Service: 12/04/17 MR#: [id number] Acct: [id number] Name: EDUARDO GOMEZ Rep #: [id number] : 1960 Provider: Mckenna Garcia MD Age/Sex: 57/M Location: [facility] Status: Signed Intake Vital Signs12/04/17 Height 6 ft 12/04/17 Weight: 275 lb 1 oz 12/04/17 Body Mass Index (BMI) 37.3 12/04/17 Blood Pressure 135/79 H Intake Visit Reasons: Port Placement Consult Chief Complaint: port consult Casino Controller Required: No Is patient in pain?: No Allergies acetaminophen [From Vicodin] Allergy (Unknown, Verified 12/04/17 07:44) Hallucination hydrocodone [From Vicodin] Allergy (Unknown, Verified 12/04/17 07:44) Hallucination Penicillins Allergy (Unknown, Verified 12/04/17 07:44) Unknown Sulfa (Sulfonamide Antibiotics) Allergy (Unknown, Verified 12/04/17 07:44) Unknown Medications meloxicam 15 mg tablet 15 mg PO BID tab 10/31/17 [History Confirmed 12/04/17] Ascorbic Acid [Vitamin C] 500 mg PO DAILY 11/18/17 [History Confirmed 12/04/17] Calcium Carbonate/Vitamin D3 [Calcium 600-Vit D3 200 Tablet] 1 ea PO DAILY 11/18/17 [History Confirmed 12/04/17] Multivitamin [Multiple Vitamins] 1 ea PO DAILY 11/18/17 [History Confirmed 12/04/17] alprazolam 0.5 mg tablet 0.5 mg PO BID-TID PRN #30 tab 11/18/17 [Rx Confirmed 12/04/17] atenolol 50 mg tablet 50 mg PO DAILY #90 tab 11/18/17 [Rx Confirmed 12/04/17] ferrous sulfate 325 mg (65 mg iron) tablet,delayed release 325 mg PO DAILY #60 tab 11/19/17 [Rx Confirmed 12/04/17] [facility] Medical History Esophagus cancer (Acute) Dysphagia (Acute) Psoriasis (Chronic) Hypertension (Chronic) Sleep apnea (Chronic) Esophageal cancer (Acute 11/2017) Arthritis (Acute) Surgical History History of esophagogastroduodenoscopy (EGD) (Acute 11/2017) History of colonoscopy (Acute) History of orthopedic surgery (Acute) History of varicose vein stripping (Acute) Family History Father Pharynx cancer Liver disease Social History Smoking Status: Never smoker alcohol intake: current alcohol intake frequency: holidays/special occasions only substance use type: does not use what type of physical activity do you participate in: walking HPI HPI HPI: EDUARDO GOMEZ, is a 57 M who presents to the office today for surgical consultation for port placement. This is a very nice gentleman who presented to me with esophageal dysphasia. I diagnosed a distal esophageal cancer. He is being cared for by Dr Andrews and so far a metastatic workup is been negative. He also has an upcoming appointment at the [facility] treatment [place] in [facility]. A request has been made to expedite his chemotherapy radiation by placing a port. He is likely a future candidate for esophagectomy. ROS General General: Yes appetite; no weight change, fatigue, colon cancer, breast cancer or weakness Additional Details: Esophageal CA HEENT HEENT: Yes difficulty swallowing; no eye injury, eye surgery, swollen glands or hoarseness Endo Endocrine: No thyroid disease, diabetes mellitus, thyroid cancer, Hair loss, heat intolerance or cold intolerance Skin Skin: Yes rash; no changing moles Additional Details: PSoriasis Breast Breast: Yes breast enlargement; no left breast lump, right breast lump, nipple discharge, breast pain, abnormal mammogram or abnormal US Additional Details: gynecomastia Cardio Cardiovascular: Yes high blood pressure; no murmur, pacemaker, heart disease, atrial fibrillation, heart attack, heart stent, palpitations, shortness of breat with exertion or chest pain Resp Respiratory: No shortness of breath, Yes sleep apnea, No cough, No COPD, No asthma, No emphysema, No wheezing Gastro Gastrointestinal: No abdominal pain, No nausea or vomiting, No diarrhea, No constipation, No blood in stool, No acid reflux, No hemorrhoids, No ulcers, No gallbladder problem, No black,tarry stools Da Hematologic: No blood thinners, No blood disorders, No bleeding, Yes anemia, No blood clots Neuro Neurologic: No weakness Exam Const General: cooperative, healthy appearing Nutritional Appearance: overweight Orientation: alert, awake, oriented x3 HENMT Head: normal to inspection Eyes General: appearance normal, both eyes and all related structures Chest Chest palpation AND inspection: normal inspection of the chest Breast Palpation: No nipple discharge Resp Effort AND Inspection: normal respiratory effort Auscultation: clear to auscultation bilaterally Cardio Rate: regular rate Rhythm: regular rhythm Heart Sounds: no murmurs GI Palpation: soft, no hepatosplenomegaly Skin General: no rashes or lesions noted Neuro Cranial Nerves: CN's II-XI intact bilaterally Extrem General: no clubbing, cyanosis or edema Psych Affect: normal affect Assessment AND Plan Problems 1. Malignant neoplasm of lower third of esophagus C15.5 Plan I am recommending to the patient a right internal jugular port placement I discussed the technique, benefits, risks and alternatives. We will try to expedite his care. He has had an opting to ask and have questions answered. We will contact the [facility] to assure placement of the right IJ correlates with their needs. Mckenna Garcia M.D., F.A.C.S. Coding Level of Care Code Off vis,est,level 2 Diagnoses Malignant neoplasm of lower third of esophagus C15.5 Malignant neoplasm of esophagus location: lower third 12/04/17 0750 <Electronically signed by Mckenna Garcia MD> Date Mckenna Garcia MD Cosigner Signature: Date (if applicable) CC: Jd Rosenthal DO; Aj Andrews MD CONSULTATION Observed: 11/26/2017 Status: F Source: [place] 7:21 AM [facility] REPOSITORY [facility] Medical Records Department [address] [place] [address] Consultation 11/25/17 1323 MR#: [id number] Acct: [id number] Name: EDUARDO GOMEZ [place] Rep #: [id number] : 1960 57 From: Roslyn Powell DO PCP: Jd Rosenthal DO Status: REG RCR Y Location: [facility] Date of Service: 11/25/17 Referring Provider: Dr. 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 History of Present Illness: 11/05/2017: Patient was referred to general surgery due to progressive dysphasia. 11/18/2017: EGD was performed which demonstrated in the very distal esophagus just proximal to the GE junction there appeared to be evidence of submucosal mass with irregularity at the GE junction with evidence of ulceration and reduce bleeding coffee- ground material, this mass seemed to involve at least 50% of the circumference of the GE junction. The GE junction was approximately at 41-42 cm upon the scope entering the stomach immediately there were coffee-ground mucus staining and as the scope was advanced down to the antral area there was subcutaneous submucosal mass approximately 10 cm from the pylorus identified. Biopsies were obtained of the antrum and also the GE junction mass. Biopsy obtained of the esophagus and cardia were consistent with invasive mucinous adenocarcinoma with focal signet ring features. 11/18/2017: CT chest abdomen pelvis was performed which demonstrated evidence for a 1.5 x 1.4 x 2.8 cm nodular density in the right lateral wall of the distal esophagus at the level of the GE junction with evidence of circumferential wall thickening of the distal esophagus. There is multiple or multiple small lymph nodes within the mediastinum which are normal size and morphology most compatible with reactive hyperplasia. There is no evidence of metastatic disease. 11/20/2017: Patient was evaluated by medical oncology who recommended surgical consultation for consideration of treatment of esophageal cancer and PET/CT to complete staging. Also iron profile and iron administration will be completed due to anemia. 11/24/17: PET scan was completed and appears to show evidence for a distal esophageal mass that is PET avid extending into the gastric cardia with no definite evidence of regional adenopathy or distant metastatic disease noted. This has not yet been officially read by radiology, awaiting final read. Radiation Treatment History: No history of previous radiation therapy. No pacemaker or diagnosis of collagen vascular disease. Interval History: Patient presents for initial consultation. He reports that he has had very mild swallowing dysfunction with some dysphasia over the past few months. He believes this happens more intermittently and is not been able to identify certain foods that he is not able to eat or where this happens more often. He reports having a regular diet. He is only lost about 4 pounds in the last week and denies any weight loss prior to this time. He denies ever having complete regurgitation of food and has had no dysphasia to liquids. He denies any nausea or vomiting. He has also had occasional bloating and gassiness which is ongoing. He denies having any acid reflux-like symptoms. He reports occasional mild shortness of breath with exertion and he denies having any cough or hemoptysis. He denies having any hematemesis or melena. He does have some increased fatigue over the last couple of months but is still working full-time. He completes all activities of daily living without any difficulty. Family History (Last Reviewed 11/25/17 @ 11:03 by Destiney Encinas) Father Pharynx cancer Liver disease Medical History (Last Reviewed 11/25/17 @ 11:03 by Destiney Encinas) Dysphagia (Acute) Psoriasis (Chronic) Hypertension (Chronic) Sleep apnea (Chronic) Arthritis (Acute) Surgical History (Last Reviewed 11/25/17 @ 11:03 by Destiney Encinas) History of colonoscopy (Acute) 12/07/12 History of orthopedic surgery (Acute) Bilat Knee Repair History of varicose vein stripping (Acute) Social History - Tobacco Smoking Status Never smoker Smokeless tobacco usage: Former Passive smoke exposure: No Social History - Substance Drug use: No Caffeine use [drinks/day]: 2 Alcohol use: Yes Type of alcohol: beer Comments: socially Social History - Living Arrangements Patients Living Arrangements With Significant Other Home Medications Medication Instructions Recorded meloxicam 15 mg tablet 15 mg PO BID tab 10/31/17 Ascorbic Acid [Vitamin C] 500 mg PO DAILY 11/18/17 Allergy/AdvReac Type Severity Reaction Status Date / Time acetaminophen [From Vicodin] Allergy Unknown Hallucinati Verified 11/25/17 11:03 hydrocodone [From Vicodin] Allergy Unknown Hallucinati Verified 11/25/17 11:03 Health Maintenance Do you regularly see your Yes primary care physician? Date of last colonoscopy: 03/10/11 I have reviewed the medical, surgical, and other pertinent history in details and have updated medication and allergy information in the electronic medical record. Review of Systems: A 12-point review of systems was completed and was negative except for what is noted in the HPI/Interval History and by the nurse. Height/Weight/BMI: Height: 6 ft Weight: 125.373 kg BMI: 37.5 Vital Signs Temperature 99.2 F H 11/25/17 11:04 Temperature Source Oral 11/25/17 11:04 Pulse Rate 65 11/25/17 11:04 Physical Exam: ECO KARNOFSKY SCORE: 90% CONSTITUTIONAL: Well-developed, obese, and in no apparent distress. HEENT: Mucous membranes moist. No evidence of thrush or lesions within the visualized oropharynx or oral cavity. No trismus. Pupils are equal, round, and reactive to light and accommodation. Extraocular movements are intact. Sclerae are anicteric. NECK: Supple,with no thyromegaly, and non-tender. Trachea midline. No cervical or supraclavicular adenopathy noted. CARDIAC: Regular rate and rhythm. Normal S1, S2. No murmurs, rubs, or gallops. PULMONARY/CHEST: Lungs are clear to auscultation and percussion bilaterally. No wheezes, rhonchi, or crackles noted. No increased work of breathing. ABDOMINAL: Abdomen soft, non-tender, non-distended. No hepatomegaly. Normoactive bowel sounds in all four quadrants. No guarding, rebound. BACK: Straight and aligned. No CVA tenderness. Axial skeleton non-tender to percussion. EXTREMITIES: Full range of motion in all four extremities, with normal strength equally and symmetrically. No evidence of edema. No clubbing. Imaging: As per HPI 11/24/17: PET scan was completed and appears to show evidence for a distal esophageal mass that is PET avid extending into the gastric cardia with no definite evidence of regional adenopathy or distant metastatic disease noted. This has not yet been officially read by radiology, awaiting final read. 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 Plan: I had a detailed discussion with the patient regarding the management of locally advanced esophageal adenocarcinoma. After reviewing the PET scan there appears to be evidence of a very distal esophageal PET avid lesion but no other apparent spread of disease, no official report has been completed so will await that from radiology. I reviewed with the patient that prior to initiation of therapy we should determine if he is a surgical candidate and also complete and EUS for further staging to ensure T stage and also biopsy any questionable lymph nodes noted on the exam. I reviewed the general treatment recommendations for distal esophageal cancer which could include endoscopic resection or surgery alone for very early stage lesions but for clinical T1b and above I would recommend neoadjuvant chemoradiation therapy followed by surgical resection. I reviewed with the patient that in general neoadjuvant chemoradiation therapy followed by surgery has been proven to have more optimal outcome and surgical resection alone for locally advanced disease and that radiation with chemotherapy is better than either treatment alone. The patient has already been evaluated by medical oncology and he has been deemed to be an appropriate candidate for chemotherapy. Clinically the patient has very few symptoms and a high KPS and should be able to tolerate tri- modality therapy. I reviewed the logistics of radiation therapy which would include CT simulation with contrast and 4D CT scan, treatment planning, and then likely approximately 5 weeks of radiation therapy with daily treatment delivery and weekly physician visits. The risks, benefits, and alternatives to radiation therapy were discussed in detail and all questions and concerns were addressed. I reviewed the potential acute and chronic toxicities from radiation therapy to the lower esophagus and this would include but is not limited to skin irritation, fatigue, esophagitis, nausea/vomiting, anorexia, weight loss, pneumonitis, pericarditis, esophageal stricture, lung fibrosis and worsening lung function, increased risk of cardiac event (valvular disease, CHF, PR), and secondary cancer. Following our full discussion the patient was in agreement with pursuing neoadjuvant chemoradiation therapy. We will try to have him evaluated by a surgeon at [facility] as soon as possible to ensure he is a surgical candidate and complete EUS. In an effort to prevent further delay I will plan to initiate treatment planning prior to this visit. Thank you for allowing me to participate in the management and care of your patient. If I may answer any questions in the interim, please do not hesitate to contact me at any time. Roslyn Powell DO, MS Software Support Technician, Department of Radiation Oncology [facility] 11/26/17 1066 <Electronically signed by Roslyn Powell DO> Date Roslyn Powell DO Cosigner Signature (if applicable): Date CC: Jd Rosenthal DO; Aj Andrews MD Signed PET/CT TUMOR BASE Observed: 11/24/2017 Status: F Source: [facility] 7:50 AM [facility] REPOSITORY [facility] Imaging Services [address] [place] [id number] PET/CT Tumor Base -Thigh Init MR#: [id number] Acct: [id number] Name: PIETROEDUARDO AN Lissett Rep #: [id number] : 1960 M 57 From: Yahir Barbour DO PCP: Jd Rosenthal DO Status: REG CLI Study: PET/CT Tumor Base -Thigh Init Date of Exam: 11/24/17 Exam# [id number] Ordering Dr: Aj Andrews MD EXAMINATION: FDG PET CT INDICATIONS: A 57-year-old male with 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 COMPARISON EXAMINATION: CT of the chest report dated 11/18/17, CT of the abdomen and pelvis report dated 11/18/17. INDEX LESION SIZE SUV INTERPRETATION Distal esophagus, gastroesophageal junction, gastric cardia 50.9 mm x 41.4 mm (frame 183) 11.0 Fulfills quantitative criteria for viable neoplasm Subcarinal mediastinum 12.6 mm largest (frame 201) 3.3 (max) Fulfills borderline quantitative criteria for viable neoplasm TECHNIQUE: Following the intravenous administration of 15.63 mCi of F-18 deoxyglucose via the left antecubital fossa, multiplanar image acquisitions of the neck, chest, abdomen and pelvis to level of mid thigh, obtained at one hour post radiopharmaceutical administration contemporaneously interpreted with the current CT of the neck, chest, abdomen and pelvis to level of mid thigh, dated 11/24/[address] of the chest report dated 11/18/17, CT of the abdomen and pelvis report dated 11/18/17 reveal: SERUM GLUCOSE LEVEL: 119 mg/dl. HEIGHT: 72 inches. WEIGHT: 275 lbs. FINDINGS: 1. An increase in glucose metabolism is demonstrated in the distribution of the distal esophagus, gastroesophageal junction extending to the gastric cardia. The calculated maximum standard uptake value is 11.0. The maximal axial diameter of the corresponding metabolic, morphologic abnormality on review of CT of the thorax dated 11/24/17 is approximately 50.9 mm (transverse) x 41.4 mm (AP). 2. An increase in FDG concentration appears evident in the subcarinal mediastinum to the left of the midline generating a calculated maximum standard uptake value of 3.3. The maximal axial diameter of the corresponding hypermetabolic soft tissue density on review of CT of the thorax dated 11/24/17 is 12.6 mm (transverse). 3. Normal physiologic distribution of the radiopharmaceutical is apparent in the hepatic (2.8) and splenic parenchyma, both renal units, bladder and visualized intestinal tract. There is uniform distribution of the radiopharmaceutical concentration defined in the visualized cerebellar hemispheres and cerebral cortical structures.? Diffuse intestinal tract activity is noted throughout all four quadrants of the abdominal-pelvic retroperitoneum, mesentery consistent with normal physiologic distribution of the radiopharmaceutical. Homogeneous radiopharmaceutical concentration is apparent in the visualized appendicular-axial skeletal structures. Pertinent CT findings are as follows. CHEST: Bilateral axillary soft tissue densities with fatty hilus formation are non-glucose avid. Subcentimeter additional mediastinal soft tissue is ametabolic. There are no parenchymal densities-nodules noted in the right-left hemithorax demonstrating discernible, quantitatively significant enhanced glucose metabolism. ABDOMEN AND PELVIS: Atherosclerotic calcification is defined in the abdominal aorta without evidence of dilatation, aneurysm formation. Dystrophic calcification manifest within the prostate gland demonstrates no evidence of quantitatively significant enhanced glucose metabolism. Right-left inguinal soft tissue densities with fatty hilus formation reveal no evidence of increased glucose metabolism. SKELETAL: Degenerative changes defined in the cervical, thoracic and lumbar spine demonstrate no evidence for glucose hypermetabolism. PET/PET/CT Tumor Base -Thigh Init IMPRESSION: 1. ABNORMAL EXAMINATION INDICATIVE OF MALIGNANT VIABLE NEOPLASM. 2. Increased radiopharmaceutical concentration defined in the distal esophagus fulfills quantitative criteria for viable neoplasm. 3. The subcarinal mediastinal hypermetabolic focus fulfills borderline quantitative criteria for viable neoplasm. (Nicolasa reyes al, Journal of Clinical Oncology 16:2142, 1998). 4. Homogenous increased glucose metabolism manifest in the visualized appendicular-axial skeletal structures, in the absence of chemotherapeutic intervention and marrow stimulation, is consistent with the pattern associated with hyperplasia of the hematopoietic marrow. (Moiz, AJR 180:669, 2003). 5. No other quantitatively significant hypermetabolic abnormalities are noted. There is no definitive scintigraphic evidence of distant metastatic disease. Electronic Signature Yahir Barbour D.O. Electronically Signed: Yahir Barbour DO at 8:12 EDT Tel , Service support , CC: Jd Rosenthal DO; Aj Andrews MD Network Admin: Signed IRON+IRON BINDING Collected: 11/20/2017 Status: F Source: [facility] 1:22 PM [facility] REPOSITORY Order Comment: Reason for Laboratory Test . TYPE CODE TESTS RESULT OUT OF REFERENCE UNITS RANGE LAB L503.6075 250-450 ug/dL TIBC High 525 LAB L503.6150 65-175 ug/dL Low IRON 23 LAB L503.6250 15.0-55.0 % Low IRON SATURATION 4.4 Performed By: #### L503.6030, L503.6550 #### [facility] [address] [place], [place], [id number] FERRITIN Collected: 11/20/2017 Status: F Source: [place] 1:22 PM [facility] REPOSITORY Order Comment: Reason for Laboratory Test . TYPE CODE TESTS RESULT OUT OF REFERENCE UNITS RANGE LAB L503.6550 26-388 ng/mL Low FERRITIN 6 Performed By: #### L503.6030, L503.6550 #### [facility] [address] [place], [place], [id number] VITAMIN B12 Collected: 11/20/2017 Status: F Source: [place] 1:22 PM [facility] REPOSITORY Order Comment: Reason for Laboratory Test . TYPE CODE TESTS RESULT OUT OF RANGE REFERENCE UNITS LAB L503.0105 211-911 pg/mL Normal Vitamin B12 590 Performed By: #### L503.0105 #### [facility] [address] [place], [address] ONCOLOGY HISTORY AND Observed: 11/20/2017 Status: F Source: [place] PHYSICAL 1:05 PM [facility] REPOSITORY [facility] Medical Records Department [address] [place] [address] History and Physical 11/20/17 1216 MR#: [id number] Acct: [id number] Name: EDUARDO GOMEZ Rep #: [id number] : 1960 57 From: Aj Andrews MD PCP: Jd Rosenthal DO Status: REG RCR Y Location: OMD - Problem List (1) Esophagus cancer Status: Acute (2) Iron deficiency anemia Status: Chronic (3) Anemia Status: Chronic (4) Dysphagia Status: Acute Qualifiers: Subjective Date of Service:: 11/20/17 Chief Complaint: Dysphagia, esophagus cancer History of Present Illness: Patient is a 57-year-old male who presented with progressive painless dysphagia and fatigue due to anemia. No weight loss, no nausea or vomiting, no melena. EGD November 18, 2017 showed a malignant appearing tumor at the e.g. junction involving the very distal esophagus and cardia. Evidence of recent coffee ground material consistent with ulceration and low-grade bleeding. Biopsie MICROSCOPIC DIAGNOSIS A. Antral biopsy: Mild gastritis. B. Antral mass, biopsy: Mild gastritis. Negative for malignancy. C. 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 Chronic active gastritis. A few lymphoid aggregate formations, favor benign. D. 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 CT scan chest November 18, 2017: IMPRESSION: 1.5 cm x 1.4 cm x 2.8 cm nodular density in the right lateral wall of the distal esophagus at the level of the gastroesophageal junction with the evidence of circumferential wall thickening of the distal esophagus. CT scan abdomen November 18, 2017: IMPRESSION: Nodules seen along the right lateral wall of the distal esophagus with circumferential wall thickening of the gastroesophageal junction as described. Punctate calcification in the lower pole calyx of the left kidney. Health History: Past Medical History (Last Updated 11/20/17 @ 12:13 by Destiney Encinas) Dysphagia (Acute) Psoriasis (Chronic) Hypertension (Chronic) Sleep apnea (Chronic) Arthritis (Acute) Past Surgical History (Last Reviewed 11/20/17 @ 12:13 by Destiney Encinas) History of colonoscopy (Acute) History of orthopedic surgery (Acute) History of varicose vein stripping (Acute) Family History (Last Reviewed 11/20/17 @ 12:13 by Destiney Encinas) Father Pharynx cancer Liver disease Allergies/Adverse Reactions: Allergy/AdvReac Type Severity Reaction Status Date / Time acetaminophen [From Vicodin] Allergy Unknown Hallucinati Verified 11/20/17 12:13 hydrocodone [From Vicodin] Allergy Unknown Hallucinati Verified 11/20/17 12:13 Risk Factors Social History Smoking Status Never smoker Tobacco Risk Data: Tobacco Risk Smoking Status Never smoker Type of tobacco: Smokeless tobacco usage: Items/Day: Year started: Years used: Counseled to quit/cut down: Reason for no counseling performed: Reason for no pharmacotherapy: Tobacco use comments: Passive smoke exposure: Substance Risk Drug use: Caffeine use [drinks/day]: Alcohol use: Type of alcohol: Drinks per day: Has patient felt the need to cut down: Has the patient been annoyed by complaints: Has the patient felt guilty about drinking: Has the patient needed an eye marketing administrator in the mornings: Comments: Review of Systems Constitutional:: Reports: Weakness, Fatigue. Denies: Fever, Sweats, Weight loss, Appetite change, Chills Cardiovascular:: Reports: Dyspnea on exertion. Denies: Chest pain, Palpitations, Orthopnea, PND, Shortness of breath Respiratory: Reports: Shortness of breath upon exertion. Denies: Cough, Hemoptysis, Shortness of Breath, Wheezing Gastrointestinal:: Reports: Dysphagia. Denies: Abdominal pain, Nausea, Vomiting, Diarrhea, Constipation, Hematochezia Genitourinary: Denies: Dysuria, Hematuria, 15, Flank pain Musculoskeletal:: Denies: Back pain, Myalgia, Arthralgia Skin: Denies: Rash, Skin Changes, Wounds Neurological:: Denies: Headache, Dizziness, Visual changes, Tinnitus, Hearing loss Psychiatric: Denies: Anxiety, Depression, Homicidal Ideations, Suicidal Ideations - Physical Exam General: Alert, Oriented x3, No apparent distress, - - ECOG 0 till recent diagnosis Obese HEENT: Atraumatic, PERRLA, EOMI, Normocephalic Oropharynx:: Dry mucosa Neck:: Supple, Trachea midline. Negative for: JVD, bilateral Cardiac:: Regular rate, Regular rhythm, Normal S1, Normal S2. Negative for: Murmur Lungs: Clear to auscultation, Excusion symmetrical. Negative for: Rhonchi, Wheezes Abdomen:: Soft, Non-tender, Non-distended. 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 Patient presents with painless dysphagia, symptomatic anemia (iron deficiency and cancer) but no weight loss yet. He has a good performance status. Recommendation: I reviewed the most recent NCCN guidelines and advice a multimodality approach that will include preop concomitant chemoradiation followed by definitive surgery with an intent to cure. 1. Surgical consultation at [facility] was Dr. Oshea. 2. Radiation oncology consultation, [facility] With Dr. Powell. 3. PET CT to complete staging. 4. Iron profile and administer IV iron loading prior to start of treatment. 5. I will defer to Dr. Oshea discretion but very likely and EUS will be advised unless the tumor is very superficial T1a, anticipate and need for central venous access for chemotherapy and a temporary feeding tube (feeding jejunostomy or gastrostomy, defer to surgeons discretion). Patient was seen was his impression and plan discussed Primary Care Provider: Jd Rosenthal DO Referring Provider: Jd Rosenthal DO 11/20/17 0133 <Electronically signed by Aj Andrews MD> Date Aj Andrews MD Cosigner Signature: Date (if applicable) CC: Mckenna Oshea; Jd Rosenthal DO; Aj Andrews MD; Mckenna Garcia MD; Roslyn Powell DO Signed RE-EVALUATION - PT (1) Observed: 11/19/2017 Status: F Source: [place] 6:50 AM [facility] REPOSITORY [facility] [address] [place], [place] [address] Fax REEVALUATION / MEDICARE RECERTIFICATION PHYSICAL THERAPY MR#: [id number] Acct: [id number] Name: EDUARDO GOMEZ Rep #: [id number] : 1960 57 From: Azam Hawkins DPT, OCS, CSCS Referring Dr.: Lui ADAM Status: REG RCR Insurance: [facility] SELF PAY INSURANCE JAIR Wade, It has been my pleasure to treat EDUARDO GOMEZ over the last 9 visits for L hip OA. Please see the progress note below for an update on the physical therapy plan of care! Subjective: Took anti inflammatory this morning. Will see doctor next week. Not sure next week. Pain this week has been 5/10 with transfers. in L groin. No pain at rest. Sleep is OK. HEP at home is stretches. Objective/Function: IR end range to L hip still mildly painful. Transfers adn gait are I but slight L antalgia. Strength in L hip 4/5 abd and ext. Still very tight in quad and hip flexor but no tenderness anteriorly. OVERALL SLIGHTLY BETTER BUT SLOW PROGRESS AND LIKELY DUE TO ANTI INFLAMMATORY IN PATIENT'S MIND. Plan Plan: PATIENT TO F/U WITH DOCTOR NEXT WEEK AND CONTINUE WITH HEP AND F/U THREE WEEKS FOR EX PROGRESSION IF NEEDED(DIPS, SQUATS, SLS). PT TO CALL PRIOR IF WORSENS OR DOCTOR DESIRES SOMETHING DIFFERENT. POOL CAN BE CONSIDERED IF NO OTHER OPTIONS. Goals Goal 1:: Pt feel 100% back to normal with L hip pain and gait Goal Time Frame: 4-6 Weeks Goal Progress: Progressing Goal 2:: Pt I in appropriate ex to minimize future problems Goal Time Frame: 4-6 Weeks Goal Progress: Goal Met Goal 3:: Pt walk with at her normal speed for fitness without pain Goal Time Frame: 4-6 Weeks Goal Progress: Progressing Goal 4:: Transfer out of chair without noticing pain and roll in bed easily. Goal Time Frame: 4-6 Weeks Goal Progress: needs anti inflamm Anticipated Interventions Patient/Client Instruction: Educate patient on: Condition, Plan of Care For the Purpose of:: To decrease pain, To improve muscle performance and motor function, To improve ability of physical actions for home/community/work/leisure Therapeutic Exercise to Include: Strength training, Flexibilty training, Gait and locomotor training, Active ROM For the Purpose of:: To decrease pain, To decrease swelling/inflammation, To increase ROM, To improve performance and independence with ADL's, To improve ability of physical actions for home/community/work/leisure Manual Therapy Techniques to Include: Soft tissue mobilization For the Purpose of:: To improve nutrient delivery to tissue TENS: Yes Thermo therapy (hot pack): Yes For the Purpose of:: To decrease pain Please do not hesitate to contact me at [phone] by phone or if you have questions or concerns regarding this new plan of care! Sincerely, Azam Hawkins, DPT, OC <Electronically signed by Azam Hawkins DPT, OCS, CSCS> 11/19/17 0650 CC: Jd Rosenthal DO; Liu ADAM EB Signed For Medicare only, by signing this I certify the plan of care. Physicians Signature Date CBC W/DIFF, AUTOMATED Collected: 11/18/2017 Status: F Source: [place] 7:40 AM [facility] REPOSITORY TYPE CODE TESTS RESULT OUT OF RANGE REFERENCE UNITS LAB L100.1000 4.4-11.0 K/mm3 Normal WBC 6.1 LAB L100.1200 4.6-6.2 M/mm3 Low RBC 3.33 LAB L100.1300 13.0-16.5 g/dl Low HGB 7.6 LAB L100.1400 40-54 % Low HCT 25.7 LAB L100.1500 80-94 fL Low MCV 77.2 LAB L100.1600 27.0-32.0 pg Low MCH 22.8 LAB L100.1700 32-36 g/gl Low MCHC 29.6 LAB L100.1810 11.6-14.6 % High RDW CV 15.1 LAB L100.1820 35.1-43.9 fl Normal RDW SD 41.4 LAB L100.1900 150-450 K/mm3 Normal PLT 187 LAB L100.2000 6.2-12.0 fl Normal MPV 10.5 LAB L100.2100 47-70 % High NEUT% 71.2 LAB L100.2200 19-41 % Low LY% 16.4 LAB L100.2300 0-10 % High MONO% 10.4 LAB L100.2400 0-5 % Normal EO% 1.5 LAB L100.2500 0-1 % Normal BASO% 0.5 LAB L100.2550 0.0-0.9 % Normal IM GRAN % 0.000 Result Comment: IG% - Immature Granulocytes (promyelocytes, myelocytes and metamyelocytes) > 1% indicates that a LEFT SHIFT is Present. LAB L100.2620 2.0-7.7 X10 3/uL Normal Absolute Neut 4.3 LAB L100.2720 0.83-4.51 X10 3/ul Normal Absolute Lymph 0.99 Performed By: #### L100.0100 #### [facility] [address] [place], [place], [address] COMPREHENSIVE METABOLIC Collected: 11/18/2017 Status: F Source: [facility] 7:40 AM [facility] REPOSITORY TYPE CODE TESTS RESULT OUT OF RANGE REFERENCE UNITS LAB L501.0100 74-106 mg/dL High GLU 109 Result Comment: Fasting Glucose result from 100 to 125 mg/dL suggests IMPAIRED HOMEOSTASIS per A.D.A. criteria. Please note revised GLUCOSE reference range effective 2017. LAB L501.1000 7-18 mg/dL Normal BUN 16 LAB L501.1100 0.70-1.30 mg/dL Normal CREAT,SERUM 1.05 Result Comment: The validity of the calculated GFR AND GFRAA in patients over 70 years has not been determined. Clinical correlation is essential. LAB L501.1110 >60 mL/min Normal EST GFR 78 Result Comment: Non- GFR Calc LAB L501.1115 >60 mL/min Normal EST GFR - AA 94 Result Comment: GFR Calc LAB L501.1255 ml/min Normal Estimated CRCL 86.22 LAB L501.1300 10-20 RATIO Normal BUN/CRE 15.2 LAB L501.1500 6.4-8. g/dL Low 2 T PROT 5.9 LAB L501.1800 3.2-5. g/dL Normal 0 ALB 3.3 LAB L501.1950 2.2-4. g/dL Normal 2 GLOB 2.6 LAB L501.2000 0.9-2. RATIO Normal 4 A/G 1.3 LAB L501.2200 8.5-10 mg/dL Low .1 CA 8.2 LAB L501.4100 15-37 U/L Normal AST 18 LAB L501.4305 45-117 U/L Normal ALK P 55 LAB L501.4405 16-61 U/L Normal ALT 21 LAB L501.4600 0.20-1 mg/dL Normal .00 T BILI 0.50 LAB L501.5300 136-14 mmol/L Normal 5 NA 142 LAB L501.5600 3.5-5. mmol/L Normal 1 K 4.1 LAB L501.5900 98-107 mmol/L High CL 108 LAB L501.6100 21.0-3 mmol/L Normal 2.0 CO2 24.0 LAB L501.6200 5-15 Normal GAP 10 Performed By: #### L500.4050 #### [facility] [address] [place], [place], [address] CARCINOEMBRYONIC ANTIGEN Collected: 11/18/2017 Status: F Source: [place] 7:40 AM [facility] REPOSITORY TYPE CODE TESTS RESULT OUT OF RANGE REFERENCE UNITS LAB L3100.2300 0.0-4.7 ng/mL Normal CEA 2.1 Result Comment: Natalie ECLIA methodology Nonsmokers <3.9 Smokers <5.6 Performed at: - [facility] [address] [id number] Fancy Stitcher: Micah Hauser PhD, Phone: [phone] Performed By: #### L3100.2300 #### [facility] (refer to report for specific site) refer to report for address and phone number OPERATIVE REPORT Observed: 11/18/2017 Status: F Source: [place] 7:28 AM [facility] REPOSITORY [facility] Medical Records Department [address] [place] [address] Operative Report 11/18/17 0720 MR#: [id number] Acct: [id number] Name: EDUARDO GOMEZ Rep #: [id number] : 1960 57 From: Mckenna Garcia MD PCP: Jd Rosenthal DO Status: [place] [facility] [place]: [place] [address] Problem List (1) Dysphagia Status: Acute Qualifiers: Dysphagia type: esophageal phase Report of Operation Date of Procedure: 11/18/17 Pre-Operative Diagnosis: Esophageal dysphagia Post-Operative Diagnosis: Mass of the distal esophagus and cardiac at the e.g. junction with evidence of blood loss and ulceration Surgery/Procedure Performed:: Esophagogastroduodenoscopy with multiple cold forceps biopsies Description of Surgical Findings:: Timeout and informed consent was obtained. 87-year-old gentleman was taken to the endoscopy suite. His oropharynx anesthetized with Topex. He was placed in a left lateral decubitus position. Throughout the procedure in aliquots received total 100 mg Demerol and 4 mg of Versed is intravenous sedation. Under direct physician videogastroscope was inserted into the hypopharynx which appear to be unremarkable. Photographs obtained. The scope was advanced into the esophagus. Proximal and mid portions of the esophagus did not appear to be remarkable. The EG junction was remarkable. In the very distal esophagus just proximal to the e.g. junction there was what appeared to be a subcutaneous mass. There is irregularity of the e.g. junction with evidence of ulceration and recent bleeding with coffee-ground material. The EG junction approximately a at 41-42 cm but was distorted. Upon the scope entering the stomach immediately there were coffee ground mucus staining. The scope was advanced down to the antral area with a subcutaneous mass approximately 10 cm from the pylorus was identified. Photographs obtained. Scope was advanced through the pylorus and the first and second portion of the duodenum were inspected this did not appear to be unremarkable. The scope was withdrawn back into the stomach some mild gastritis of the antrum noted. Biopsies obtained of the antrum with cold forceps. Cold forceps were used to sample the mucosa overlying the subcutaneous mass in the more proximal antrum with a photograph was taken. The scope was retroflexed and within the cardia a ulcerated mass at the e.g. junction was identified. Cold forceps were used to sample this and it was friable and bled easily. It seemed to involve at least 50% of the circumference of the e.g. junction. Multiple photographs were obtained. The area it appeared to be ulcerated with evidence of recent bleeding. After several biopsies were obtained from a retroflex view the scope was then straightened and withdrawn back into the distal esophagus where biopsies immediately at the e.g. junction were obtained. There appeared to be a portion of this friable mass that extended into the distal esophagus as well. Difficult to appreciate the extent. Multiple photographs of the distal esophagus with this friable protruding lesion was obtained. Cold forcep biopsies were obtained from this direction as well. Excess fluid nurse aspirated free the scope was withdrawn without additional abnormality. Impression Malignant appearing tumor at the e.g. junction involving the very distal esophagus and cardia. Evidence of recent coffee ground material consistent with ulceration and low-grade bleeding. Mild antral gastritis. Subcutaneous mass of the antrum as noted. Normal-appearing duodenum. Appropriate laboratory will be obtained. CT scan of the chest and abdomen will be obtained. Appropriate oncology referral will be obtained. Appropriate treatment will be expedited for this patient. Medications were given at 0701. The scope was inserted 0704. Procedure was completed at 0712. Cc: Dr. Ishan Garcia M.D., F.A.C.S. Type of Anesthesia:: IV Sedation 11/18/17 0728 <Electronically signed by Mckenna Garcia MD> Date Mckenna Garcia MD CC: Jd Rosenthal, DO; Mckenna Garcia MD Signed CHEST WITH CONTRAST Observed: 11/18/2017 Status: F Source: [place] 7:20 AM [facility] REPOSITORY [facility] Imaging Services [address] [place] [address] Chest WITH Contrast MR#: [id number] Acct: [id number] Name: EDUARDO GOMEZ Rep #: [id number] : 1960 M 57 From: Luis Miguel Bennett MD PCP: Jd Rosenthal, Status: [facility] Study: Chest WITH Contrast Date of Exam: 11/18/17 Exam# [id number] Ordering Dr: Mckenna Garcia MD STUDY: CT CHEST WITH CONTRAST REASON FOR EXAM: Male, 57 years old. Esophageal mass seen on endoscopy. Abdominal bloating. RADIATION DOSAGE (If Supplied By Facility): CTDIvol = ( 23.48 ) mGy, DLP = ( 2497.6 ) mGycm TECHNIQUE: Transaxial imaging was performed following intravenous administration of 100 ml of Isovue 300 contrast material. Multiplanar coronal and sagittal images were reformatted. Individualized dose optimization techniques were used for this CT. COMPARISON: None. FINDINGS: The lungs are normal. There is no demonstrated pleural abnormality. Normal heart and pericardium. There are multiple small lymph nodes within the mediastinum, which are normal in size and morphology most compatible with reactive lymph hyperplasia. Normal hilar regions. Normal enhanced pulmonary arteries. Normal aorta arch and descending thoracic aorta. Normal osseous structures. There is a 1.5 cm x 1.4 cm x 2.8 cm nodular density along the right lateral wall of the distal esophagus extending into the gastroesophageal junction. Circumferential wall thickening at the gastroesophageal junction. CT/Chest WITH Contrast IMPRESSION: 1.5 cm x 1.4 cm x 2.8 cm nodular density in the right lateral wall of the distal esophagus at the level of the gastroesophageal junction with the evidence of circumferential wall thickening of the distal esophagus. Electronically Signed: Luis Miguel Bennett MD at 10:46 EDT Tel [phone], Service support , CC: Jd Rosenthal DO; Mckenna Garcia MD Network Admin: Signed ABDOMEN/PELVIS WITH Observed: 11/18/2017 Status: F Source: [place] CONTRAST 7:20 AM [facility] REPOSITORY [facility] Imaging Services [address] [place] [address] Abdomen/Pelvis WITH Contrast MR#: [id number] Acct: [id number] Name: EDUARDO GOMEZ Rep #: [id number] : 1960 M 57 From: Luis Miguel Bennett MD PCP: Jd Rosenthal DO Status: [facility] [facility] [place]: Abdomen/Pelvis WITH Contrast Date of Exam: 11/18/17 Exam# [id number] Ordering Dr: Mckenna Garcia MD STUDY: CT ABDOMEN AND PELVIS WITH CONTRAST REASON FOR EXAM: Male, 57 years old. Esophageal mass seen on endoscopy. RADIATION DOSAGE (If Supplied By Facility): CTDIvol = ( 23.48 ) mGy, DLP = ( 2497.6 ) mGycm TECHNIQUE: Transaxial images were obtained from the dome of the diaphragm to the symphysis pubis without oral contrast. 100 ml of Isovue 300 contrast was administered. Sagittal and coronal images were reconstructed. Individualized dose optimization techniques were used for this CT. COMPARISON: None. FINDINGS: The visualized lung bases are unremarkable. The visualized portions of the heart are within normal limits. 5.8 mm cyst in the inferior aspect of the right lobe of the liver. Normal gallbladder and extrahepatic biliary system. Normal spleen. Normal pancreas. Normal bilateral adrenal glands. Normal right kidney. Punctate calcification in the lower pole calyx of the left kidney. 1.7 cm x 1.6 cm nodular mass along the right lateral wall of the distal esophagus as it enters the gastroesophageal junction. Circumferential wall thickening of the gastroesophageal junction. Normal small intestine. Normal colon. The appendix is visualized and appears normal. There is scattered atherosclerotic calcification of the abdominal aorta, without a demonstrated aneurysm. Normal inferior vena cava. There is borderline retroperitoneal lymphadenopathy with enlarged nodes no greater than 10mm in the short axis diameter. Normal urinary bladder. Small benign-appearing bilateral inguinal lymph nodes. Normal abdominal wall. There are degenerative changes of the visualized lumbar spine. CT/Abdomen/Pelvis WITH Contrast IMPRESSION: Nodules seen along the right lateral wall of the distal esophagus with circumferential wall thickening of the gastroesophageal junction as described. Punctate calcification in the lower pole calyx of the left kidney. Electronically Signed: Luis Miguel Bennett MD at 10:50 EDT Tel [phone], Service support , CC: Jd Rosenthal DO; Mckenna Garcia MD Network Admin: Signed EGD ([facility]) Observed: 11/18/2017 Status: F Source: [place] 7:00 AM [facility] REPOSITORY Patient: EDUARDO GOMEZ : 1960 (57/M) Acct Num: [id number] Phys: Mckenna Garcia MD Unit Num: [id number] Loc: EN Specimen: [id number] Received: 11/18/17 - 1007 Spec Type: EGD BIOPSY TISSUES TISSUES: A. Gastric mucous membrane B. Gastric mucous membrane C. Gastric mucous membrane D. Esophageal mucous membrane COMMENT A AND B. The results of immunohistochemistry for Helicobacter pylori will be reported separately ([id number]). C. The results of immunohistochemistry for Helicobacter pylori will be reported separately ([id number]). Immunohistochemistry ([id number]) supports the above diagnosis. D. Immunohistochemistry ([id number]) supports the above diagnosis. The tumor in specimen C AND D shows similar morphologic features. Case has been reviewed in consultation with Dr. Shine who concurs with the above diagnosis. IDC:AM GROSS DESCRIPTION A - Received in fixative is one container labeled with the patient's name and designated biopsy gastric antrum. The specimen consists of one irregular fragment of light edmondson soft tissue that measures 0.5 x 0.3 x 0.1 cm. The specimen is totally submitted in one cassette. B - Received in fixative is one container labeled with the patient's name and designated antral subcutaneous mass biopsy. The specimen consists of one irregular fragment of light edmondson soft tissue that measures 0.3 x 0.3 x 0.1 cm. The specimen is totally submitted in one cassette. C - Received in fixative is one container labeled with the patient's name and designated biopsy mass of cardia. The specimen consists of multiple irregular fragments of light edmondson soft tissue that in aggregate measure 1 x 0.3 x 0.1 cm. The specimen is totally submitted in one cassette. D - Received in fixative is one container labeled with the patient's name and designated biopsy distal esophagus. The specimen consists of multiple irregular fragments of light edmondson soft tissue that in aggregate measure 1 x 0.5 x 0.1 cm. The specimen is totally submitted in one cassette. / ALFREDO:wagner 11/18/17 TC:0 CPT: 64871 x4 HEADER OPERATION: EGD PRE-OP DIAGNOSIS: Esophageal dysphagia TISSUE SUBMITTED: A Antral biopsy, B Antral subcutaneous mass biopsy, C Mass of cardia biopsy, D Distal esophagus biopsy MICROSCOPIC DESCRIPTION Slides are reviewed. A AND B. The specimen shows fragments of gastric mucosa with chronic inflammatory cell infiltrates in the lamina propria consisting of lymphocytes and plasma cells, consistent with mild chronic gastritis. MICROSCOPIC DIAGNOSIS A. Antral biopsy: Mild gastritis. B. Antral mass, biopsy: Mild gastritis. Negative for malignancy. C. 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 See comment. Chronic active gastritis. A few lymphoid aggregate formations, favor benign. D. 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 See comment. ALFREDO:wagner 11/19/17 Signed Kyler Oro 11/20/17 <signature on file> Performed By: #### PEGD #### [facility] [address] [place], [place], [address] IMMUNOHISTOCHEMISTRY Observed: 11/18/2017 Status: F Source: [place] 12:00 AM [facility] REPOSITORY Patient: EDUARDO GOMEZ : 1960 (57/M) Acct Num: [id number] Phys: Jose SIMMS,Mckenna Unit Num: [id number] Loc: EN Specimen: [id number] Received: 11/19/17 - 1400 Spec Type: IMMUNO TISSUES TISSUES: A. Stomach, NOS B. Stomach, NOS C. Cardioesophageal junction D. Esophageal mucous membrane SPECIMEN INFORMATION: Tissue Source: A Antrum, B Antral subcutaneous mass, C Mass of cardia, D Distal esophagus Clinical Info: Esophageal dysphagia Specimen Number: [id number]-D CPT code: 76752 x4, 24196 x7 METHODOLOGY: Deparaffinized sections of prefer/formalin-fixed tissue or PAP/DQ stained slides are incubated with monoclonal/polyclonal antibodies/oligonucleotide probes. Localization is made via biotin free immunoperoxidase method. Appropriate controls are performed and reacted as expected. Results on target cell population are indicated in the following table: RESULTS: ANTIBODY / CLONE RESULT Block A H Pylori (polyclonal) negative Block B H Pylori (polyclonal) negative Block C CK7 (OV-TL12/30) negative CK8 (60yarsH44) positive H Pylori (polyclonal) negative Block D Her-2neu (CB11) negative (1+) CK7 (OV-TL12/30) positive, focal CK8 (26onraE26) positive CK20 (KS20.8) negative CDX2 (YVZ0280Q) positive QUEEN-2 (SP21) positive These tests were developed and their performance characteristics determined by [facility]. They may not have been cleared or approved by the U.S. Food and Drug Administration. The FDA has determined that such clearance or approval is not necessary. INTERPRETATION: A. Antrum, biopsy: Negative for Helicobacter pylori organisms. B. Antral mass, biopsy: Negative for Helicobacter pylori organisms. C. 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 Negative for Helicobacter pylori organisms. D. 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 SJ:wagner 11/20/17 PHYS[facility]IAN [facility] [address] [address] Signed Kyler Oro 11/20/17 <signature on file> Performed By: #### PIMM #### [facility] [address] [place] [address], [address] SURGERY VISIT REPORT Observed: 11/05/2017 Status: F Source: [place] 7:12 PM [facility] REPOSITORY [facility] [address] [place] [address] OFFICE VISIT Date of Service: 11/05/17 MR#: [id number] Acct: [id number] Name: EDUARDO GOMEZ Rep #: [id number] : 1960 Provider: Mckenna Garcia MD Age/Sex: 57/M Location: [facility] Status: Signed Intake Vital Signs11/05/17 Blood Pressure 146/84 11/05/17 Height 6 ft 2.25 in 11/05/17 Blood Pressure 146/84 11/05/17 Blood Pressure Location Lt brachial Intake Visit Reasons: Dysphagia Chief Complaint: Est Care - Check up Allergies acetaminophen [From Vicodin] Allergy (Unknown, Verified 10/31/17 15:13) Hallucination hydrocodone [From Vicodin] Allergy (Unknown, Verified 10/31/17 15:13) Hallucination Penicillins Allergy (Unknown, Verified 10/31/17 15:03) Unknown Sulfa (Sulfonamide Antibiotics) Allergy (Unknown, Verified 10/31/17 15:03) Unknown Medications meloxicam 15 mg tablet 15 mg PO BID tab 10/31/17 [History Confirmed 10/31/17] atenolol 50 mg tablet 50 mg PO DAILY #90 tab 11/03/17 [Rx] PFSH Medical History Dysphagia (Acute) Gynecomastia (Acute) Psoriasis (Chronic) Hypertension (Chronic) Sleep apnea (Chronic) Surgical History History of colonoscopy (Acute) History of orthopedic surgery (Acute) History of varicose vein stripping (Acute) Family History Father Pharynx cancer Liver disease Social History Smoking Status: Never smoker alcohol intake: current alcohol intake frequency: holidays/special occasions only substance use type: does not use what type of physical activity do you participate in: walking HPI HPI HPI: EDUADRO GOMEZ, is a 57 M who presents to the office today for surgical consultation regarding dysphagia. Please note that there is a previous office note dictated on this patient same day today. It is an incorrect dictation. The patient does not have gynecomastia. The patient is a presents today because while attempting to eat an apple food would get caught. He would develop sensation of it going down his esophagus. Developed upper abdominal bloated gassy sensation. This is been going on for multiple months at least since July. He has had no weight change. No bright red blood per rectum or melena. He does have sleep apnea and hypertension. He does not use tobacco. Occasional use of alcohol. He has had left hip pain for which he has been using meloxicam. He states that his esophageal symptoms started before he started his meloxicam Exam Const General: cooperative, healthy appearing Nutritional Appearance: obese HENMT Head: normal to inspection Eyes General: appearance normal, both eyes and all related structures Chest Chest palpation AND inspection: normal inspection of the chest Resp Effort AND Inspection: normal respiratory effort Auscultation: clear to auscultation bilaterally Cardio Rate: regular rate Rhythm: regular rhythm GI Palpation: soft, no hepatosplenomegaly Auscultation: normal bowel sounds Other: Notably overweight I cannot palpate any masses Skin General: no rashes or lesions noted Neuro Cranial Nerves: CN's II-XI intact bilaterally Extrem General: no calf tenderness Psych Affect: normal affect Assessment AND Plan 1. Esophageal dysphagia R13.10 Plan Please note the patient does not have gynecomastia this is incorrect dictation and that diagnosis will be removed Patient does have esophageal dysphagia. I am recommending a esophagogastroduodenoscopy with possible biopsy or polypectomy is indicated. He is aware of the technique, benefits, risks, alternatives. Very careful inspection of the esophagus for possible eosinophilic esophagitis will also be pursued. He has had an option ask and have questions answered. If no findings are determined then potential pursuing abdominal bloating with CT scan might be pertinent. Mckenna Garcia M.D., F.A.C.S. Cc: Dr. Ishan Rosenthal Coding Level of Care Code Off vis,new,level 3 Diagnoses Esophageal dysphagia R13.10 Dysphagia type: esophageal phase 11/05/171911 <Electronically signed by Mckenna Garcia MD> Date Mckenna Garcia MD Cosigner Signature: Date (if applicable) CC: Jd Rosenthal DO SURGERY VISIT REPORT Observed: 11/05/2017 Status: F Source: [place] 7:00 PM [facility] REPOSITORY [facility] 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 Accompanied by: None Is patient in pain?: No Allergies acetaminophen [From Vicodin] Allergy (Unknown, Verified 10/31/17 15:13) Hallucination hydrocodone [From Vicodin] Allergy (Unknown, Verified 10/31/17 15:13) Hallucination Penicillins Allergy (Unknown, Verified 10/31/17 15:03) Unknown Sulfa (Sulfonamide Antibiotics) Allergy (Unknown, Verified 10/31/17 15:03) Unknown Medications meloxicam 15 mg tablet 15 mg PO BID tab 10/31/17 [History Confirmed 10/31/17] atenolol 50 mg tablet 50 mg PO DAILY #90 tab 11/03/17 [Rx] PFSH Medical History Gynecomastia (Acute) Psoriasis (Chronic) Hypertension (Chronic) Sleep apnea (Chronic) Surgical History History of colonoscopy (Acute) History of orthopedic surgery (Acute) History of varicose vein stripping (Acute) Family History Father Pharynx cancer Liver disease Social History Smoking Status: Never smoker alcohol intake: current alcohol intake frequency: holidays/special occasions only substance use type: does not use what type of physical activity do you participate in: walking HPI HPI HPI: EDUARDO GOMEZ, is a 57 M who presents to the office today for further surgical consultation regarding right breast pain. Please refer to my previous notes. On September 15, 2017 I performed a ultrasound-guided needle core biopsy of a right breast mass. Findings get gynecomastia. On preoperative imaging at the [facility] ultrasound on August 29, 2017 he had a 1.7 x 2 x 0.6 cm irregular hypoechoic density in the right retroareolar breast. The patient states that initially he was feeling better but now has recurrent soreness particularly on the right. Today was discuss further treatment options. It is of note that the patient is on Spironolactone. He states it was was initiated approximately a year ago. It has assisted with hypertension control. ROS General General: No weight change, appetite, fatigue, colon cancer, breast cancer or weakness HEENT HEENT: Yes difficulty swallowing; no eye injury, eye surgery, swollen glands or hoarseness Endo Endocrine: No thyroid disease, diabetes mellitus, thyroid cancer, Hair loss, heat intolerance or cold intolerance Skin Skin: No rash or changing moles Breast Breast: No left breast lump, right breast lump, nipple discharge, breast pain, abnormal mammogram, abnormal US or breast enlargement Musc Musculoskeletal: Yes arthritis; no back problems, rheumatoid arthritis, gout or joint pain Cardio Cardiovascular: Yes high blood pressure; no murmur, pacemaker, heart disease, atrial fibrillation, heart attack, heart stent, palpitations, shortness of breat with exertion or chest pain Psych Psychiatric: No depression, anxiety or hearing voices Resp Respiratory: No shortness of breath, Yes sleep apnea, No cough, No COPD, No asthma, No emphysema, No wheezing Gastro Gastrointestinal: Yes abdominal pain, No nausea or vomiting, No diarrhea, No constipation, No blood in stool, No acid reflux, No hemorrhoids, No ulcers, No gallbladder problem, No black,tarry stools Da Hematologic: No blood thinners, No blood disorders, No bleeding, No anemia, No blood clots Neuro Neurologic: No system reviewed and no additional complaints, except as docu, No as per HPI, No abnormal walking, No abnormal hearing, No abnormal movements, No abnormal speech, No behavioral changes, No burning sensations, No confusion, No seizure-like activity, No unsteadiness, No dizziness, No localized weakness, No frequent falls, No headache(s), No lack of coordination, No loss of vision, No memory loss, No numbness, No other visual disturbances, No radiating pain, No restless legs, No sensory deficit, No fainting, No tingling, No tremor(s), No weakness, No other Exam Chest Breast Palpation: No nipple discharge Other: Right breast: Mild nondescript rubbery retroareolar change with a diffuse fibrofatty fullness of the right breast. Mild tenderness Left breast: Less distinct fibrous rubbery change behind the areola. Diffuse fibrofatty change of the breast noted Cardio Heart Sounds: no murmurs Assessment AND Plan Problems 1. Gynecomastia N62 Plan Patient again returns with findings consistent with symptomatic gynecomastia of the right breast. He presents to discuss treatment options. Upon reviewing his medication I note that he is still on the spironolactone. After exhaustive discussion regarding surgical treatment options which would include a right breast obtain his mastectomy. I have suggested to him that I think it would be appropriate for him first to discuss this issue again with Dr. Ajit Ansari his primary care physician. I am suspicious that the spironolactone is the etiologic cause of his right breast pain and gynecomastia. Perhaps that medication could be altered. If the patient's symptoms then persist could consider a right subcutaneous mastectomy. I did caution the patient however that in no way with that guarantee that he would develop symptoms on the left as well. Today was almost a 30 minute join-nl-woye consultative appointment regarding treatment options. He has had an opportunity to ask and have questions answered. Further surgical follow-up can be as needed. Cc: Dr. Ajit Garcia M.D., F.A.C.S. Coding Level of Care Code Off vis,est,level 3 Diagnoses Gynecomastia N62 11/05/17 1900 <Electronically signed by Mckenna Garcia MD> Date Mckenna Garcia MD Cosigner Signature: Date (if applicable) CC: Ajit Ansari MD COMPREHENSIVE METABOLIC Collected: 11/01/2017 Status: F Source: KWASI MCMAHON 9:55 AM [facility] REPOSITORY TYPE CODE TESTS RESULT OUT OF RANGE REFERENCE UNITS LAB L501.0100 74-106 mg/dL Normal GLU 100 Result Comment: Fasting Glucose result from 100 to 125 mg/dL suggests IMPAIRED HOMEOSTASIS per A.D.A. criteria. Please note revised GLUCOSE reference range effective 2017. LAB L501.1000 7-18 mg/dL Normal BUN 18 LAB L501.1100 0.70-1.30 mg/dL Normal CREAT,SERUM 1.12 Result Comment: The validity of the calculated GFR AND GFRAA in patients over 70 years has not been determined. Clinical correlation is essential. LAB L501.1110 >60 mL/min Normal EST GFR 72 Result Comment: Non- GFR Calc LAB L501.1115 >60 mL/min Normal EST GFR - AA 87 Result Comment: GFR Calc LAB L501.1300 10-20 RATIO Normal BUN/CRE 16.1 LAB L501.1500 6.4-8.2 g/dL T Normal PROT 6.8 LAB L501.1800 3.2-5.0 g/dL Normal ALB 3.7 LAB L501.1950 2.2-4.2 g/dL Normal GLOB 3.1 LAB L501.2000 0.9-2.4 RATIO Normal A/G 1.2 LAB L501.2200 8.5-10.1 mg/dL Low CA 8.4 LAB L501.4100 15-37 U/L Normal AST 22 LAB L501.4305 45-117 U/L Normal ALK P 56 LAB L501.4405 16-61 U/L Normal ALT 28 LAB L501.4600 0.20-1.00 mg/dL T Normal BILI 0.50 LAB L501.5300 136-145 mmol/L NA Normal 142 LAB L501.5600 3.5-5.1 mmol/L K Normal 4.1 LAB L501.5900 98-107 mmol/L CL Normal 106 LAB L501.6100 21.0-32.0 mmol/L Normal CO2 27.0 LAB L501.6200 5-15 Normal GAP 9 Performed By: #### L500.4050, L500.4100 #### [facility] [address] [place], [place], [id number] LIPID PROFILE Collected: 11/01/2017 Status: F Source: KWASI 9:55 AM [facility] REPOSITORY TYPE CODE TESTS RESULT OUT OF RANGE REFERENCE UNITS LAB L501.4900 200 mg/dL Normal CHOL 146 Result Comment: <200 mg/dL Desirable 200-240 mg/dL Borderline >240 mg/dL High Risk LAB L501.5000 mg/dL Normal TRIG 71 Result Comment: The drugs N-Acetylcysteine and Metamizole may falsely depress this assay. Serum Triglycerides Reference Interval Normal <150 mg/dL Borderline high 150 - 199 mg/dL High 200 - 499 mg/dL Very High > or = 500 mg/dL LAB L501.6400 mg/dL Normal HDL 41 Result Comment: The drugs N-Acetylcysteine and Metamizole may falsely depress this assay. Reference Range HDL <40 mg/dL Low HDL Cholesterol HDL >or= 60 mg/dL High HDL Cholesterol LAB L501.6500 0-130 mg/dL Normal LDL 91 LAB L501.6600 5-40 mg/dL Normal VLDL 14 Performed By: #### L500.4050, L500.4100 #### [facility] [address] [place], [address] INTERNAL MEDICINE Observed: 10/31/2017 Status: F Source: KWASI OFFICE VISIT 3:50 PM [facility] REPOSITORY [facility] [address] [place] [address] [place] [address] OFFICE VISIT Date of Service: 10/31/17 MR#: [id number] Acct: [id number] Name: PIETROEDUARDO AN Lissett Rep #: [id number] : 1960 Provider: Jd Rosenthal DO Age/Sex: 57/M Location: [facility] Status: Signed Intake Vital Signs10/31/17 Height 6 ft 2.25 in 10/31/17 Weight: 288 lb 10/31/17 Body Mass Index (BMI) 36.7 10/31/17 Blood Pressure 145/83 Intake Visit Reasons: EST CARE Chief Complaint: Est Care - Check up Is patient in pain?: Yes (Lt hip) Pain scale (1-10): 4 Allergies acetaminophen [From Vicodin] Allergy (Unknown, Verified 10/31/17 15:13) Hallucination hydrocodone [From Vicodin] Allergy (Unknown, Verified 10/31/17 15:13) Hallucination Penicillins Allergy (Unknown, Verified 10/31/17 15:03) Unknown Sulfa (Sulfonamide Antibiotics) Allergy (Unknown, Verified 10/31/17 15:03) Unknown Medications atenolol 50 mg tablet 50 mg PO DAILY #90 tab 10/31/17 [Rx Confirmed 10/31/17] meloxicam 15 mg tablet 15 mg PO BID tab 10/31/17 [History Confirmed 10/31/17] PFSH Medical History Psoriasis (Chronic) Hypertension (Chronic) Sleep apnea (Chronic) Surgical History History of colonoscopy (Acute) History of orthopedic surgery (Acute) Family History Father Pharynx cancer Liver disease Social History Smoking Status: Never smoker alcohol intake: current alcohol intake frequency: holidays/special occasions only substance use type: does not use what type of physical activity do you participate in: walking HPI HPI Chief Complaint: Est Care - Check up Details: EDUARDO GOMEZ, is a 57 M who presents to the office today for a check up, he is having some hip pain. Saw Arsaaln Gonzalez and he set up therapy, seems to be some better at this time. He has had a lot of stomach gas type of problems. He has dysphagia with large boluses of food and especially fruits. ROS Const Constitutional: No chills, fatigue, fever(s), frequent falls, malaise, weakness, sleep problems or change in appetite Eyes Eyes: No blurry vision, change in vision, double vision, discharge or visual disturbances ENT ENT: Positive for difficulty swallowing; no abnormal hearing, ear pain, ear pressure, tinnitus or dizziness/vertigo Resp Respiratory: No cough, shortness of breath or wheezing Cardio Cardiology: No chest pain at rest, chest pain with exertion, shortness of breath, dyspnea on exertion, generalized swelling, irregular heart rhythm, lightheadedness, orthopnea, fast heart rate or palpitations Gastro GI: Positive for bloating, excessive flatus and difficulty swallowing; no abdominal pain, change in bowel habits, constipation, diarrhea, nausea/dyspepsia or vomiting Genitourinary Male: No difficulty urinating, burning urination, painful urination, urinary incontinence, urinary frequency, urinary urgency, urinary hesitancy, urinary retention, blood in urine, Frequent nighttime urination/ nocturia, sexual problems, testicle lump or testicle pain Musc Musculoskeletal: Positive for joint pain (Lt hip); no back pain, joint swelling, limited range of motion, muscle weakness, numbness or tingling Skin Skin: No change in skin color, itching, rash or wounds Breast Breast: No breast lump or breast pain Neuro Neurology: No frequent falls, weakness, abnormal hearing, numbness, tingling, unsteady gait/balance, dizziness, loss of vision, memory loss or visual disturbances Psych Psychiatric: No memory loss, No anxiety, No change in appetite, No depression, No Thoughts of harming yourself/Others Endo Endocrine: No fatigue, heat intolerance, increased thirst/drinking, increased hunger or increased urination Aller/Imm Allergy/Immunologic: No wheezing, itchy eyes or seasonal allergy symptoms Da/Lymp Hematologic/Lymphatic: No easy bleeding, easy bruising or enlarged lymph nodes Exam Const General: healthy appearing Resp Effort AND Inspection: normal respiratory effort Auscultation: Bilateral: Clear to Auscultation Cardio Palpation: normal PMI Rate: regular rate Rhythm: regular rhythm Musc Musculoskeletal: Yes joint tenderness (Right hip pain); no muscle weakness Skin General: no rashes or lesions noted Lesions: no lesions Rashes: no rashes Neuro General: oriented x3 Coordination: xzstun-pr-jxgy test normal Extrem General: normal to inspection Psych Appearance: grossly normal Assessment AND Plan Problems 1. Encounter for wellness examination in adult Z00.00 2. Swallowing difficulty R13.10 3. Right hip pain M25.551 Plan This patient was here for general checkup. He was recently seen the physician's assistant sales manager it was dry orthopedics because of right hip pain were ordered physical therapy and the hip is much better at this point in time he also voices a complaint that he is having problems with the feeling of food sticking in his esophagus once it passes the discomfort goes away but it is especially bad eating raw fruits and a few other foods. He has never had an EGD and is never been checked for Cueva's esophagus so I thought it was appropriate to set up a referral. Other than that routine yearly blood work was done and his medications were refilled physical examination was unchanged from prior exams. Orders Orders: Referrals: Medications New: Plan Detail Follow Up 1 Year Coding Level of Care Code Off vis,est,prev 40-64yrs Diagnoses Encounter for wellness examination in adult Z00.00 Swallowing difficulty R13.10 Right hip pain M25.551 10/31/17 1550 <Electronically signed by Jd Rosenthal DO> Date Jd Rosenthal DO Cosigner Signature: Date (if applicable) CC: INITAL EVALUATION (1) Observed: 10/30/2017 Status: F Source: KWASI - PT 9:35 AM [facility] REPOSITORY [facility] [address] [place], [place] [address] Fax REHABILITATION SERVICES INITIAL EVALUATION MR#: [id number] Acct: [id number] Name: EDUARDO GOMEZ Rep #: [id number] : 1960 57 From: Azam Hawkins DPT, OCS, CSCS Referring Dr.: Lui ADAM Status: REG RCR Insurance: [facility] SELF PAY INSURANCE Patient's Visit Information EDUARDO GOMEZ is a 57 year old M referred to Physical Therapy by JAIR Wade with a diagnosis of L hip OA. Date of Evaluation: 10/29/17 Physical Therapist: Azam Hawkins DPT, OC - Visit Plan Frequency: 3x /Week Duration: 4-6 Weeks Plan: 3x/week for 3-6 weeks for. 1. rollout ITB, HS, Hip flexor adn quad and stretch, teach stretches for HEP, hip stabs for ext and abd adn progress to EHP. May use ESTIM and MH if painful. - Subjective Subjective: L hip is not getting better. Flared up with pain a couple years ago and got better on its own. Flared back up earlier this summer for a weeka nd got better. Then 2 weeks ago it started hurting again insidiously. Could hardly do anything weightbearing and walked very slow. Pain is anteror L hip and groin. Better once he gets moving, transitions are painful. Stabbing pain with flexion. Doctor x rayed and showed some OA. Sent for PT. F/U in 4 weeks. Sleep is Ok. Rolling can hurt. 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 Basic ADLs are OK, slower and painful. Walks for fitness with and she had to slow down. Hobbies include fishing and hiking but not lately becasue of hip. Grandkids were hard to play with this past weekend due to pain, ages 5,3,1. - Pain L hip anterior Pain Intensity (Out of 10): 0 Pain Intensity Range: 0, 6 - Objective L posterior pelvic rotation to avoid L hip ext at end stance. Slight antalgia today but not bad. Trasfers I but this hurts the most for a quick second as well as when he lifts the leg but not isometric hold. sensation LE WNL to gross light touch. reflexes 2/3 patella and achilles. Strength HIP ext and abd 4- and other hip 4+/5, knees 5/5 and ankles 5/5. Flexibility: HS mod tight, hip flexors max tight, ITB min tight B. AROM L hip flexion to 110 with mild discomfort, abd symmetrical, IR painful, ext rotation 50 degrees. R ext rotation 60 and IR not painful at 15 degrees. steps are reciprocal with a rail and hurts to ascend L hip, he tends to just use R. + L scour. - JOSE MANUEL, slight + FADDIR L - Goals Goal 1:: Pt feel 100% back to normal with L hip pain and gait Goal Time Frame: 4-6 Weeks Goal 2:: Pt I in appropriate ex to minimize future problems Goal Time Frame: 4-6 Weeks Goal 3:: Pt walk with at her normal speed for fitness without pain Goal Time Frame: 4-6 Weeks Goal 4:: Transfer out of chair without noticing pain and roll in bed easily. Goal Time Frame: 4-6 Weeks - Rehabilitation Potential Physical Therapy Diagnosis: L hip OA Rehabilitation Potential: Fair - Anticipated Interventions Patient/Client Instruction: Educate patient on: Condition, Plan of Care For the Purpose of:: To decrease pain, To improve muscle performance and motor function, To improve ability of physical actions for home/community/work/leisure Therapeutic Exercise to Include: Strength training, Flexibilty training, Gait and locomotor training, Active ROM For the Purpose of:: To decrease pain, To decrease swelling/inflammation, To increase ROM, To improve performance and independence with ADL's, To improve ability of physical actions for home/community/work/leisure Manual Therapy Techniques to Include: Soft tissue mobilization For the Purpose of:: To improve nutrient delivery to tissue TENS: Yes Thermo therapy (hot pack): Yes For the Purpose of:: To decrease pain Thank you for the opportunity to evaluate your patient. For Medicare and Medicare HMO plans, please review the plan of care and approve it. It will need to be FAXED BACK to us at [phone] for Medicare purposes. Please let me know if there are questions or concerns regarding this plan of care. Physician Signature: Date: <Electronically signed by Azam Hawkins DPT, OCS, CSCS> 10/30/17 0935 CC: Jd Rosenthal DO; Lui ADAM EBG Signed For Medicare only, by signing this I certify the plan of care. Physicians Signature Date ALLERGIES ALLERGIES DATE TYPE / CODE NAME / CODE REACTION SEVERITY SOURCE 02/12/2018 Drug Penicillins/ Rash SV [place] Allergy/416 [id number]([facility] 046732([facility] XNORM) Hospital ED CT) Repository 02/12/2018 Drug Sulfa Rash SV [place] Allergy/416 (Sulfon[facility] 443955([facility] Antibiotics) Hospital ED CT) /[id number]( Repository RXNORM) 02/12/2018 Drug hydrocodone/ hallucination SV [place] Allergy/416 [id number](R [facility] 712636([facility] XNORM) Hospital ED CT) Repository 12/04/2017 Drug acetaminophe hallucination Unknown [place] Allergy/416 n/[id number] [place] 767552([facility] (RXNORM) Hospital ED CT) Repository ENCOUNTERS ENCOUNTERS ADMIT/DISCHARGE ACCOUNT NUMBER ADMITTING ENCOUNTER LOCATION SOURCE CLASS 03/27/2018 [id number] Ambulatory [facility] ding:SL Repository 03/13/2018 [id number] Ambulatory [facility] ding:ONC Repository 03/11/2018 [id number] Ambulatory Building:KJL [facility] Repository 03/11/2018 [id number] Ambulatory Building:KRI [facility] Repository 03/11/2018 [id number] Ambulatory Building:OPA [facility] Repository 02/17/2018 [id number] Ambulatory Building:[facility] Repository 02/17/2018 [id number] Ambulatory Building:[facility] Repository 02/17/2018 [id number] Ambulatory Building:BS2 [facility] Repository 02/17/2018 [id number] Ambulatory Building:BS2 [facility] Repository 02/17/2018 [id number] Ambulatory Building:D8E [facility] Repository 02/17/2018 [id number] Ambulatory Building:RDS [facility] Repository 02/17/2018 [id number] Ambulatory [facility] ding:NS Repository 02/12/2018 [id number] Ambulatory BMSBuilding: [place] [facility] Repository 02/02/2018/02/07/20 [id number] Ambulatory [address] ding:NS Repository 01/27/2018 [id number] Ambulatory BMSBuilding: [place] [facility]MS.[facility] Repository 01/20/2018 [id number] Ambulatory Building:BS2 [facility] Repository 01/19/2018 [id number] Ambulatory BMSBuilding: [place] [facility]MS.[facility] Repository 01/14/2018 [id number] Ambulatory BMSBuilding: [place] [facility] Repository 01/13/2018 [id number] Ambulatory BMSBuilding: [place] [facility] Repository 01/07/2018 [id number] Ambulatory BMSBuilding: [place] [facility] Repository 01/06/2018 [id number] Ambulatory BMSBuilding: [place] [facility] Repository 12/31/2017 [id number] Ambulatory BMSBuilding: [place] [facility] Repository 12/30/2017 [id number] Ambulatory BMSBuilding: [place] BMS.[facility] Repository 12/29/2017/01/08/20 [id number] Ambulatory [address] ding:NS Repository 12/24/2017 [id number] Ambulatory BMSBuilding: [place] [facility] Repository 12/23/2017 [id number] [facility] [place] [facility] 12/17/2017 [id number] Ambulatory BMSBuilding: [place] [facility] Repository 12/16/2017 [id number] [facility] [place] [facility] 12/09/2017 [id number] Ambulatory Building:BS2 [facility] Repository 12/09/2017 [id number] Ambulatory BMSBuilding: [place] [facility] Repository 12/08/2017 [id number] Ambulatory BMSBuilding: [place] [facility] Repository 12/08/2017/12/09/19 [id number] Ambulatory [address] ding:SDCRoom Repository : AC08 12/04/2017 [id number] Ambulatory BMSBuilding: [place] [facility] Repository 12/04/2017 [id number] Ambulatory BMSBuilding: [place] [facility]MS.[facility] Repository 12/04/2017 [id number] Ambulatory [facility] ding:LAB Repository 12/04/2017/12/05/19 [id number] Ambulatory BMSBuilding: [place] 18 BMS.[facility] Repository 12/04/2017 [id number] Ambulatory BMSBuilding: [place] [facility] Repository 12/04/2017 [id number] Ambulatory BMSBuilding: [place] [facility] Repository 11/28/2017 [id number] Ambulatory BMSBuilding: [place] [facility] Repository 11/25/2017/12/08/19 [id number] Ambulatory [address] ding:NS Repository 11/25/2017 [id number] Ambulatory BMSBuilding: [place] [facility]MS.[facility] Repository 11/24/2017 [id number] Ambulatory Building:[facility] Repository 11/24/2017 [id number] Ambulatory [facility] ding:ONC Repository 11/20/2017 [id number] Ambulatory BMSBuilding: [place] [facility] Repository 11/18/2017 [id number] Ambulatory Building:[facility] Repository 11/18/2017 [id number] Ambulatory Building:[facility] Repository 11/18/2017/11/19/19 [id number] Ambulatory [address] ding:ENRoom: Repository AC10 11/18/2017 [id number] Ambulatory BMSBuilding: [place] [facility]MS.CF[facility] Repository 11/14/2017/11/15/19 [id number] Ambulatory [address] ding:PT Repository 11/05/2017/11/06/19 [id number] Ambulatory BMSBuilding: [place] 18 BMS.[facility] Repository 11/01/2017 [id number] Ambulatory [facility] ding:LAB Repository 10/31/2017/11/01/19 [id number] Ambulatory BMSBuilding: [place] 18 BMS.[facility] Repository PAYERS PAYERS ENCOUNTER GUARANTOR PAYER SUBSCRIBER SOURCE 03/27/2018 EDUARDO Galeana Primary EDUARDO Villalpando [id number] Insurance:MEDICAL BURKHOLDERDOB: [facility] [place] Number: Repository [address]Vih: [phone]) [id number] [phone] (HP) Date:1771-09-83BT [address] [address]FL: 03/27/2018 Secondary NOT GIVENUNK [place] Insurance:SELF PAY [facility] Number: Effective Repository Date:2018-03-20 03/13/2018 EDUARDO Galeana [facility] EDUARDO Galeana [place] [id number] Insurance:MEDICAL BURKHOLDERDOB: [facility] 0917[place] Number: Repository [address]Eha: 419 [id number] [phone] () Date:3397-97-29UT [address] [address]YM: 03/13/2018 Secondary NOT GIVENUNK [place] Insurance:SELF PAY [facility] Number: Effective Repository Date:2017-11-19 03/11/2018 [facility] EDUARDO [facility] BURKHOLDERDOB: Insurance:[facility] BURKHOLDERDOB: [place] [id number] Number: [id number] [facility] [id number] [address] [place] [address] Date:1728-70-43Lngx [place] Repository [address]Bix: [phone]) Name:[facility] [address]Uux: (HP) [phone] () 03/11/2018 [facility] EDUARDO [facility] BURKHOLDERDOB: Insurance:[facility] BURKHOLDERDOB: Eustace [id number] Number: [id number] [facility] [id number] [address] [place] [address] Date:4785-95-72Vfwe [place] Repository [address]Axb: (969) Name:MANAGED CARE [address]Cdv: (HP) [phone] (HP) 03/11/2018 [facility] BURKHOLDERDOB: Insurance:[facility] BURKHOLDERDOB: [place] Number: [id number] [facility] [id number] [address] [place], [place] Date:5430-29-93Bvaa [place] Repository [address]Sgo: ([phone]) Name:MANAGED CARE [address]Rxn: (HP) [phone] (HP) 02/17/2018 [facility] BURKHOLDERDOB: Insurance:MMOPolbretty BURKHOLDERDOB: [place] [id number] Number: [id number] [facility] [id number] [address] [place], [place] Date:4600-35-49Rsgm [place] Repository [address]Nhm: ([phone]) Name:[facility] [address]Qvi: (HP) [phone] () 02/17/2018 [facility] BURKHOLDERDOB: [facility] B[facility]KH[facility]DERD[facility]: [place] [id number] Number: [id number] [facility] [id number] [address] [place], [place] Date:5492-52-85Kgmy [place] Repository [address]Ipr: (419) Name:[facility] [id number]: (HP) [phone] (HP) 02/17/2018 [facility] BURKHOLDERDOB: Insurance:MMJessicay BURKHOLDERDOB: Eustace [id number] Number: [id number] [facility] [id number] [address] [place], [place] Date:0840-53-99Bcgn [place] Repository [address]Jki: ([phone]) Name:MANAGED CARE [address]Rhi: (HP) [phone] (HP) 02/17/2018 [facility] BURKHOLDERDOB: Insurance:Jessicay BURKHOLDERDOB: Eustace [id number] Number: [id number] [facility] [id number] [address] [place] [address] Date:9237-17-81Ppdg [place] Repository [address]Ozr: ([phone]) Name:MANAGED CARE [id number]: () [phone] () 02/17/2018 [facility] BURKHOLDERDOB: Insurance:[facility] BURKHOLDERDOB: [place] Number: [id number] [facility] [id number] [address] [place] [address] Date:7194-81-52Wklj [place] Repository [address]Dyx: ([phone]) Name:MANAGED CARE [address]Hge: () [phone] () 02/17/2018 [facility] BURKHOLDERDOB: Insurance:[facility] BURKHOLDERDOB: [place] Number: [id number] [facility] [id number] [address] [place] [address] Date:5184-20-92Exqr [place] Repository [address]Igh: (419) Name:MANAGED CARE [address]Bok: () [phone] () 02/17/2018 [facility] EDUARDO Villalpando [id number] Insurance:MEDICAL BURKHOLDERDOB: [facility] 0835[place]19[place] Number: Repository [id number]: 419 [id number] [phone] () Date:4619-53-04XH [address] [place] [address]MU: 02/17/2018 Secondary NOT GIVENUNK [place] Insurance:SELF PAY [facility] Number: Effective Repository Date:2018-02-07 02/12/2018 [facility] EDUARDO Villalpando [id number] Insurance:MEDICAL BURKHOLDERDOB: [facility] [place]46[place] Number: Repository [address]Qwc: 419 [id number] [phone] (HP) Date:2030-15-03BY[address] [address]EX: 02/12/2018 Secondary NOT GIVENUNK [place] Insurance:SELF PAY [facility] Number: Effective Repository Date:2018-02-12 02/02/2018 EDUARDO Lissett [facility] EDUARDO Villalpando [id number] Insurance:MEDICAL BURKHOLDERDOB: [facility] 3274-16-63LKNStock[place] Number: Repository [address]Pwn: 419 [id number] [phone] () Date:2816-47-32PH [address] [address]NK: 02/02/2018 Secondary NOT GIVENUNK [place] Insurance:SELF PAY [facility] Number: Effective Repository Date:2018-01-08 01/27/2018 [facility] EDUARDO Villalpando [id number] Insurance:MEDICAL BURKHOLDERDOB: [facility] 0222[place]94-[place]YM[place] Number: Repository [address]Qpj: 419 [id number] [phone] () Date:0838-14-54VQ [address] [address]BS: 01/27/2018 Secondary NOT GIVENUNK [place] Insurance:SELF PAY [facility] Number: Effective Repository Date:2018-01-27 01/20/2018 [facility] EDUARDO [facility] BURKHOLDERDOB: Insurance:[facility] BURKHOLDERDOB: [place] [id number] Number: [id number] [facility] [id number] [address] [place] [address] Date:5306[place]82[place]11[place] Repository [address]Vyb: 419 Name:MANAGED CARE [id number]: () [phone] () 01/19/2018 EDUARDO Galeana Primary EDUARDO Villalpando [id number] Insurance:MEDICAL BURKHOLDERDOB: [facility] 0095-70[place]63VQR[place] Number: Repository [address]Nfd: 419 [id number] [phone] () Date:9025-47-85KU[address] [address]JE: 01/19/2018 Secondary NOT GIVENUNK [place] Insurance:SELF PAY [facility] Number: Effective Repository Date:2018-01-19 01/14/2018 EDUARDO Galeana Primary EDUARDO Hooster [id number] Insurance:MEDICAL BURKHOLDERDOB: [facility] 9894-65[place]17PPDStock[place] Number: Repository [address]Rcp: 419 [id number] [phone] () Date:5587-30-49IK[address] [address]RV: 01/14/2018 Secondary NOT GIVENUNK [place] Insurance:SELF PAY [facility] Number: Effective Repository Date:2018-01-14 01/13/2018 EDUARDO Galeana Primary EDUARDO Galeana [place] [id number] Insurance:MEDICAL BURKHOLDERDOB: [facility] 3936-96-56MDYStock[place] Number: Repository [address]Mqb: 419 [id number] [phone] () Date:4816-29-17KD [address] [address]ZR: 01/13/2018 Secondary NOT GIVENUNK [place] Insurance:SELF PAY [facility] Number: Effective Repository Date:2018-01-13 01/07/2018 EDUARDO Galeana Primary EDUARDO Villalpando [id number] Insurance:MEDICAL BURKHOLDERDOB: [facility] 4734-39-92FQZStock[place] Number: Repository [address]Eub: 419 [id number] [phone] (HP) Date:7225-66-20NT [address] [address]AZ: 01/07/2018 Secondary NOT GIVENUNK [place] Insurance:SELF PAY [facility] Number: Effective Repository Date:2018-01-07 01/06/2018 EDUARDO Lissett Primary EDUARDO Galeana [place] [id number] Insurance:MEDICAL BURKHOLDERDOB: [facility] 3658-53-26VQTStock[place] Number: Repository [address]Ssc: 419 [id number] [phone] (HP) Date:1326-77-40YR[address] [address]KY: 01/06/2018 Secondary NOT GIVENUNK [place] Insurance:SELF PAY [facility] Number: Effective Repository Date:2018-01-06 12/31/2017 [facility] Primary EDUARDO Galeana [place] [id number] Insurance:MEDICAL BURKHOLDERDOB: [facility] 5502-35-30OSNStock[place] Number: Repository [address]Jiv: 419 [id number] [phone] (HP) Date:4907-60-64DB [address] [address]PM: 12/31/2017 Secondary NOT GIVENUNK [place] Insurance:SELF PAY [facility] Number: Effective Repository Date:2017-12-31 12/30/2017 [facility] Primary EDUARDO Galeana [place] [id number] Insurance:MEDICAL BURKHOLDERDOB: [facility] 4390-06-82HQWStock[place] Number: Repository [address]Msz: 419 [id number] [phone] (HP) Date:8968-09-62LB [address] [address]QI: 12/30/2017 Secondary NOT GIVENUNK [place] Insurance:SELF PAY [facility] Number: Effective Repository Date:2017-12-30 12/29/2017 EDUARDO Galeana Primary EDUARDO Villalpando [id number] Insurance:MEDICAL BURKHOLDERDOB: [facility] 1874-42-12VZDEssentia Health, [place] Number: Repository [address]Lps: [phone] [id number] [phone]) Date:7512-46-75HC [address] [address]HF: 12/29/2017 Secondary NOT GIVENUNK [place] Insurance:SELF PAY [facility] Number: Effective Repository Date:2017-12-08 12/24/2017 EDUARDO Lissett Primary EDUARDO Galeana [place] [id number] Insurance:MEDICAL BURKHOLDERDOB: [facility] 5108-82-59ZNUEssentia Health, [place] Number: Repository [address]Uso: ([phone]) [id number] [phone] (HP) Date:8819-10-22BB [address] [address]AG: 12/24/2017 Secondary NOT GIVENUNK [place] Insurance:SELF PAY [facility] Number: Effective Repository Date:2017-12-24 12/23/2017 EDUARDO Lissett Primary EDUARDO Galeana [place] [id number] Insurance:MEDICAL BURKHOLDERDOB: [facility] 7484-27-60XHSEssentia Health, [place] Number: Repository [address]Nin: ([phone]) [id number] [phone] (HP) Date:3847-03-21RK[address] [address]TX: 12/23/2017 Secondary NOT GIVENUNK [place] Insurance:SELF PAY [facility] Number: Effective Repository Date:2017-12-23 12/17/2017 EDUADRO Galeana Primary EDUARDO Villalpando [id number] Insurance:MEDICAL BURKHOLDERDOB: [facility] 3711-59-59[facility] [place] Number: Repository [address]Lvu: ([phone]) [id number] [phone] (HP) Date:0917-59-49MK [address] [address]MZ: 12/17/2017 Secondary NOT GIVENUNK [place] Insurance:SELF PAY [facility] Number: Effective Repository Date:2017-12-17 12/16/2017 EDUARDO Galeana [facility] EDUARDO Villalpando [id number] Insurance:MEDICAL BURKHOLDERDOB: [facility] 3112-62-15LRKStock[place] Number: Repository [address]Pbj: 419 [id number] [phone] () Date:5787-07-30WB [address] [address]WI: 12/16/2017 Secondary NOT GIVENUNK [place] Insurance:SELF PAY [facility] Number: Effective Repository Date:2017-12-16 12/09/2017 [facility] BURKHOLDERDOB: [facility] [place] [id number] Number: [id number] [facility] [id number] [address] [place] [address] Date:2035-50-62OqwyLincoln, [place] Repository [address]Vqi: ([phone]) Name:MANAGED CARE [id number]: (HP) [phone] (HP) 12/09/2017 EDUARDO Lissett [facility] EDUARDO Galeana [place] [id number] Insurance:MEDICAL BURKHOLDERDOB: [facility] 0990-70-05ECJStock[place], [place] Number: Repository [address]Nvh: ([phone]) [id number] [phone] () Date:7403-93-60FC[address] [address]UX: 12/09/2017 Secondary NOT GIVENUNK [place] Insurance:SELF PAY [facility] Number: Effective Repository Date:2017-12-09 12/08/2017 EDUARDO [facility] EDUARDO Galeana [place] [id number] Insurance:MEDICAL BURKHOLDERDOB: [facility] 7507-97-55QKTStockdale, [place] Number: Repository [address]Tiq: 419 [id number] [phone] (HP) Date:5856-96-22CG[address] [address]KW: 12/08/2017 Secondary NOT GIVENUNK [place] Insurance:SELF PAY [facility] Number: Effective Repository Date:2017-12-08 12/08/2017 EDUARDO D Primary EDUARDO Lissett [place] [id number] Insurance:MEDICAL BURKHOLDERDOB: [facility] 9535-97-68FIOStock[place], [place] Number: Repository [address]Jtu: ([phone]) [id number] [phone] (HP) Date:9939-81-44LJ [address] [address]VM: 12/08/2017 Secondary NOT GIVENUNK [place] Insurance:SELF PAY [facility] Number: Effective Repository Date:2017-12-04 12/04/2017 [facility] Primary EDUARDO D [place] [id number] Insurance:MEDICAL BURKHOLDERDOB: [facility] 2088-71-86OQCStock[place], [place] Number: Repository [address]Pcp: ([phone]) [id number] [phone]) Date:5490-51-74GI [address] [address]IG: 12/04/2017 Secondary NOT GIVENUNK [place] Insurance:SELF PAY [facility] Number: Effective Repository Date:2017-12-04 12/04/2017 EDUARDO D Primary EDUARDO D [place] [id number] Insurance:MEDICAL BURKHOLDERDOB: [facility] 0326-81-88JHWStock[place], [place] Number: Repository [address]Nri: ([phone]) [id number] [phone] (HP) Date:4192-00-36FE [address] [address]TM: 12/04/2017 Secondary NOT GIVENUNK [place] Insurance:SELF PAY [facility] Number: Effective Repository Date:2017-12-04 12/04/2017 EDUARDO Galeana Primary EDUARDO Villalpando [id number] Insurance:MEDICAL BURKHOLDERDOB: [facility] 6085-87-76ZUZStock[place], [place] Number: Repository [address]Mgr: ([phone]) [id number] [phone] (HP) Date:9540-33-10BP [address] [address]EY: 12/04/2017 Secondary NOT GIVENUNK [place] Insurance:SELF PAY [facility] Number: Effective Repository Date:2017-12-04 12/04/2017 EDUARDO Galeana Primary EDUARDO Galeana [place] [id number] Insurance:MEDICAL BURKHOLDERDOB: [facility] 1309-96-00HIWEssentia Health, [place] Number: Repository [address]Mdu: 419 [id number] [phone] () Date:9160-50-69ZF [address] [address]CI: 12/04/2017 Secondary NOT GIVENUNK [place] Insurance:SELF PAY [facility] Number: Effective Repository Date:2017-12-01 12/04/2017 EDUARDO Galeana Primary EDUARDO Galeana [place] [id number] Insurance:MEDICAL BURKHOLDERDOB: [facility] 0420-61-55BDGEssentia Health, [place] Number: Repository [address]Nwy: ([phone]) [id number] [phone] Date:6595-14-13SX [address] [address]UE: 12/04/2017 Secondary NOT GIVENUNK [place] Insurance:SELF PAY [facility] Number: Effective Repository Date:2017-12-04 12/04/2017 EDUARDO Galeana Primary EDUARDO Villalpando [id number] Insurance:MEDICAL BURKHOLDERDOB: [facility] 5541-32-23CYTEssentia Health, [place] Number: Repository [address]Ita: 419 [id number] [phone] (HP) Date:2594-56-37XB [address] [place] [address]LF: 12/04/2017 Secondary NOT GIVENUNK [place] Insurance:SELF PAY [facility] Number: Effective Repository Date:2017-12-04 11/28/2017 EDUARDO Lissett Primary EDUARDO Lissett [place] [id number] Insurance:MEDICAL BURKHOLDERDOB: [facility] 9413-93-17UUVStock[place], [place] Number: Repository [address]Lvr: ([phone]) [id number] [phone]) Date:2274-88-18QB [address] [address]HD: 11/28/2017 Secondary NOT GIVENUNK [place] Insurance:SELF PAY [facility] Number: Effective Repository Date:2017-11-28 11/25/2017 [facility] Primary EDUARDO Lissett [place] [id number] Insurance:MEDICAL BURKHOLDERDOB: [facility] 1334-60-35WCVStock[place], [place] Number: Repository [address]Wew: 419 [id number] [phone] (HP) Date:5571-80-55XG [address] [address]TM: 11/25/2017 Secondary NOT GIVENUNK [place] Insurance:SELF PAY [facility] Number: Effective Repository Date:2017-11-25 11/25/2017 [facility] Primary EDUARDO Villalpando [id number] Insurance:MEDICAL BURKHOLDERDOB: [facility] 5622-20-01TKTStock[place], [place] Number: Repository [address]Wfj: 419 [id number] [phone] (HP) Date:7768-51-46JI [address] [address]XB: 11/25/2017 Secondary NOT GIVENUNK [place] Insurance:SELF PAY [facility] Number: Effective Repository Date:2017-11-25 11/24/2017 EDUARDO Galeana Primary EDUARDO Villalpando [id number] Insurance:MEDICAL BURKHOLDERDOB: [facility] 8482-67-42PUKStock[place], [place] Number: Repository [address]Gzm: ([phone]) [id number] [phone] (HP) Date:9557-67-65GF [address] [address]VK: 11/24/2017 Secondary NOT GIVENUNK [place] Insurance:SELF PAY [facility] Number: Effective Repository Date:2017-11-21 11/20/2017 EDUARDO Galeana Primary EDUARDO Galeana [place] [id number] Insurance:MEDICAL BURKHOLDERDOB: [facility] 3628-14-13MMMStockdale, [place] Number: Repository [address]Acf: ([phone]) [id number] [phone] (HP) Date:7689-70-00NL [address] [address]LU: 11/20/2017 Secondary NOT GIVENUNK [place] Insurance:SELF PAY [facility] Number: Effective Repository Date:2017-11-20 11/18/2017 EDUARDO D Primary EDUARDO Galeana [place] [id number] Insurance:MEDICAL BURKHOLDERDOB: [facility] 4558-02-46PNVStockdale, [place] Number: Repository [address]Ned: ([phone]) [id number] [phone] (HP) Date:2425-63-40CS [address] [address]FP: 11/18/2017 Secondary NOT GIVENUNK [place] Insurance:SELF PAY [facility] Number: Effective Repository Date:2017-11-05 11/18/2017 EDUARDO D Primary EDUARDO Villalpando [id number] Insurance:MEDICAL BURKHOLDERDOB: [facility] 2133-09-88SZAStock[place], [place] Number: Repository 12[address]Pih: ([phone]) [id number] [phone] (HP) Date:3597-35-31EG [address] [place] [address]UY: 11/18/2017 Secondary NOT GIVENUNK [place] Insurance:SELF PAY [facility] Number: Effective Repository Date:2017-11-18 11/14/2017 EDUARDO Galeana Primary EDUARDO Villalpando [id number] Insurance:MEDICAL BURKHOLDERDOB: [facility] 8244-03-06LTPStockdale, [place] Number: Repository [address]Qof: 419 [id number] [phone] (HP) Date:1074-64-39XQ [address] [address]IB: 11/14/2017 Secondary NOT GIVENUNK [place] Insurance:SELF PAY [facility] Number: Effective Repository Date:2017-10-27 11/05/2017 EDUARDO Lissett Primary EDUARDO Villalpando [id number] Insurance:MEDICAL BURKHOLDERDOB: [facility] 6797-66-26UHSStock[place], [place] Number: Repository [address]Pql: 419 [id number] [phone] (HP) Date:0603-00-98BL [address] [address]VE: 11/05/2017 Secondary NOT GIVENUNK [place] Insurance:SELF PAY [facility] Number: Effective Repository Date:2017-11-05 11/01/2017 EDUARDO D Primary EDUARDO Villalpando [id number] Insurance:MEDICAL BURKHOLDERDOB: [facility] 2710-16-56FIQStock[place] Number: Repository [address]Nyt: 419 [id number] [phone] (HP) Date:8210-20-59XF [address] [place] [address]ZZ: 11/01/2017 Secondary NOT GIVENUNK [place] Insurance:SELF PAY [facility] Number: Effective Repository Date:2017-11-01 10/31/2017 EDUARDO D Primary EDUARDO Villalpando [id number] Insurance:MEDICAL BURKHOLDERDOB: [facility] 8203-91-15XRMStock[place], [place] Number: Repository [address]Oem: ([phone]) [id number] [phone] () Date:8432-73-88BF [address], [place] [address]WW: 10/31/2017 Secondary NOT GIVENUNK [place] Insurance:SELF PAY [facility] Number: Effective Repository Date:2017-10-23
== END ==
PROVIDERS: Family Provider Family Medicine; PCP Family Medicine; Referring Provider Family Medicine; Visit Provider Family Medicine
DX: G47.33 Obstructive sleep apnea (adult) (pediatric) (principal)

== ENCOUNTER 2018-05-11 22:39 | Emergency (ER) | payer OTHER, SELFPAY ==
[2017-12-01 15:00] VITALS: BMI 37.5
[2018-01-27 12:47] VITALS: BMI 36.2
[2018-05-11 22:42] VITALS: BP 140/84; PULSE 96; RESP 16; TEMP 36.6; O2SAT 98; BMI 33.1
--- NOTE | 2018-05-11 23:03 | ED.VIS.GEN ---
History of Present Illness Chief Complaint: Wound Detail of Chief Complaint: clogged J-tube Informant: Patient, Family Onset: Today Quality: clogged w/ tube feed residue Associated Symptoms: none Narrative: Patient had a complete gastrectomy at [facility] 2 weeks ago for stomach cancer and has a J-tube to supplement his feeds so he gets enough nutrition, he gets tube feeds overnight and is on a full liquid diet during the day. His tube became clogged today. He denies any nausea or vomiting. His abdominal pain has been steadily improving since his surgery. No fevers. He and home health nurse tried flushing with warm water. - Past Medical History (1) Anemia Status: Chronic (2) Gastroesophageal cancer Status: Chronic (3) Hypertension Status: Chronic (4) Iron deficiency anemia Status: Chronic (5) Psoriasis Status: Chronic (6) Sleep apnea Status: Chronic Past Medical History - Allergies and Home Meds Allergies/Adverse Reactions: Allergies hydrocodone [From Vicodin] Allergy (Severe, Verified 05/11/18 22:42) Hallucination Penicillins Allergy (Severe, Verified 05/11/18 22:42) Rash Sulfa (Sulfonamide Antibiotics) Allergy (Severe, Verified 05/11/18 22:42) Rash Primary Care Physician: Ramsey Rosenthal DO [Primary Care Provider] - Lives: Spouse/ Significant Other Smoking Status: Never smoker Review of Systems General: Denies: Chills, Fever Gastrointestinal: Reports: Abdominal pain. Denies: Nausea, Vomiting Physical Exam Vital Signs/Narrative: Vital Signs Temp Pulse Resp BP Pulse Ox 05/11/18 22:42 97.9 F 96 16 140/84 H 98 Inital Vital Signs reviewed: Yes General: Well nourished, Well developed, No Acute Distress - well-appearing Head: Normocephalic, Atraumatic Abdomen: Soft, Nontender, Nondistended, Normal bowel sounds, - - J-tube site benign-appearing, tube sutured in place. well-healing upper abd transverse surgical inc Neurological: Alert, Oriented x3, Cranial nerves II-XII grossly intact, Normal Strength, Normal Sensation Psychological: Normal affect, Normal Mood Diagnostic/Tx/Re-eval - Medical Decision Making Was able to clear the obstruction, which was likely solidified tube feed, without using a physical declogger. Procedures Procedure(s): Declogged J-tube -- using 60-cc syringe with light-colored carbonated cola, was able to dissolve and flush obstruction through tube. Flushed w/ water easily. Pt tolerated well, no pain/symptoms, no complications. ED Disposition - Plan for ED Patient: Disposition: Home or Assisted Living Diagnosis: Jejunostomy malfunction Instructions: Gastrostomy Feeding Tube Care: Flushing Referrals: Ramsey Rosenthal, [Primary Care Provider] - (as needed)
[2018-05-12 00:38] VITALS: BP 138/61; PULSE 87; RESP 18; O2SAT 96
== END 2018-05-12 00:39 | disposition home or self-care (01) ==
PROVIDERS: Emergency Provider Emergency Medicine; Family Provider Family Medicine; PCP Family Medicine
DX: K94.13 Enterostomy malfunction (principal); Y83.3 Surgical operation with formation of external stoma as the cause of abnormal reaction of the patient, or of later complication, without mention of misadventure at the time of the procedure; G47.30 Sleep apnea, unspecified; L40.9 Psoriasis, unspecified; D50.9 Iron deficiency anemia, unspecified; I10 Essential (primary) hypertension; D64.9 Anemia, unspecified; C16.9 Malignant neoplasm of stomach, unspecified
CPT/HCPCS: 99282

== ENCOUNTER 2018-05-16 14:47 | Emergency (ER) | payer OTHER, SELFPAY ==
[2017-12-01 15:00] VITALS: BMI 37.5
[2018-05-16 14:48] VITALS: BP 154/88; PULSE 96; RESP 16; TEMP 36.4; O2SAT 98; BMI 32.5
--- NOTE | 2018-05-16 15:06 | RAD_ITS ---
STUDY: X-RAY - ABDOMEN/PELVIS REASON FOR EXAM: Male, 57 years old. J-tube evaluation evaluation TECHNIQUE: Single AP view of the abdomen / pelvis following injection of contrast. COMPARISON: None. FINDINGS: J-tube identified with partial opacification of jejunal bowel. No extravasation is seen. There is an unremarkable bowel gas pattern. There is no demonstrated free abdominal air. The visualized liver, spleen and kidneys are grossly normal in size and morphology. Normal soft tissue structures. Normal visualized osseous structures. RAD/Abdomen Single View IMPRESSION: 1. Satisfactory position of J-tube. No extravasation. Electronically Signed: Elder Tubbs MD at 15:42 EST , Service support ,
--- NOTE | 2018-05-16 15:08 | ED.VISSUMM ---
- ER Visit Summary Date of Service: 05/16/18 Chief Complaint: J-tube evaluation History of Present Illness: The patient is a 57 M presents for evaluation of J-tube which is slightly dislodged. Placed 3 weeks ago in [place] by Dr. Myers, recent diagnosed with stomach cancer with a gastrectomy 3 weeks ago with J-tube placement. This is for nighttime supplement. Can take oral intake. No abdominal pain. No fevers. Notices broken states yesterday, was able to feed last night. Today slightly more displaced. Physical Examination: General: Alert and oriented ?3, no acute distress HEENT: Normocephalic, atraumatic. Moist mucosa membranes Neck: supple, nontender. Cardiovascular: Regular rate and rhythm, no murmurs Respiratory: Normal breath sounds, symmetric, no distress Abdomen: Soft, nontender, nondistended. Upper abdominal incision across right upper quadrant to left upper quadrant clean, dry, intact. Mesh over incision. J-tube probably 4 cm displaced with broken stitches. Extremities: Nontender, no edema, pulses intact ?4 Neuro: no focal neurological deficits. Test Results: KUB with Gastrografin: J-tube in place Emergency Department Course and Treatment: Gastrografin KUB with in place J-tube. This was resecured sterile conditions both sides per request by family. Discharge with outpatient follow-up. Treatment Plan: [] Disposition: Discharge Impression: 1. J-tube displacement status post suturing This note was generated with [employer] dictation software. It may contain incorrect words, spelling, and punctuation that were not noted in review of the chart prior to signing ED Disposition - Plan for ED Patient: Disposition: Home or Assisted Living Diagnosis: J tube displacement Instructions: Gastrostromy or Gastro-jejunum Tube: Care Referrals: Ramsey Rosenthal, [Primary Care Provider] - Additional Instructions: Follow up with Dr. Myers.
[2018-05-16 16:58] VITALS: PULSE 88; RESP 16; O2SAT 98
== END 2018-05-16 17:02 | disposition home or self-care (01) ==
PROVIDERS: Emergency Provider Emergency Medicine; Family Provider Family Medicine; PCP Family Medicine
DX: T85.528A Displacement of other gastrointestinal prosthetic devices, implants and grafts, initial encounter (principal); Y83.3 Surgical operation with formation of external stoma as the cause of abnormal reaction of the patient, or of later complication, without mention of misadventure at the time of the procedure; Y92.9 Unspecified place or not applicable; I10 Essential (primary) hypertension; Z85.028 Personal history of other malignant neoplasm of stomach
CPT/HCPCS: 12002; 74018; 99283

== ENCOUNTER 2018-05-25 13:38 | Outpatient (RCR) | payer OTHER, SELFPAY ==
[2017-12-01 15:00] VITALS: BMI 37.5
[2018-01-27 12:47] VITALS: BMI 36.2
[2018-05-18 13:43] VITALS: BMI 32.9
== END 2018-05-25 23:59 | disposition home or self-care (01) ==
LOC: NS 13:38
PROVIDERS: Family Provider Family Medicine; PCP Family Medicine; Visit Provider Internal Medicine Hematology & Oncology
DX: D50.9 Iron deficiency anemia, unspecified (principal); Z71.3 Dietary counseling and surveillance
CPT/HCPCS: 97803

== ENCOUNTER → 2018-06-03 12:39 | Outpatient (CLI) | payer OTHER, SELFPAY ==
[2017-12-01 15:00] VITALS: BMI 37.5
[2018-05-18 13:43] VITALS: BMI 32.9
--- NOTE | 2018-06-03 12:44 | CT_ITS ---
STUDY: CT ABDOMEN AND PELVIS WITH CONTRAST REASON FOR EXAM: Male, 57 years old. Stomach cancer RADIATION DOSAGE (If Supplied By Facility): CTDIvol = ( 20.72 ) mGy, DLP = ( 2331.83 ) mGycm TECHNIQUE: Transaxial images were obtained from the dome of the diaphragm to the symphysis pubis without oral contrast. 100CC IV/Oral Isovue 300 was administered. Sagittal and coronal images were reconstructed. Individualized dose optimization techniques were used for this CT. COMPARISON: 11/18/2017. FINDINGS: There is right lateral seventh rib fracture.. The patient has history of distal esophagectomy and gastrectomy with duodenal pull-through. There is right lower lobe linear subsegmental atelectasis. There are multiple surgical staple lines within the posterior mediastinum at the level of the duodenal pull through. Additional staple lines in the abdomen. The visualized portions of the heart are within normal limits. There is mild stranding within the fat and 9 mm density adjacent to the upper surgical staple line within the abdomen superior to the origin of the celiac artery. There is linear stranding and small amount of fluid adjacent to the duodenal pull-through inferior to the left hemidiaphragm and adjacent to the spleen. Mild stranding in the fat anterior to the tail the pancreas. There is mild linear stranding in the fat adjacent to the surgical staple line in the manju hepatis adjacent to the portal vein which is patent. Normal liver. Normal gallbladder and extrahepatic biliary system. Normal spleen. Normal pancreas. Normal bilateral adrenal glands. Normal right kidney. Normal left kidney. There is a jejunostomy catheter. Normal colon. There is small appendicoliths, the appendix is otherwise normal.. Normal abdominal aorta. Normal inferior vena cava. Normal retroperitoneum. Normal urinary bladder. There is stranding within the anterior subcutaneous fat. Normal osseous structures. CT/Abdomen/Pelvis W IV Cont ONLY IMPRESSION: The patient has history of distal esophagectomy and gastrectomy with duodenal pull-through. Right lateral seventh rib fracture is incompletely included on the [id number] Right lower lobe linear subsegmental atelectasis mild stranding within the fat and 9 mm density adjacent to the upper surgical staple line within the abdomen superior to the origin of the celiac artery. There is linear stranding and small amount of fluid adjacent to the duodenal pull-through inferior to the left hemidiaphragm and adjacent to the spleen. Mild stranding in the fat anterior to the tail the pancreas. There is mild linear stranding in the fat adjacent to the surgical staple line in the manju hepatis adjacent to the portal vein which is patent. These findings may be postsurgical however infiltrative tumor cannot be excluded. This should be further evaluated with PET CT imaging Jejunostomy catheter Small appendicoliths otherwise normal appendix Stranding within the anterior subcutaneous fat likely postsurgical Electronically Signed: Valentin Finn, at 18:47 EDT Tel , Service support ,
--- NOTE | 2018-06-03 12:44 | CT_ITS ---
STUDY: CT CHEST WITH CONTRAST REASON FOR EXAM: Male, 57 years old. History of gastric cancer RADIATION DOSAGE (If Supplied By Facility): CTDIvol = ( 20.72 ) mGy, DLP = ( 2331.83 ) mGycm TECHNIQUE: Transaxial imaging was performed following intravenous administration of 100CC IV Isovue 300. Individualized dose optimization techniques were used for this CT. COMPARISON: None. FINDINGS: There is atelectasis versus scar formation throughout the posterior lateral right lower lobe. Focal pleural thickening is noted adjacent to a comminuted fracture of the posterior lateral right rib which is new from prior imaging . No confluent airspace infiltrate. No pleural effusion or pneumothorax. Normal heart and pericardium. There is postoperative change from distal esophagectomy and gastrectomy with duodenal pull through. No significant mediastinal or hilar lymphadenopathy. Normal enhanced pulmonary arteries. No central pulmonary embolism. Normal aorta arch and descending thoracic aorta. There are moderate multi-level degenerative changes of the thoracic spine. Visualized portions of the upper abdomen are unremarkable. CT/Chest WITH Contrast IMPRESSION: 1. Postoperative change from interval distal esophagectomy and gastrectomy with duodenal pole through 2. Posterior lateral right seventh rib fracture with adjacent pleural thickening and right lower lobe scar formation, all likely representing post thoracotomy change. Electronically Signed: Andre Zhong MD at 5:03 EDT Tel , Service support ,
== END ==
PROVIDERS: Family Provider Family Medicine; PCP Family Medicine; Referring Provider Internal Medicine Hematology & Oncology; Visit Provider Internal Medicine Hematology & Oncology
DX: C15.9 Malignant neoplasm of esophagus, unspecified (principal); Z98.890 Other specified postprocedural states
CPT/HCPCS: 71260; 74177; Q9967

== ENCOUNTER 2018-08-18 21:39 | Emergency (ER) | payer OTHER, SELFPAY ==
[2017-12-01 15:00] VITALS: BMI 37.5
[2018-08-18 08:53] VITALS: BMI 30.9
[2018-08-18 21:41] VITALS: BP 110/76; PULSE 77; RESP 15; TEMP 36.4; BMI 30.5
--- NOTE | 2018-08-18 23:32 | RAD_ITS ---
STUDY: X-RAY - ABDOMEN/PELVIS REASON FOR EXAM: Male, 57 years old. Check tube placement. Injecting 25 cc of Gastrografin into the tube. TECHNIQUE: AP supine abdomen. COMPARISON: May 16, 2018. FINDINGS: There is opacification of a loop of small bowel overlying the upper lumbar spine in the midline compatible with jejunum, similar in appearance to the prior study. No extravasation of contrast. There is an unremarkable bowel gas pattern. There is no demonstrated free abdominal air. The visualized liver, spleen and kidneys are grossly normal in size and morphology. Normal soft tissue structures. Normal visualized osseous structures. RAD/Abdomen Single View IMPRESSION: Jejunostomy tube in its expected location. No extravasation of injected contrast. Electronically Signed: Ham Ivey MD at 0:09 EDT , Service support ,
--- NOTE | 2018-08-19 00:23 | ED.DCSUM_ITS ---
- ER Visit Summary Date of Service: 08/19/18 Chief Complaint: Stitches came out of J-tube History of Present Illness: The patient is a 57 M with history of esophageal cancer. Patient has a J-tube that was placed at [facility] in April. Today while changing the dressing he noted the sutures were pulled out. The J-tube is still in place and flushes without difficulty. Physical Examination: Vital signs unremarkable. Patient lying in bed no acute distress. Heart is regular rate and rhythm. Lungs sounds are clear. Abdomen is soft. J-tube is in place. Sutures are pulled out and still tied around the J-tube itself. Test Results: [] Emergency Department Course and Treatment: Area around the J-tube site is anesthetized with 2 cc of 1% lidocaine. 2 sutures each 4-0 nylon were used to secure the J-tube in place. Following this KUB with Gastrografin was performed and J-tube is in good position. Treatment Plan: [] Disposition: Discharge Impression: Re-suturing of existing J-tube This note was generated with [employer] dictation software. It may contain incorrect words, spelling, and punctuation that were not noted in review of the chart prior to signing ED Disposition - Plan for ED Patient: Disposition: Home or Assisted Living Instructions: ED Wound Care Referrals: Ramsey Rosenthal DO [Primary Care Provider] -
[2018-08-19 00:24] VITALS: BP 112/78; PULSE 78; RESP 14; O2SAT 97
== END 2018-08-19 00:24 | disposition home or self-care (01) ==
PROVIDERS: Emergency Provider Emergency Medicine; Family Provider Family Medicine; PCP Family Medicine
DX: Z46.59 Encounter for fitting and adjustment of other gastrointestinal appliance and device (principal); Z85.01 Personal history of malignant neoplasm of esophagus; I10 Essential (primary) hypertension
CPT/HCPCS: 43761; 74018; 99283

== ENCOUNTER → 2018-08-25 | Outpatient (CLI) | payer OTHER, SELFPAY ==
[2017-12-01 15:00] VITALS: BMI 37.5
[2018-07-07 08:57] VITALS: BMI 31.8
[2018-08-24 12:50] VITALS: BMI 30.9
--- NOTE | 2018-08-25 08:02 | CT_ITS ---
STUDY: CT ABDOMEN WITH CONTRAST REASON FOR EXAM: Male, 57 years old. Chemotherapy check for esophageal cancer. History of gastrectomy and partial removal of the esophagus. Chemotherapy and radiation therapy. RADIATION DOSAGE (If Supplied By Facility): CTDIvol = ( 19.19 ) mGy, DLP = ( 1658.70 ) mGycm TECHNIQUE: Transaxial images were obtained post I.V. administration of 100ml IV/Oral Isovue 370, and with oral contrast. Sagittal and coronal images were reconstructed. Individualized dose optimization techniques were used for this CT. COMPARISON: CT scan chest done today. CT scan abdomen and pelvis 06/03/ FINDINGS: The visualized lung bases are unremarkable. The visualized portions of the heart are within normal limits. Normal liver. Normal gallbladder and extrahepatic biliary system. There is severe splenomegaly. The spleen is larger than it was on the May 2018 study. Normal pancreas. Normal bilateral adrenal glands. Normal right kidney. There is a 2 mm nonobstructive left lower pole renal calculus. There is no demonstrated renal calculus or hydronephrosis. The patient has undergone a previous partial esophagectomy and gastrectomy with a jejunal pull-through and a Tesfaye-en-Y jejunal-jejunal anastomosis. There is a percutaneous jejunostomy catheter, with its tip in a loop of jejunum. Otherwise normal small intestine. There is mural thickening and luminal narrowing of a long segment of transverse colon as well as the ascending colon. This might be an artifact of nondistention, however, the finding is suspicious for an infectious or inflammatory colitis. The cecum appears normal. There is moderately prominent fecal material in the ascending colon, sigmoid colon, and visualized upper rectum which may represent constipation. No evidence for inflammation in the visualized left hemicolon. The appendix is seen on axial images 63-71 and it appears normal. Normal abdominal aorta. Normal inferior vena cava. Normal retroperitoneum. Normal abdominal wall. There are diffuse degenerative changes of the visualized lumbar spine. There is right unilateral spondylolysis at the L5 level without associated spondylolisthesis. CT/Abdomen WITH IV Contrast IMPRESSION: Status post hysterectomy and partial esophagectomy with a jejunal pull-through and a Tesfaye-en-Y jejunal jejunal anastomosis. Jejunostomy tube in place. Mural thickening of the transverse colon and ascending colon. This might be an artifact of nondistention, however, appearance is suspicious for an infectious or inflammatory colitis. Prominent fecal material in the descending colon, sigmoid colon and visualized upper rectum suggesting constipation. Moderate splenomegaly, with increased splenic size since the May exam. No other evidence for lymphadenopathy or masses. Small nonobstructive left renal catheter was. No demonstrated ureteral calculus or hydronephrosis. Electronically Signed: Geovani Hager MD at 1:09 EDT , Service support ,
--- NOTE | 2018-08-25 08:02 | CT_ITS ---
STUDY: CT CHEST WITH CONTRAST REASON FOR EXAM: Male, 57 years old. Esophageal cancer. Prior esophageal resection. RADIATION DOSAGE (If Supplied By Facility): CTDIvol = ( 19.19 ) mGy, DLP = ( 1658.70 ) mGycm TECHNIQUE: Transaxial imaging was performed following intravenous administration of 100ML IV Isovue 370. Multiplanar coronal and sagittal images were reformatted. Individualized dose optimization techniques were used for this CT. COMPARISON: Comparison is made with prior study dated June 03, 2018 and November 18, 2017. FINDINGS: A right-sided portacatheter is seen with the tip in the superior vena cava. Mild degree of increased markings at the right lung base suggestive of scarring. There is no demonstrated pleural abnormality. Normal heart and pericardium. There are multiple small lymph nodes within the mediastinum, which are normal in size and morphology most compatible with reactive lymph hyperplasia. Normal hilar regions. Intraluminal filling defects are seen in branches of the right interlobar pulmonary artery and right lower lobe branches and compared with a pulmonary emboli. Normal aorta arch and descending thoracic aorta. There are multi-level degenerative changes of the thoracic spine. There is focal pleural thickening along the posterior lateral aspect of the right upper lobe. There is evidence of an underlying bony rib lesion measuring 1.5 cm. On prior study, there was a fracture at this site. It now appears to be a lytic lesion. Clinical correlation is recommended. Once again, the patient is status post esophagectomy with gastric pull through procedure. This is unchanged. CT/Chest WITH Contrast IMPRESSION: Pulmonary emboli involving the right interlobar pulmonary artery and the right lower lobe pulmonary branches. Status post esophagectomy and gastric pull-through procedure. Focal pleural thickening with a lytic lesion in the posterior right rib most likely representing the sixth rib. Electronically Signed: Luis Miguel Bennett, at 9:13 EDT , Service support ,
== END | disposition home or self-care (01) ==
LOC: CT 08:01
PROVIDERS: Family Provider Family Medicine; PCP Family Medicine; Referring Provider Internal Medicine Hematology & Oncology; Visit Provider Internal Medicine Hematology & Oncology
DX: C15.9 Malignant neoplasm of esophagus, unspecified (principal); C16.0 Malignant neoplasm of cardia
CPT/HCPCS: 71260; 74160; Q9967; A4216

== ENCOUNTER 2019-01-27 07:47 | Day surgery (SDC) | payer OTHER, SELFPAY ==
[2017-12-01 15:00] VITALS: BMI 37.5
[2018-12-01 09:02] VITALS: BMI 27.3
[2019-01-05 10:58] VITALS: BMI 26.3
--- NOTE | 2019-01-27 | IMM_PTH ---
PATIENT: EDUARDO WESTBROOK LOC: EN U#:[id number] AGE/SX: 58/M ROOM: RE01/27/[address]: Dr. Cyrus Johnson MD : 1960 BED: DIS: 01/27/2019 SPEC #: [id number] RECD: 01/29/19 10:27 STATUS: EDILBERTO REQ #: [id number] CAITIE: 01/27/19 00:[address]: Cyrus Johnson DEPT: IMMUNOHISTOCHEMISTRY RECD BY: Lissa Lubin ENTERED: 01/29/19 10:28 SP TYPE: IMMUNO OTHR DR: DO Dr. Aj Oakley MD Tissues: Pylorus Procedures: CK20 (add) CK5-6 (add) CK7 (add) CK8 (add) KI-67 (add) P16 (add) P53 (add) Pankeratin (add) P40 (add) HER-2-BARRY (initial) PHYSICIAN & [address] [address] SPECIMEN INFORMATION: Tissue Source: Biopsy of pylorus Clinical Info: Dysphagia, history of esophageal cancer Specimen Number: [id number] CPT code: 03528, 91190 x9 METHODOLOGY: Deparaffinized sections of prefer/formalin-fixed tissue or PAP/DQ stained slides are incubated with monoclonal/polyclonal antibodies/oligonucleotide probes. Localization is made via biotin free immunoperoxidase method. Appropriate controls are performed and reacted as expected. Results on target cell population are indicated in the following table: RESULTS: ANTIBODY / CLONE RESULT Her-2neu (CB11) negative (0) AE1-3 (AE1/AE3/PCK26) positive CK7 (OV-TL12/30) negative CK8 (85ppyhS42) positive CK20 (KS20.8) negative CK5-6 (D5 & 1684) positive P40 (BC28) positive P53 (DO-7) positive Ki-67 (30-9) positive, high P16 (E6H4) positive, block staining These tests were developed and their performance characteristics determined by [facility]. They may not have been cleared or approved by the U.S. Food and Drug Administration. The FDA has determined that such clearance or approval is not necessary. The above immunohistochemical/dualISH markers are ordered and reviewed by the Pathologist. INTERPRETATION: Pylorus, biopsy: Poorly differentiated carcinoma, favor squamous cell carcinoma. Case has been reviewed in consultation with Dr. Shine who concurs with the above diagnosis. IDC:[email or web address] SJ:wagner 02/01/19
--- NOTE | 2019-01-27 07:49 | CT_ITS ---
HISTORY: Follow-up esophageal cancer. Partial gastrectomy. Chemotherapy in November. Radiation treatments. TECHNIQUE: Helically acquired images were obtained of the chest following the intravenous administration of 100 ML of Isovue-370 Iodinated contrast. as per pulmonary angiogram protocol with 2D MIP reconstructions. A radiation dose optimization technique was used for this scan. COMPARISON: PET/CT images from September 07, 2018 FINDINGS: # of images incl. paperwork: [phone] A single lumen port is present within the right chest wall. The port access is the right IJ catheter. There is a slight looping of the catheter outside of the right IJ within the right neck. The catheter tip is within the SVC at the level of the junction of the SVC and the left brachiocephalic vein Lungs are clear but for some chronic age-related fibrotic disease and hyperexpansion. No effusions. Within the thoracic spinekyphoscoliosis. Loss of vertebral body height by degenerative changes with anterior enthesophytes and partial fusion across the disc space and calcification of the nucleus pulposus of the intervertebral disc is present at many levels. Vertebral body height narrowed at many levels from mild degenerative changes, and without acute insufficiency or pathologic fracture perceived Facets are well aligned. There is a fracture to the left posterior eighth rib that is a pathologic fracture due to tumor that is within the chest wall extending into the pleural space surrounding the inferior margin of the posterior portion of the scapular wing. Tumor was present within this location at the previous time. The fracture was present on the previous study as well. Heart is not enlarged. Thoracic aorta diseased with some calcific plaque. No aneurysms, stenoses, dissections, nor occlusions. Some mediastinal adenopathy is present. There is abnormal thickening of tissue, likely the esophagus throughout its course especially in the posterior mediastinum at the level of the heart. It is thickened and enlarged and extends in a tortuous course. There is adjacent atelectasis of the right lung. There is anastomotic staple line in the azygoesophageal recess which is filled by the esophagus and tissue. Some adenopathy is present within the posterior mediastinum. The appearance of the thickened esophagus and the adenopathy within the posterior mediastinum is similar to the previous study, however, the previous study the esophagus was distended with gas. On current study it is mostly decompressed of gas inferiorly, but has thicker patel. The few lymph nodes at the gastroesophageal junction, and within the abdomen just below the gastroesophageal junction appear to be slightly larger and more prominent than on the previous study. The liver is enlarged and fattily infiltrated. Visualized portions of the spleen, pancreas, and adrenal glands are normal. Periaortic adenopathy, at the level of the left renal hilum is much more severe than the previous study. CT/Chest WITH Contrast IMPRESSION: No pulmonary embolism, aortic aneurysm, or aortic dissection. Esophageal thickening and adenopathy within the inferior aspect of the chest likely represents worsening malignancy. Adenopathy within the posterior mediastinum and within the upper abdomen is more severe suggestive worsening metastatic disease. Metastatic lesion within the right chest wall by the right eighth rib with a right rib fracture at the posterior margin of the right scapular wing is similar in appearance to the previous study. Individualized dose optimization techniques were used for this CT. at 0241 Reported and signed by: Albert Romero MD Electronically Signed: Albert Romero MD at 2:40 EST Tel , Service support ,
[2019-01-27 08:05] LABS: CREATININE FINGERSTICK 0.9 mg/dL (0.70-1.30); EGFR FINGERSTICK > 60.0000 mL/min (>60)
[2019-01-27 13:53] VITALS: BP 124/79; PULSE 92; RESP 16; O2SAT 100; BMI 24.9
--- NOTE | 2019-01-27 14:00 | EGD_PTH ---
PATIENT: EDUARDO WESTBROOK LOC: EN U#:[id number] AGE/SX: 58/M ROOM: RE01/27/[address]: Dr. Cyrus Johnson MD : 1960 BED: DIS: 01/27/2019 SPEC #: [id number] RECD: 01/27/19 15:42 STATUS: EDILBERTO YUNIER #: [id number] CAITIE: 01/27/19 14:[address]: Cyrus Johnson DEPT: SURGICAL PATHOLOGY RECD BY: Oscar Delgado ENTERED: 01/28/19 11:31 SP TYPE: EGD BIOPSY OT DR: DO Dr. Aj Oakley MD Tissues: Pylorus Procedures: Surgery Specimen Level IV HEADER OPERATION: EGD ([facility] [place] PRE-OP DIAGNOSIS: Dysphagia, history esophageal cancer TISSUE SUBMITTED: Biopsy of pylorus MICROSCOPIC DIAGNOSIS Pylorus, biopsy: Poorly differentiated carcinoma, favor squamous cell carcinoma. See comment. SJ:wagner 01/29/19 COMMENT Immunohistochemistry ([id number]) supports the above diagnosis. The specimen also shows fragments of benign squamous epithelium with acute and chronic inflammation and food particle. 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 As per patient's EMR, the patient has h/o total gastrectomy. Correlation with clinical, endoscopic findings and appropriate follow up are necessary. Case has been reviewed in consultation with Dr. Shine who concurs with the above diagnosis. IDC:AM MICROSCOPIC DESCRIPTION Slides are reviewed. GROSS DESCRIPTION Received in fixative is one container labeled with the patient's name and designated biopsy of pylorus. The specimen consists of multiple irregular fragments of light edmondson soft tissue that in aggregate measure 1?x 0.5 x 0.1 cm. The specimen is totally submitted in one cassette. / ALFREDO:wagner 01/28/19 TC:0 [facility]: [id number] ADDENDUM ADDENDUM ADDENDUM ADDENDUM ADDENDUM ADDENDUM ADDENDUM 02/09/2019 10:03 ADDENDUM 02/25/2019 10:31 ADDENDUM 02/09/2019 10:03 ADDENDUM 02/09/2019 10:03 ADDENDUM 02/09/2019 10:03 ADDENDUM 02/09/2019 10:03 PD-L1 (KEYTRUDA) IMMUNOHISTOCHEMISTRY ANALYSIS FROM [facility] RESULTS: PD-L1 IHC Analysis for Gastric/GEJ Adenocarcinoma. Combined positive score: 2-3 (CPS>=1 / PD-L1 Expressed) Please see complete report in e-chart or EMR for complete details This addendum is added to incorporate an outside pathology consultation report. The case was examined at [facility] (#[id number]) and the following diagnosis was rendered. Pylorus, biopsy: Poorly differentiated carcinoma. Please see complete above mentioned consultation report in EMR
[2019-01-27] MEDS: Lactated Ringers 1,000 ML 100 ML IV (14:03)
--- NOTE | 2019-01-27 15:02 | HP.PCM_ITS ---
Problem List (1) Esophagus cancer Status: Acute Qualifiers: Malignant neoplasm of esophagus location: lower third History of Present Illness Date of Admission: 01/27/19 The patient is a 58 year old M who has a history of esophageal cancer with pull-through esophagectomy noticed that he had been having difficulty swallowing last night. He says off and on for the last few weeks he is been having difficulty with large solid foods and has been having to chew a lot more. He says yesterday he feels like something got stuck and is not moving forward anymore. He has not been able to eat or drink today. Past Medical History Past Medical History (Chronic Problems): Chronic Problems (Last Reviewed 01/27/19 @ 08:50 by Destiney Encinas) Iron deficiency anemia (Chronic) Anemia (Chronic) Gastroesophageal cancer (Chronic) Psoriasis (Chronic) Hypertension (Chronic) Sleep apnea (Chronic) Medical History: Medical History (Last Reviewed 01/27/19 @ 08:50 by Destiney Encinas) Gastroesophageal cancer (Chronic) C16.0 Regional lymph node metastasis present (Acute) C77.9 Dysphagia (Acute) R13.10 Psoriasis (Chronic) L40.9 Hypertension (Chronic) I10 Sleep apnea (Chronic) G47.30 Arthritis M19.90 Esophageal cancer Onset Date: ~11/2017 C15.9 History of gastrectomy Z90.3 04/24/18 peg tube removed 09-02-18 Allergies hydrocodone [From Vicodin] Allergy (Severe, Verified 01/27/19 08:50) Hallucination Penicillins Allergy (Severe, Verified 01/27/19 08:50) Rash Sulfa (Sulfonamide Antibiotics) Allergy (Severe, Verified 01/27/19 08:50) Rash Home Medications: Ambulatory Orders Medication Instructions Recorded CPAP head gear #1 ea 03/05/18 Acetaminophen Liquid [Tylenol 650 mg PO Q6H PRN PRN 05/11/18 Liquid] Rivaroxaban [Xarelto] 20 mg PO DAILY #30 tab 09/15/18 Mirtazapine [Remeron] 30 mg PO QHS 90 Days #90 tab 12/01/18 Gabapentin [Neurontin] 100 mg PO DAILY 30 Days #30 cap 01/05/19 Surgical History: Surgical History (Last Reviewed 01/27/19 @ 08:50 by Destiney Encinas) History of colonoscopy Z98.890 12/07/12 History of esophagogastroduodenoscopy (EGD) Onset Date: ~11/2017 Z98.890 History of orthopedic surgery Z98.890 Bilat Knee Repair History of varicose vein stripping Z98.890 Smoking Status: Never smoker Review of Systems Constitutional: Denies: Anorexia, Fever Eyes: Denies: Blurred vision HEENT: Reports: Difficulty Swallowing, Dysphasia Cardiovascular: Denies: Chest Pain Respiratory: Denies: Cough Gastrointestinal: Denies: Abdominal Pain, Nausea, Vomiting Skin: Denies: Jaundice Psychiatric: Denies: Anxiety Hematologic/ Lymphatic: Denies: Adenopathy VTE Information - Inpt Only VTE Present on Admission: No VTE Mechan Device Prophylaxis: SCD's Patient Problems: Active and Suspected Problems (Last Reviewed 01/27/19 @ 08:50 by Destiney Encinas) Anemia (Acute) - Physical Exam Vitals/I&O's: Vital Signs Pulse Resp BP Pulse Ox 92 16 124/79 H 100 01/27/19 13:53 01/27/19 13:53 01/27/19 13:53 01/27/19 13:53 Oxygen Delivery Method Room Air Weight: 183 lb 12.8 oz Body Mass Index (BMI) 24.9 General: Alert, Oriented x3 Neck: No JVD Lungs: Normal air movement Cardiovascular: Regular rate, Regular Rhythm Abdomen: Soft, Non Tender, Non-Distended Laboratory Results 01/27/19 08:01: POC Creatinine 0.9, POC Estimated GFR (eGFR) > 60.0000 Current Medications Heparin Sodium (Beef Lung) () 50 units IV UD PRN PRN Reason: Port-a-Cath (VAD)Heparin Flush Lactated Ringer's () 1,000 mls @ 100 mls/hr IV .Q10H HARMONY Last Admin: 01/27/19 14:03 Dose: 100 mls/hr Documented by: Sodium Chloride () 10 - 40 ml IV UD PRN PRN Reason: Port-a-Cath (VAD) Flush Sodium Chloride (0.9% Nacl (Sterile) Posiflush) 10 - 40 ml IV UD PRN PRN Reason: Port access or dressing change Assessment/Plan All Active Problems (Last Reviewed 01/27/19 @ 08:50 by Destiney Encinas) Anemia (Acute) Esophagus cancer (Acute) Educational circumstance (Acute) Chemotherapy management, encounter for (Acute) Dehydration (Acute) Encounter for education (Acute) Adjustment disorder (Acute) Oral candidiasis (Resolved) CINV (chemotherapy-induced nausea and vomiting) (Acute) Neuropathy (Acute) Weight loss, unintentional (Acute) Pulmonary emboli (Acute) Jejunostomy tube present (Acute) Drainage from wound (Acute) Hypokalemia (Acute) Chemotherapy management, encounter for (Acute) Regional lymph node metastasis present (Acute) Dysphagia (Acute) 58-year-old male with history of esophageal cancer and dysphagia 1. Plan for EGD to check if there is food or recurrence of the cancer that is causing his dysphagia. 2. I explained endoscopy in detail to the patient. I explained the risks including but not limited to stroke or heart attack with anesthesia, perforation of the GI tract, bleeding, infection. I explained that any of these could necessitate further emergency surgery. The patient understands and all questions were answered sufficiently. The patient wishes to proceed with procedure. Discussed increased risk of aspiration pneumonia due to the patient's obstruction. Cyrus Johnson MD Pager: [facility] [address] [place] [address], [address] [place] [address] Office:
--- NOTE | 2019-01-27 15:26 | OP.EGD_ITS ---
Patient Name: Kareem Gomez Procedure Date: 01/27/2019 2:59 PM Date of : 1960 Age: 58 Procedure: Upper GI endoscopy Indications: Dysphagia Providers: Cyrus Johnson MD Referring MD: jA Andrews Medicines: Propofol per Anesthesia Patient Profile: This is a 58 year old male. Refer to note in patient chart for documentation of history and physical. Complications: No immediate complications. Estimated blood loss: Minimal. Procedure: Pre-Anesthesia Assessment: - Prior to the procedure, a History and Physical was performed, and patient medications and allergies were reviewed. The patient's tolerance of previous anesthesia was also reviewed. The risks and benefits of the procedure and the sedation options and risks were discussed with the patient. All questions were answered, and informed consent was obtained. Prior Anticoagulants: The patient has taken no previous anticoagulant or antiplatelet agents. After reviewing the risks and benefits, the patient was deemed in satisfactory condition to undergo the procedure. After obtaining informed consent, the endoscope was passed under direct vision. Throughout the procedure, the patient's blood pressure, pulse, and oxygen saturations were monitored continuously. The gastroscope was introduced through the mouth, and advanced to the pylorus. The upper GI endoscopy was accomplished without difficulty. The patient tolerated the procedure well. Scope In: 3:12:57 PM Scope Out: 3:20:24 PM Total Procedure Duration Time 0 hours 7 minutes 27 seconds Findings: Evidence of an esophagectomy was found in the chest. This was characterized by severe stenosis at the pylorus with food fragments proximal to this. The pylorus was unable to be traversed with the scope and it was friable and firm. Food was removed proximal to this using Vazquez net. Biopsies were taken with a cold forceps for histology. Impression: - A gastroenterostomy was found, characterized by severe stenosis. Biopsied. Recommendation: - Full liquid diet. - Continue present medications. - Await pathology results. Procedure Code(s): --- Professional --- 55736, 52, Esophagogastroduodenoscopy, flexible, transoral; with biopsy, single or multiple Diagnosis Code(s): --- Professional --- Z98.0, Intestinal bypass and anastomosis status R13.10, Dysphagia, unspecified CPT copyright 2017 [employer]. All rights reserved. The codes documented in this report are preliminary and upon invoice coder review may be revised to meet current compliance requirements. Cyrus Johnson MD 01/27/2019 3:26:06 PM This report has been signed electronically. Number of Addenda: 0 Note Initiated On: 01/27/2019 2:59 PM
[2019-01-27 15:31] VITALS: BP 123/87; BP 124/79; PULSE 94; RESP 18; TEMP 36.3; O2SAT 99
[2019-01-27 15:35] VITALS: BP 123/86; BP 124/79; PULSE 92; RESP 18; O2SAT 99
[2019-01-27 15:40] VITALS: BP 124/79; BP 128/88; PULSE 91; RESP 18; O2SAT 99
[2019-01-27 15:44] VITALS: BP 124/79; BP 126/87; PULSE 93; RESP 18; TEMP 36.9; O2SAT 97
[2019-01-27 16:15] VITALS: BP 124/79
[2019-01-27] MEDS: 0.9% Saline Lock 10 ML Syringe IV (16:17)
== END 2019-01-27 16:25 | disposition home or self-care (01) ==
LOC: CT 10:51 → EN 11:08 → AC 13:30
PROVIDERS: Internal Medicine Hematology & Oncology; Family Provider Family Medicine; PCP Family Medicine; Referring Provider Surgery; Visit Provider Surgery
PROC: 0DJ08ZZ Inspection of Upper Intestinal Tract, Via Natural or Artificial Opening Endoscopic (ICD-10-PCS; CPT 43235; principal; 2019-01-27 13:55)
DX: C16.4 Malignant neoplasm of pylorus (principal); R13.10 Dysphagia, unspecified; Z98.0 Intestinal bypass and anastomosis status; Z85.01 Personal history of malignant neoplasm of esophagus; D50.9 Iron deficiency anemia, unspecified; I10 Essential (primary) hypertension; G47.30 Sleep apnea, unspecified; C77.9 Secondary and unspecified malignant neoplasm of lymph node, unspecified; Z88.5 Allergy status to narcotic agent; Z88.0 Allergy status to penicillin; Z88.2 Allergy status to sulfonamides; Z90.3 Acquired absence of stomach [part of]
CPT/HCPCS: 43239; 71260; 88305; 88341; 88342; J7120; Q9967; A4216

== ENCOUNTER → 2019-02-01 17:58 | Outpatient (CLI) | payer OTHER, SELFPAY ==
[2017-12-01 15:00] VITALS: BMI 37.5
[2019-01-05 10:58] VITALS: BMI 26.3
[2019-01-27 13:53] VITALS: BMI 24.9
--- NOTE | 2019-02-01 18:03 | MRI_ITS ---
STUDY: MRI ABDOMEN WITH AND WITHOUT CONTRAST REASON FOR EXAM: Male, 58 years old. Evaluate for liver lesions. Esophageal cancer, postchemotherapy and radiation, esophagectomy and gastrectomy. TECHNIQUE: Standardized fat and water weighted pulse sequences were obtained in all 3 orthogonal planes post contrast administration. IV Dotarem 18 was administered for the contrast portion of the examination. COMPARISON: CT chest 01/27/2019, PET CT 09/07/2018, CT abdomen and pelvis 06/03/2018 FINDINGS: There is mild bibasilar atelectasis. The visualized portions of the heart are within normal limits. There is a marked decrease in the signal intensity of the liver on the axial T1-weighted images on the opposed-phase images as compared to the in-phase images, consistent with diffuse steatosis. There is no enhancing liver lesion. There is a stable 5 mm inferior right hepatic lobe cyst. Normal gallbladder and extrahepatic biliary system. Normal spleen. There is a 1.8 x 1.5 cm exophytic prominence from the inferior pancreatic body is isointense on all sequences and enhances similar to the surrounding pancreatic parenchyma, best seen on postcontrast image 54. This is similar to prior exams. There is enhancing, ill-defined soft tissue surrounding thin linear calcification, just superior to the celiac artery measuring approximately 3.2 x 2.7 cm best seen on series 7 image 36 is new since prior exams and soft tissue in the left periaortic region measuring 2.7 x 2.8 cm on series 4 image 20 and series 1202 image 80 is increased in size since prior exam (previously 1.1 x 0.9 cm). Normal bilateral adrenal glands. Normal right kidney. Normal left kidney. There is esophagectomy and gastrectomy with jejunal pull-through. Normal abdominal aorta. Normal inferior vena cava. There are postoperative changes of the anterior abdominal wall. There are diffuse degenerative changes of the visualized lumbar spine. MRI/MRI Abd WITH and W/O Contrast IMPRESSION: 1. There is no hepatic lesion. 2. Enhancing ill-defined soft tissue just superior to the celiac artery and in the left periaortic region consistent with adenopathy, concerning for kwabena metastases, are new and increased in size as described above. 3. Exophytic prominence from the inferior pancreatic body is isointense on all sequences including postcontrast sequences, unchanged since May. Continued close follow-up is recommended as pancreatic lesion cannot be excluded. Electronically Signed: Jonah Amaya, at 10:07 EST Tel , Service support ,
== END ==
PROVIDERS: Family Provider Family Medicine; PCP Family Medicine; Referring Provider Internal Medicine Hematology & Oncology; Visit Provider Internal Medicine Hematology & Oncology
DX: K76.9 Liver disease, unspecified (principal)
CPT/HCPCS: 74183; A9575; A4216

== ENCOUNTER 2019-03-21 15:09 | Emergency (ER) | payer OTHER, SELFPAY ==
[2017-12-01 15:00] VITALS: BMI 37.5
[2019-02-18 15:22] VITALS: BMI 25.5
[2019-03-21 15:10] VITALS: BP 132/96; PULSE 98; RESP 18; TEMP 36.8; O2SAT 99; BMI 23.5
--- NOTE | 2019-03-21 15:37 | ED.VIS.GEN ---
History of Present Illness Chief Complaint: Constipation Informant: Patient, Family Onset: Weeks - 1 Narrative: Patient sent in the ED by his oncologist Dr. Lake due to constipation. History of esophageal cancer diagnosed in 2018, is currently on immunotherapy. He was started on Percocet little over week ago for pain control taken every 6 hours. Started having constipation, last bowel movement a week ago after 2 bottles of mag citrate. He does have flatus, he is on Senokot twice a day he started on MiraLAX a couple days ago, took mag citrate yesterday and this morning with no results. States had a CAT scan 2 days ago due to lower abdominal pain that was reported large amount of stools. Denies nausea or vomiting. Denies fevers. Prior similar symptoms: No Past Medical History - Allergies and Home Meds Allergies/Adverse Reactions: Allergies hydrocodone [From Vicodin] Allergy (Severe, Verified 03/21/19 15:24) Hallucination Penicillins Allergy (Severe, Verified 03/21/19 15:24) Rash Sulfa (Sulfonamide Antibiotics) Allergy (Severe, Verified 03/21/19 15:24) Rash Primary Care Physician: Ramsey Rosenthal DO [Primary Care Provider] - Smoking Status: Never smoker Review of Systems All systems negative except as indicated General: Denies: Chills, Fever, Sweats Eyes: Denies: Visual changes - bilaterally, Diplopia ENT: Denies: Rhinorrhea, Sore throat Cardiovascular: Denies: Chest pain, Palpitations Respiratory: Denies: Dyspnea, Cough, Dyspnea on exertion Gastrointestinal: Reports: Constipation. Denies: Abdominal pain, Nausea, Vomiting, Diarrhea, Melena, Hematochezia Genitourinary: Denies: Dysuria, Hematuria, Frequency Musculoskeletal: Denies: Back pain, Extremity Pain Skin: Denies: Rash, Wounds Neurological: Denies: Headache, Weakness, Numbness Physical Exam Vital Signs/Narrative: Vital Signs Temp Pulse Resp BP Pulse Ox 03/21/19 15:10 98.3 F 98 18 132/96 H 99 Inital Vital Signs reviewed: Yes General: Well nourished, Well developed, No Acute Distress Head: Normocephalic, Atraumatic Eyes: Perrl, EOMI ENT: Moist mucous membranes, No rhinorrhea Neck: Supple, Nontender Cardiovascular: Regular rate, Regular rhythm, No murmurs Respiratory: No distress, CTA bilaterally, Chest nontender Abdomen: Soft, Nontender, Nondistended, Normal bowel sounds Rectal: Nontender, - - Negative for any stool impaction, brown stools. Back: Nontender, Normal Inspection Extremities: Nontender, No edema Skin: Normal color, No rash Neurological: Alert, Oriented x3, Cranial nerves II-XII grossly intact, Normal Strength, Normal Sensation Psychological: Normal affect, Normal Mood Diagnostic/Tx/Re-eval KUB 1 view: Primary stools located splenic flexure, no acute process. - Medical Decision Making Patient nontender abdomen. He is having flatus. Unable to pull up CT scan from 2 days ago. History recently started opiates likely cause of his constipation. He is currently finding a regimen to allow for bowel movements. On rectal exam there is no impaction, I did obtain a KUB, stool location currently at the splenic flexure. Discussed with patient enemas will not help at this time. He has had colonoscopies in the past and has used GoLYTELY. I will write him a prescription for this. Discussed he does not have to have bowel movements until they are clear. He will continue to work with the physicians to find a regimen to help with daily bowel movements. Signs of discussed return. All questions were answered. ED Disposition - Plan for ED Patient: Disposition: Home or Assisted Living Diagnosis: Constipation due to opioid therapy Instructions: CONSTIPATION (Adult) Prescriptions: [id number]/Sod Sulf,Bicarb,Cl/KCl [Golytely Solution] 4,000 ml PO PRN PRN #1 [email or web address] PRN Reason: Constipation Transmission Status: Pending to [facility] [facility] Referrals: Ramsey Rosenthal DO [Primary Care Provider] - 3-5 Days if not improving Ajit Lake DO [STAFF PHYSICIAN] - 3-5 Days if not improving
--- NOTE | 2019-03-21 16:28 | RAD_ITS ---
STUDY: X-RAY - ABDOMEN/PELVIS REASON FOR EXAM: Male, 58 years old. CONSTIPATED. TECHNIQUE: Two AP supine views of the abdomen and pelvis. COMPARISON: 08/18/18. FINDINGS: Normal visualized lung bases. Multiple distended loops of predominantly large, but also small bowel. Large stool burden. No free air Normal soft tissue structures. Normal visualized osseous structures. RAD/Abdomen Single View IMPRESSION: Large stool burden with multiple distended loops of predominantly large bowel which is presumed secondary to downstream stool burden. Electronically Signed: Jeison Duong, at 18:10 EST Tel , Service support ,
[2019-03-21 16:38] VITALS: BP 124/83; PULSE 94; RESP 15; O2SAT 99
== END 2019-03-21 17:00 | disposition home or self-care (01) ==
PROVIDERS: Emergency Provider Emergency Medicine; Family Provider Family Medicine; PCP Family Medicine
DX: K59.03 Drug induced constipation (principal); T40.2X5A Adverse effect of other opioids, initial encounter; Z85.01 Personal history of malignant neoplasm of esophagus; Z88.0 Allergy status to penicillin; Z88.2 Allergy status to sulfonamides; Z88.5 Allergy status to narcotic agent
CPT/HCPCS: 74018; 99282

== ENCOUNTER 2019-04-18 08:57 | Emergency (ER) | payer OTHER, SELFPAY ==
[2017-12-01 15:00] VITALS: BMI 37.5
[2019-04-18 08:58] VITALS: BP 137/59; PULSE 89; RESP 16; TEMP 36.7; O2SAT 100; BMI 21.7
--- NOTE | 2019-04-18 09:17 | RAD_ITS ---
STUDY: X-RAY - UNILATERAL RIBS ( LEFT ) WITH CHEST REASON FOR EXAM: Male, 58 years old. hx esophageal cancer, fell last night posterior mid rib pain left side TECHNIQUE - RIBS: 4 view(s) of the ribs. TECHNIQUE - CHEST: Single PA view of the chest. COMPARISON: 12/08/2017 FINDINGS - RIBS: Normal visualized ribs without a demonstrated fracture. FINDINGS - CHEST: Right internal jugular chest port with interval retraction of the tip the catheter to the right brachiocephalic vein. The lungs are clear and expanded. There is no demonstrated pleural abnormality. Normal size heart. Normal mediastinum and osmin. Normal visualized pulmonary arteries. Normal visualized aortic arch and descending thoracic aorta. Normal visualized thoracic spine. Interval resection of the right seventh rib. There is no demonstrated abnormality of the visualized soft tissue structures of the upper abdomen. RAD/Ribs Uni Min 3V w/PA Chest IMPRESSION: RIBS: Normal x-ray examination of the ribs. CHEST: No active disease. Right internal jugular chest port with the catheter retracted the right brachiocephalic vein. Electronically Signed: Yahir Jeffries MD at 9:58 EST Tel , Service support ,
[2019-04-18] MEDS: morphine 8 MG/ML Syringe IM (09:28)
[2019-04-18] MEDS: Diphth,Pertuss(Acell),Tet Vac 0.5 ML Vial IM (09:28)
--- NOTE | 2019-04-18 09:29 | ED.VISSUMM ---
- ER Visit Summary Date of Service: 04/18/19 Chief Complaint: Fall History of Present Illness: The patient is a [address] Ramsey Rosenthal and Dr. James. Patient reports that just prior to coming to the emergency department he missed a step and slid down the steps on his back. He reports that he has pain to the lower ribs on the back left. He states this is 7 out of 10 with movement. He denies any shortness of breath. He denies any blow to the head or loss of consciousness. He is on Xarelto. He denies neck, shoulder, wrist, or hip pain. He has multiple abrasions and rug boles. He is unsure when his last tetanus shot was. Physical Examination: Vitals: Stable. Afebrile. Neck: No vertebral tenderness. Full ROM without difficulty. Cleared by NEXUS criteria. Back: No vertebral tenderness. Mild tenderness palpation over the lower ribs on the left. No pain with lateral compression of the chest. No crepitus. Abrasion over approximately T8-T10. No vertebral tenderness. General: A&O x 3. NAD. Cardiovascular exam: Regular rate and rhythm, no murmur, rub or gallop. Respiratory exam: Clear to auscultation bilaterally. No wheezes or stridor. Abdominal exam: Soft, nontender, nondistended, normal bowel sounds. No pain in RUQ or LUQ specifically. No peritoneal signs. Extremity: Atraumatic. No pain with range of motion. Abrasions on the lateral surface of his ankles bilaterally. No pain with range of motion. He has an abrasion on the medial side of the right fifth metacarpal head. There is no pain with range of motion. No pain with axial load of his finger. Test Results: Clinical Impression(s) from Imaging Studies Ribs w/Chest X-Ray 04/18/19 09:17 IMPRESSION: RIBS: Normal x-ray examination of the ribs. CHEST: No active disease. Right internal jugular chest port with the catheter retracted the right brachiocephalic vein. Electronically Signed: Yahir Jeffries MD at 9:58 EST Tel , Service support , Emergency Department Course and Treatment: Patient was given a dose of Adacel IM. He was given morphine IM. He had his wound cleansed and dressings were placed. He is resting comfortably. Treatment Plan: Patient already has a fentanyl patch and oxycodone for breakthrough pain. He will be discharged with instructions to follow-up his primary care physician in 1 week if not improving. Return to the emergency department for any worsening symptoms. Disposition: To home in improved and stable condition. Impression: 1. Fall. 2. Abrasions right hand, back, ankles bilaterally. 3. Back contusion. 4. Coagulopathy on Xarelto. This note was generated with Hang[employer] dictation software. It may contain incorrect words, spelling, and punctuation that were not noted in review of the chart prior to signing ED Disposition - Plan for ED Patient: Instructions: Rib Contusion Referrals: Ramsey Rosenthal DO [Primary Care Provider] - 1 Week if not improving
[2019-04-18 09:33] VITALS: O2SAT 98
== END 2019-04-18 10:43 | disposition home or self-care (01) ==
LOC: ED 09:34
PROVIDERS: Emergency Provider Emergency Medicine; PCP Family Medicine
DX: S20.229A Contusion of unspecified back wall of thorax, initial encounter (principal); S60.512A Abrasion of left hand, initial encounter; S60.511A Abrasion of right hand, initial encounter; S30.810A Abrasion of lower back and pelvis, initial encounter; W10.9XXA Fall (on) (from) unspecified stairs and steps, initial encounter; D68.9 Coagulation defect, unspecified; Z79.01 Long term (current) use of anticoagulants; Z85.01 Personal history of malignant neoplasm of esophagus; Y93.9 Activity, unspecified; Y92.9 Unspecified place or not applicable; Y99.9 Unspecified external cause status; Z86.711 Personal history of pulmonary embolism
CPT/HCPCS: 71101; 90471; 90715; 96372; 99283